=== PATIENT | female | born 1965 | race Caucasian/White ===

== ENCOUNTER → 2016-03-29 | Outpatient (CLI) | payer OTHER | END | disposition home or self-care (01) | LOC: LABWHC1 14:28 | PROVIDERS: ATTEND Psychiatry & Neurology Psychiatry | DX: F31.32 Bipolar disorder, current episode depressed, moderate (principal) | CPT/HCPCS: 36415; 80178 ==

== ENCOUNTER 2016-08-28 10:18 | Observation (INO) | payer OTHER ==
[2016-08-28] MEDS ORDERED: SODIUM CHLORIDE 0.9% 1,000 ML IV STA (10:25)
--- NOTE | 2016-08-28 10:29 | ED ---
General Adult HPI - General Stated complaint: Poss overdose Time Seen by Provider: 08/28/16 10:18 Source: RN notes reviewed - History of Present Illness Initial comments: This is an 50-year-old female who presents emergency Department after family found her with altered mental status. Family thinks she may have taken too many of her cervical. Patient denies this she is arousable with loud verbal or physical stimuli. Patient states she's been circled for quite a while she took her normal dose. Patient states she's also on pain medication. Patient states she did not take extra of her pain medication. Patient does not know why she is sleepy and tired. Patient states she did not take any [id number] medications such as Benadryl. Patient denies any recent drinking. Patient states she did not stay up late. Patient denies headache patient denies numbness weakness. Patient denies any lightheadedness dizziness or near syncopal episode. Patient denies palpitations. Patient denies abdominal pain patient denies nausea vomiting or diarrhea. Patient denies any recent fever chills. - Related Data Home Medications Medication Instructions Recorded Confirmed Butalb/APAP/Caff 50-325-40Mg 1 tab PO Q6H PRN 10/27/15 08/28/16 [Fioricet 50-325-40] [place] Carbonate 600 mg PO HS 10/27/15 08/28/16 Mirtazapine [Remeron] 15 mg PO HS 10/27/15 08/28/16 FLUoxetine HCL [PROzac] 40 mg PO HS 08/28/16 08/28/16 [place] Carbonate 300 mg PO QAM 08/28/16 08/28/16 [place] ER [Lithobid] 450 mg PO DAILY@1200 08/28/16 08/28/16 Mirtazapine [Remeron] 30 mg PO HS 08/28/16 08/28/16 Prazosin [Minipress] 1 mg PO HS 08/28/16 08/28/16 QUEtiapine FUMARATE [SEROquel] 600 mg PO HS 08/28/16 08/28/16 SUMAtriptan SUCCINATE [Imitrex] 50 mg PO ONCE PRN MDD 2 TABLETS 08/28/16 hydrOXYzine PAMOATE 50 mg PO TID PRN 08/28/16 08/28/16 oxyCODONE-APAP 10-325MG [Percocet 1 tab PO BID PRN 08/28/16 08/28/16 10-325 mg] Allergies Allergy/AdvReac Type Severity Reaction Status Date / Time morphine Allergy Unknown Verified 10/27/15 16:25 pregabalin [From Lyrica] AdvReac Severe Nausea & Verified 10/27/15 16:25 Vomiting Review of Systems ROS Statement: Those systems with pertinent positive or pertinent negative responses have been documented in the HPI. ROS Other: All systems not noted in ROS Statement are negative. Past Medical History Past Medical History: COPD, Hyperlipidemia Additional Past Medical History / Comment(s): back pain, traumatic brain injury History of Any Multi-Drug Resistant Organisms: None Reported Past Surgical History: Appendectomy, Breast Surgery, Section, Ear Surgery, Hysterectomy Additional Past Surgical History / Comment(s): polyps from colon/ exploratory, neck surgery Past Psychological History: Anxiety, Depression Smoking Status: Current every day smoker Past Alcohol Use History: None Reported Past Drug Use History: None Reported General Exam - General Exam Comments Initial Comments: GENERAL: Patient is well-developed and well-nourished. Patient is nontoxic and well- hydrated and is in no acute distress. Patient is very lethargic and falls asleep quickly while talking to him. ENT: Neck is soft and supple. No significant lymphadenopathy is noted. Oropharynx is clear. Moist mucous membranes. Neck has full range of motion without eliciting any pain. EYES: The sclera were anicteric and conjunctiva were pink and moist. Extraocular movements were intact and pupils were equal round and reactive to light. Eyelids were unremarkable. PULMONARY: Unlabored respirations. Good breath sounds bilaterally. No audible rales rhonchi or wheezing was noted. CARDIOVASCULAR: There is a regular rate and rhythm without any murmurs gallops or rubs. ABDOMEN: Soft and nontender with normal bowel sounds. No palpable organomegaly was noted. There is no palpable pulsatile mass. SKIN: Skin is clear with no lesions or rashes and otherwise unremarkable. NEUROLOGIC: Patient is alert and oriented 2. Cranial nerves II through XII are grossly intact. Motor and sensory are also intact. Normal speech, volume and content. Symmetrical smile. MUSCULOSKELETAL: Normal extremities with adequate strength and full range of motion. No lower extremity swelling or edema. No calf tenderness. LYMPHATICS: No significant lymphadenopathy is noted PSYCHIATRIC: Patient denies any suicidal homicidal ideations. Patient denies any intentional overdose. Patient denies having taken any extra medications. Course Vital Signs 08/28/16 08/28/16 08/28/16 10:24 11:12 12:00 Temperature 98.3 F Pulse Rate 110 H 101 H 89 Respiratory 18 14 18 Rate Blood Pressure 116/72 95/58 121/83 O2 Sat by Pulse 98 99 100 Oximetry Medical Decision Making - Medical Decision Making EKG shows normal sinus rhythm at 99 bpm OR interval is 196 QRS is 88 QT interval 370 QTC is 485 per patient's EKG shows no ST segment elevation or depression or T-wave abdomen is noted. Dr. Villagran came down and saw the patient wanted the patient admitted for polysubstance abuse. I wrote admitting orders. - Lab Data Result diagrams: 08/28/16 10:34 08/28/16 10:34 Lab Results 08/28/16 08/28/16 08/28/16 Range/Units 10:34 10:34 10:54 WBC 12.4 H (3.8-10.6) k/uL RBC 3.96 (3.80-5.40) m/uL Hgb 12.1 (11.4-16.0) gm/dL Hct 35.4 (34.0-46.0) % MCV 89.4 (80.0-100.0) fL MCH 30.5 (25.0-35.0) pg MCHC 34.1 (31.0-37.0) g/dL RDW 13.0 (11.5-15.5) % Plt Count 246 (150-450) k/uL Neutrophils % 77 % Lymphocytes % 13 % Monocytes % 8 % Eosinophils % 1 % Basophils % 0 % Neutrophils # 9.6 H (1.3-7.7) k/uL Lymphocytes # 1.6 (1.0-4.8) k/uL Monocytes # 0.9 (0-1.0) k/uL Eosinophils # 0.1 (0-0.7) k/uL Basophils # 0.0 (0-0.2) k/uL Sodium 142 (137-145) mmol/L Potassium 4.4 (3.5-5.1) mmol/L Chloride 111 H (98-107) mmol/L Carbon Dioxide 23 (22-30) mmol/L Anion Gap 8 mmol/L BUN 10 (7-17) mg/dL Creatinine 0.65 (0.52-1.04) mg/dL Est GFR (MDRD) Af Amer >60 (>60 ml/min/1.73 sqM) Est GFR (MDRD) Non-Af >60 (>60 ml/min/1.73 sqM) Glucose 102 H (74-99) mg/dL Calcium 9.1 (8.4-10.2) mg/dL Total Bilirubin 0.7 (0.2-1.3) mg/dL AST 26 (14-36) U/L ALT 20 (9-52) U/L Alkaline Phosphatase 94 (38-126) U/L Total Protein 6.8 (6.3-8.2) g/dL Albumin 4.0 (3.5-5.0) g/dL Urine HCG, Qual (Not Detectd) Salicylates <1.0 mg/dL Urine Opiates Screen Not Detected (NotDetected) Ur Oxycodone Screen Detected H (NotDetected) Urine Methadone Screen Not Detected (NotDetected) Ur Propoxyphene Screen Not Detected (NotDetected) Acetaminophen <10.0 ug/mL Ur Barbiturates Screen Not Detected (NotDetected) U Tricyclic Antidepress Detected H (NotDetected) Ur Phencyclidine Scrn Not Detected (NotDetected) Ur Amphetamines Screen Not Detected (NotDetected) U Methamphetamines Scrn Not Detected (NotDetected) U Benzodiazepines Scrn Not Detected (NotDetected) Urine Cocaine Screen Not Detected (NotDetected) U Marijuana (THC) Screen Detected H (NotDetected) Serum Alcohol <10 mg/dL 08/28/16 Range/Units 10:54 WBC (3.8-10.6) k/uL RBC (3.80-5.40) m/uL Hgb (11.4-16.0) gm/dL Hct (34.0-46.0) % MCV (80.0-100.0) fL MCH (25.0-35.0) pg MCHC (31.0-37.0) g/dL RDW (11.5-15.5) % Plt Count (150-450) k/uL Neutrophils % % Lymphocytes % % Monocytes % % Eosinophils % % Basophils % % Neutrophils # (1.3-7.7) k/uL Lymphocytes # (1.0-4.8) k/uL Monocytes # (0-1.0) k/uL Eosinophils # (0-0.7) k/uL Basophils # (0-0.2) k/uL Sodium (137-145) mmol/L Potassium (3.5-5.1) mmol/L Chloride (98-107) mmol/L Carbon Dioxide (22-30) mmol/L Anion Gap mmol/L BUN (7-17) mg/dL Creatinine (0.52-1.04) mg/dL Est GFR (MDRD) Af Amer (>60 ml/min/1.73 sqM) Est GFR (MDRD) Non-Af (>60 ml/min/1.73 sqM) Glucose (74-99) mg/dL Calcium (8.4-10.2) mg/dL Total Bilirubin (0.2-1.3) mg/dL AST (14-36) U/L ALT (9-52) U/L Alkaline Phosphatase (38-126) U/L Total Protein (6.3-8.2) g/dL Albumin (3.5-5.0) g/dL Urine HCG, Qual Not Detected (Not Detectd) Salicylates mg/dL Urine Opiates Screen (NotDetected) Ur Oxycodone Screen (NotDetected) Urine Methadone Screen (NotDetected) Ur Propoxyphene Screen (NotDetected) Acetaminophen ug/mL Ur Barbiturates Screen (NotDetected) U Tricyclic Antidepress (NotDetected) Ur Phencyclidine Scrn (NotDetected) Ur Amphetamines Screen (NotDetected) U Methamphetamines Scrn (NotDetected) U Benzodiazepines Scrn (NotDetected) Urine Cocaine Screen (NotDetected) U Marijuana (THC) Screen (NotDetected) Serum Alcohol mg/dL Disposition Clinical Impression: Polysubstance abuse, Accidental overdose Disposition: ADMITTED IP TO THIS [facility] Referrals: Nonstaff,Physician [REFERRING] - 1-2 days Time of Disposition: 12:37
[2016-08-28 10:44] LABS: Basophils % (A) 0 %; CH 29.8; CHCM 33.5; Eosinophils # (A) 0.1 k/uL (0-0.7); Eosinophils % (A) 1 %; HCT 35.4 % (34.0-46.0); HDW 2.74; HGB 12.1 gm/dL (11.4-16.0); Luc # (Auto) 0.13; Luc % (Auto) 1; Lymphocytes # (A) 1.6 k/uL (1.0-4.8); Lymphocytes % (A) 13 %; MCH 30.5 pg (25.0-35.0); MCHC 34.1 g/dL (31.0-37.0); MCV 89.4 fL (80.0-100.0); Monocytes # (A) 0.9 k/uL (0-1.0); Monocytes % (A) 8 %; Neutrophils # (A) 9.6 k/uL (1.3-7.7); Neutrophils % (A) 77 %; RBC 3.96 m/uL (3.80-5.40); WBC 12.4 k/uL (3.8-10.6); WBC (Perox) 12.57
[2016-08-28 10:55] LABS: Acetaminophen <10.0 ug/mL; Alcohol <10 mg/dL; Anion Gap 8 mmol/L; Calcium 9.1 mg/dL (8.4-10.2); Carbon Dioxide 23 mmol/L (22-30); Chloride 111 mmol/L (98-107); Glucose 102 mg/dL (74-99); Non-African American GFR(MDRD) >60 (>60 ml/min/1.73 sqM); Salicylate <1.0 mg/dL; Sodium 142 mmol/L (137-145); Total Bilirubin 0.7 mg/dL (0.2-1.3); Total Protein 6.8 g/dL (6.3-8.2)
[2016-08-28 10:58] LABS: ALT 20 U/L (9-52); AST 26 U/L (14-36); Alkaline Phosphatase 94 U/L (38-126); Blood Urea Nitrogen 10 mg/dL (7-17); Potassium 4.4 mmol/L (3.5-5.1)
--- NOTE | 2016-08-28 11:37 | CT ---
EXAMINATION TYPE: CT brain wo con DATE OF EXAM: 08/28/2016 COMPARISON: 10/27/2015 HISTORY: Possible overdose CT DLP: 1047.10 mGycm. Automated Exposure Control for Dose Reduction was Utilized. TECHNIQUE: CT scan of the head is performed without contrast. FINDINGS: Ventricles and sulci appear normal. There is no mass effect nor midline shift. There is no sign of intracranial hemorrhage. The calvarium is intact. There is mild mucosal thickening in the lef t maxillary sinus.. IMPRESSION: Negative CT scan of the brain. No change compared to old exam. Mild left maxillary sinusi tis.
[2016-08-28] MEDS ORDERED: SODIUM CHLORIDE 0.9% 1,000 ML IV ONE (12:49)
--- NOTE | 2016-08-28 13:31 | P.HPIM ---
History of Present Illness H&P Date: 08/28/16 Chief Complaint: Somnolence and poor responsiveness Patient is a 50-year-old white female well-known to my partner. She was seen in emergency room. Her daughter was at bedside. She receives Percocet 10/[address] Mena, and Lasix, lithium, mirtazapine, Seroquel, and Atarax from [facility]. He is followed by her daughter last night, sleepy, and difficult to arouse with all but loud stimulation. She will wake up and answer questions for me briefly. She quickly falls back asleep. Her daughter indicates the Seroquel is new. They do not believe she's taken the lithium, Remeron,or Minipress. She is unable to hold a conversation with me at this time. Review of Systems ROS unobtainable: due to mental status Past Medical History Past Medical History: COPD, Hyperlipidemia Additional Past Medical History / Comment(s): back pain, traumatic brain injury History of Any Multi-Drug Resistant Organisms: None Reported Past Surgical History: Appendectomy, Breast Surgery, Section, Ear Surgery, Hysterectomy Additional Past Surgical History / Comment(s): polyps from colon/ exploratory, neck surgery Past Psychological History: Anxiety, Depression Smoking Status: Current every day smoker Past Alcohol Use History: None Reported Past Drug Use History: None Reported Medications and Allergies Home Medications Medication Instructions Recorded Confirmed Type Butalb/APAP/Caff 50-325-40Mg 1 tab PO Q6H PRN 10/27/15 08/28/16 History [Fioricet 50-325-40] [place] Carbonate 600 mg PO HS 10/27/15 08/28/16 History Mirtazapine [Remeron] 15 mg PO HS 10/27/15 08/28/16 History FLUoxetine HCL [PROzac] 40 mg PO HS 08/28/16 08/28/16 History [place] Carbonate 300 mg PO QAM 08/28/16 08/28/16 History [place] Carbonate ER [Lithobid] 450 mg PO DAILY@1200 08/28/16 08/28/16 History Mirtazapine [Remeron] 30 mg PO HS 08/28/16 08/28/16 History Prazosin [Minipress] 1 mg PO HS 08/28/16 08/28/16 History QUEtiapine FUMARATE [SEROquel] 600 mg PO HS 08/28/16 08/28/16 History SUMAtriptan SUCCINATE [Imitrex] 50 mg PO ONCE PRN MDD 2 TABLETS 08/28/16 History hydrOXYzine PAMOATE 50 mg PO TID PRN 08/28/16 08/28/16 History oxyCODONE-APAP 10-325MG [Percocet 1 tab PO BID PRN 08/28/16 08/28/16 History 10-325 mg] Allergies Allergy/AdvReac Type Severity Reaction Status Date / Time morphine Allergy Unknown Verified 10/27/15 16:25 pregabalin [From Lyrica] AdvReac Severe Nausea & Verified 10/27/15 16:25 Vomiting Physical Exam Vitals: Vital Signs Temp Pulse Resp BP Pulse Ox 08/28/16 12:00 89 18 121/83 100 08/28/16 11:12 101 H 14 95/58 99 08/28/16 10:24 98.3 F 110 H 18 116/72 98 Intake and Output 08/27/16 08/28/16 08/28/16 22:59 06:59 14:59 Other: Weight 49.895 kg Patient Weight 08/29/16 06:59 Weight 49.895 kg GENERAL: Asleep, well-nourished HEAD: Atraumatic, normocephalic. EYES: Pupils equal round and reactive to light, extraocular movements intact, sclera anicteric, conjunctiva are normal. ENT:nares patent, oropharynx clear without exudates. Moist mucous membranes. NECK: Normal range of motion, supple without lymphadenopathy or JVD, no thyromegaly LUNGS: Breath sounds clear to auscultation bilaterally and equal. No wheezes rales or rhonchi. HEART: Regular rate and rhythm without murmurs, rubs or gallops.[id number] Normal ABDOMEN: Soft, normoactive bowel sounds. No guarding, no rebound. No masses appreciated. There is grimacing and pain complaints the bilateral lower quadrants. EXTREMITIES: Normal range of motion, no pitting or edema. No clubbing or cyanosis. NEUROLOGICAL: Somnolent, but awakens to speak. No focal deficits noticed. Cranial nerves II through XII are grossly intact on inspection. PSYCH: unTestable SKIN: Warm, Dry, normal turgor, no rashes or lesions noted. Results CBC & Chem 7: 08/28/16 10:34 08/28/16 10:34 Labs: Abnormal Lab Results - Last 24 Hours (Table) 08/28/16 08/28/16 08/28/16 Range/Units 10:34 10:34 10:54 WBC 12.4 H (3.8-10.6) k/uL Neutrophils # 9.6 H (1.3-7.7) k/uL Chloride 111 H (98-107) mmol/L Glucose 102 H (74-99) mg/dL Ur Oxycodone Screen Detected H (NotDetected) U Tricyclic Antidepress Detected H (NotDetected) U Marijuana (THC) Screen Detected H (NotDetected) CT Scan - head: report reviewed Thrombosis Risk Factor Assmnt - DVT/VTE Prophylaxis DVT/VTE Prophylaxis: Mechanical Prophylaxis ordered Assessment and Plan Plan: Suspected accidental polysubstance overdose: She'll be admitted and placed on telemetry, will consult Dr. Mena, I'll hold all sedating medications this time. Chronic low back pain: As above. hyperlipidemia: We'll monitor her Migraine: We'll hold her Fioricet, but she can have sumatriptan needed. Bipolar depression:check a lithium level, psych to see her. She'll be reevaluated next 24 hours. labs in a.m. customer support consultant recommendations pending. Neuro checks
[2016-08-28] MEDS ORDERED: SUMAtriptan SUCCINATE 50 MG TAB PO PRN (13:32)
[2016-08-28 15:01] VITALS: BMI 19.5
[2016-08-28] MEDS ORDERED: FLUoxetine HCL 20 MG CAP PO SCH (21:00)
[2016-08-28] MEDS ORDERED: PRAZOSIN 1 MG CAP PO SCH (21:00)
[2016-08-29 07:16] VITALS: BP 120/74; PULSE 69; RESP 18; TEMP 97.4
[2016-08-29 07:19] LABS: Basophils % (A) 0 %; CH 29.5; CHCM 32.6; Eosinophils # (A) 0.2 k/uL (0-0.7); Eosinophils % (A) 3 %; HCT 32.4 % (34.0-46.0); HDW 2.67; Luc # (Auto) 0.18; Luc % (Auto) 2; Lymphocytes # (A) 2.5 k/uL (1.0-4.8); Lymphocytes % (A) 27 %; MCH 30.9 pg (25.0-35.0); MCHC 33.9 g/dL (31.0-37.0); MCV 91.1 fL (80.0-100.0); Mean Platelet Volume 6.9; Monocytes # (A) 0.6 k/uL (0-1.0); Monocytes % (A) 7 %; Neutrophils # (A) 5.6 k/uL (1.3-7.7); Neutrophils % (A) 61 %; RBC 3.56 m/uL (3.80-5.40); RDW 13.1 % (11.5-15.5); WBC 9.1 k/uL (3.8-10.6); WBC (Perox) 9.83
[2016-08-29 07:23] LABS: Anion Gap 6 mmol/L; Blood Urea Nitrogen 7 mg/dL (7-17); Calcium 8.4 mg/dL (8.4-10.2); Carbon Dioxide 22 mmol/L (22-30); Chloride 115 mmol/L (98-107); Glucose 84 mg/dL (74-99); Non-African American GFR(MDRD) >60 (>60 ml/min/1.73 sqM); Potassium 3.9 mmol/L (3.5-5.1); Sodium 143 mmol/L (137-145)
--- NOTE | 2016-08-29 11:23 | P.DS ---
Providers Date of admission: 08/28/16 12:49 Expected date of discharge: 08/29/16 Attending physician: Rc Villagran Consults: 08/28/16 12:49 Consult Physician Urgent Consulting Provider: Kerry Mena Consult Reason/Comments: overdose Do you want consulting provider notified?: Yes Primary care physician: Rc Villagran - Discharge Diagnosis(es) (1) Accidental overdose [place] alert oriented x 3 Current Visit: Yes Status: Acute Patient Condition at Discharge: Stable Plan - Discharge Summary New Discharge Prescriptions: No Action Butalb/APAP/Caff 50-325-40Mg [Fioricet 50-325-40] 1 tab PO Q6H PRN PRN Reason: Headache [place] Carbonate 600 mg PO HS Mirtazapine [Remeron] 15 mg PO HS QUEtiapine FUMARATE [SEROquel] 600 mg PO HS SUMAtriptan SUCCINATE [Imitrex] 50 mg PO ONCE PRN MDD 2 TABLETS PRN Reason: Migraine Headache Prazosin [Minipress] 1 mg PO HS oxyCODONE-APAP 10-325MG [Percocet 10-325 mg] 1 tab PO BID PRN PRN Reason: Pain Mirtazapine [Remeron] [address] [place] Carbonate ER [Lithobid] 450 mg PO DAILY@1200 [place] Carbonate 300 mg PO QAM hydrOXYzine PAMOATE 50 mg PO TID PRN PRN Reason: Anxiety FLUoxetine HCL [PROzac] 40 mg PO HS Discharge Medication List Butalb/APAP/Caff 50-325-40Mg [Fioricet 50-325-40] 1 tab PO Q6H PRN 10/27/15 [ History] [place] Carbonate 600 mg PO HS 10/27/15 [History] Mirtazapine [Remeron] 15 mg PO HS 10/27/15 [History] FLUoxetine HCL [PROzac] 40 mg PO HS 08/28/16 [History] [place] Carbonate 300 mg PO QAM 08/28/16 [History] [place] Carbonate ER [Lithobid] 450 mg PO DAILY@1200 08/28/16 [History] Mirtazapine [Remeron] 30 mg PO HS 08/28/16 [History] Prazosin [Minipress] 1 mg PO HS 08/28/16 [History] QUEtiapine FUMARATE [SEROquel] 600 mg PO HS 08/28/16 [History] SUMAtriptan SUCCINATE [Imitrex] 50 mg PO ONCE PRN MDD 2 TABLETS 08/28/16 [ History] hydrOXYzine PAMOATE 50 mg PO TID PRN 08/28/16 [History] oxyCODONE-APAP 10-325MG [Percocet 10-325 mg] 1 tab PO BID PRN 08/28/16 [History] Follow up Appointment(s)/Referral(s): Nonstaff,Physician [REFERRING] - 1-2 days
== END 2016-08-29 12:07 | disposition home or self-care (01) ==
LOC: EC 10:18 → 4MS4W 12:49 → INTOOBSV 12:49
PROVIDERS: ADMIT Family Medicine; ATTEND Family Medicine
DX: T43.591A Poisoning by other antipsychotics and neuroleptics, accidental (unintentional), initial encounter (principal); R41.82 Altered mental status, unspecified; E78.5 Hyperlipidemia, unspecified; F41.9 Anxiety disorder, unspecified; F31.9 Bipolar disorder, unspecified; G89.29 Other chronic pain; M54.5 Low back pain; G43.909 Migraine, unspecified, not intractable, without status migrainosus; Z79.899 Other long term (current) drug therapy; Z88.5 Allergy status to narcotic agent; Z88.8 Allergy status to other drugs, medicaments and biological substances; F17.200 Nicotine dependence, unspecified, uncomplicated; Z87.820 Personal history of traumatic brain injury
CPT/HCPCS: 99285; 96360; 96361; 82075; 36415; 93005; 80053; 80048; 80178; 85025 ×2; 81025; 80306; 83520 ×2; 80320; 70450; G0378 ×2

== ENCOUNTER → 2016-09-27 | Outpatient (CLI) | payer OTHER ==
--- NOTE | 2016-09-27 08:08 | US ---
EXAMINATION TYPE: US gallbladder DATE OF EXAM: 09/27/2016 COMPARISON: US RUQ 2010 CLINICAL HISTORY: R10.11 Rt upper Quad Pain; nausea and vomiting. EXAM MEASUREMENTS: Liver Length: 12.3 cm Gallbladder Wall: 0.1 cm CBD: 0.6 cm Right Kidney: 9.3 x 5.3 x 3.9 cm Pancreas: Tail obscured by overlying bowel gas Liver: Homogeneous. Gallbladder: mobile, shadowing stone = 0.6 x 0.5 x 0.4cm noted in fundus in LLD position, then in ne ck in supine position Evidence for sonographic De Leon's sign: Yes CBD: wnl Right Kidney: wnl IMPRESSION: Cholelithiasis without sonographic evidence of cholecystitis. Note the multiple 6 mm gall stone does move dependently into the gallbladder neck at times.
== END | disposition home or self-care (01) ==
LOC: RADUSWWP 06:55
PROVIDERS: ATTEND Family Medicine
DX: K80.20 Calculus of gallbladder without cholecystitis without obstruction (principal); R11.10 Vomiting, unspecified
CPT/HCPCS: 76705

== ENCOUNTER 2016-10-10 18:37 | Emergency (ER) | payer OTHER ==
[2016-10-10 19:14] VITALS: RESP 18
[2016-10-10] MEDS ORDERED: HYDROmorphone 1 MG/ML 1 ML SYRINGE IVP STA (20:20)
[2016-10-10] MEDS ORDERED: ONDANSETRON 4 MG/2 ML VIAL IVP STA (20:20)
--- NOTE | 2016-10-10 20:37 | ED ---
Abdominal Pain HPI - General Chief Complaint: Abdominal Pain Stated Complaint: Gall bladder pain Time Seen by Provider: 10/10/16 20:14 Source: patient, RN notes reviewed Mode of arrival: ambulatory Limitations: no limitations - History of Present Illness Initial Comments: 51-year-old female presents emergency Department with chief complaint abdominal pain. Patient states she's been having abdominal pain last 2 months had an ultrasound 2 weeks ago which showed gallstones. Patient states she has been referred to a surgeon though she does not know with surgeon is. Patient states his appointment is in 2 weeks. She states that she's had increasing pain and cannot tolerate it. Patient states she took an oxycodone prior arrival with minimal relief of her symptoms. Patient denies any vomiting states she has nausea no diarrhea no constipation. Denies any known fever or chills. - Related Data Home Medications Medication Instructions Recorded Confirmed Mirtazapine [Remeron] 15 mg PO HS 10/27/15 10/10/16 FLUoxetine HCL [PROzac] 40 mg PO QAM 08/28/16 10/10/16 [place] Carbonate 900 mg PO HS 08/28/16 10/10/16 Prazosin [Minipress] 3 mg PO HS 08/28/16 10/10/16 QUEtiapine FUMARATE [SEROquel] 600 mg PO HS 08/28/16 10/10/16 SUMAtriptan SUCCINATE [Imitrex] 50 mg PO BID PRN MDD 2 TABLETS 08/28/16 10/10/16 hydrOXYzine PAMOATE 50 mg PO TID PRN 08/28/16 10/10/16 oxyCODONE-APAP 10-325MG [Percocet 1 tab PO BID PRN 08/28/16 10/10/16 10-325 mg] Allergies Allergy/AdvReac Type Severity Reaction Status Date / Time pregabalin [From Lyrica] Allergy Unknown Itching/Hola Verified 10/10/16 20:59 sea/Vomitin g/Headache morphine Allergy Itching/Hola Verified 10/10/16 20:59 sea/Vomitin g/Headache Review of Systems ROS Statement: Those systems with pertinent positive or pertinent negative responses have been documented in the HPI. ROS Other: All systems not noted in ROS Statement are negative. Past Medical History Past Medical History: COPD, Hyperlipidemia Additional Past Medical History / Comment(s): back pain, traumatic brain injury History of Any Multi-Drug Resistant Organisms: None Reported Past Surgical History: Appendectomy, Bladder Surgery, Breast Surgery, Section, Ear Surgery, Hysterectomy, Orthopedic Surgery Additional Past Surgical History / Comment(s): polyps from colon/ exploratory, neck surgery, right shoulder surgery. Past Anesthesia/Blood Transfusion Reactions: No Reported Reaction Past Psychological History: Anxiety, Bipolar, Depression Smoking Status: Current every day smoker Past Alcohol Use History: None Reported Past Drug Use History: Marijuana - Past Family History Mother Family Medical History: Diabetes Mellitus Father Family Medical History: COPD General Exam Limitations: no limitations General appearance: alert, in no apparent distress Respiratory exam: Present: normal lung sounds bilaterally. Absent: respiratory distress, wheezes, rales, rhonchi, stridor Cardiovascular Exam: Present: regular rate, normal rhythm, normal heart sounds. Absent: systolic murmur, diastolic murmur, rubs, gallop, clicks GI/Abdominal exam: Present: soft, tenderness (Moderate right upper quadrant), normal bowel sounds. Absent: distended, guarding, rebound, rigid Back exam: Absent: CVA tenderness (R), CVA tenderness (L) Skin exam: Present: warm, dry, intact, normal color. Absent: rash Course Vital Signs 10/10/16 10/10/16 19:11 20:42 Temperature 97.9 F Pulse Rate 82 74 Respiratory 18 18 Rate Blood Pressure 137/74 147/88 O2 Sat by Pulse 99 99 Oximetry Medical Decision Making - Medical Decision Making 51-year-old female presented emergency department for abdominal pain and biliary colic symptoms. Patient states she feels much improved at this time lab work does not reveal any acute liver enzyme changes or elevation bilirubin. Patient will be discharged at this time advised to follow-up with surgeon - Lab Data Result diagrams: 10/10/16 20:38 10/10/16 20:38 Lab Results 10/10/16 10/10/16 10/10/16 Range/Units 20:38 20:38 20:38 WBC 14.6 H (3.8-10.6) k/uL RBC 4.60 (3.80-5.40) m/uL Hgb 13.3 (11.4-16.0) gm/dL Hct 42.5 (34.0-46.0) % MCV 92.3 (80.0-100.0) fL MCH 28.9 (25.0-35.0) pg MCHC 31.3 (31.0-37.0) g/dL RDW 13.7 (11.5-15.5) % Plt Count 399 (150-450) k/uL Neutrophils % 49 % Lymphocytes % 39 % Monocytes % 7 % Eosinophils % 2 % Basophils % 1 % Neutrophils # 7.1 (1.3-7.7) k/uL Lymphocytes # 5.7 H (1.0-4.8) k/uL Monocytes # 1.0 (0-1.0) k/uL Eosinophils # 0.3 (0-0.7) k/uL Basophils # 0.1 (0-0.2) k/uL Sodium 139 (137-145) mmol/L Potassium 3.8 (3.5-5.1) mmol/L Chloride 106 (98-107) mmol/L Carbon Dioxide 21 L (22-30) mmol/L Anion Gap 12 mmol/L BUN 8 (7-17) mg/dL Creatinine 0.70 (0.52-1.04) mg/dL Est GFR (MDRD) Af Amer >60 (>60 ml/min/1.73 sqM) Est GFR (MDRD) Non-Af >60 (>60 ml/min/1.73 sqM) Glucose 84 (74-99) mg/dL Calcium 9.4 (8.4-10.2) mg/dL Total Bilirubin 0.4 (0.2-1.3) mg/dL AST 19 (14-36) U/L ALT 25 (9-52) U/L Alkaline Phosphatase 97 (38-126) U/L Total Protein 7.1 (6.3-8.2) g/dL Albumin 4.4 (3.5-5.0) g/dL Amylase 67 (30-110) U/L Lipase 84 (23-300) U/L Urine Color Yellow Urine Appearance Cloudy H (Clear) Urine pH 6.0 (5.0-8.0) Ur Specific [place] 1.009 (1.001-1.035) Urine Protein Negative (Negative) Urine Glucose (UA) Negative (Negative) Urine Ketones Negative (Negative) Urine Blood Small H (Negative) Urine Nitrite Negative (Negative) Urine Bilirubin Negative (Negative) Urine Urobilinogen <2.0 (<2.0) mg/dL Ur Leukocyte Esterase Small H (Negative) Urine RBC 3 (0-5) /hpf Urine WBC 10 H (0-5) /hpf Ur Squamous Epith Cells 8 H (0-4) /hpf Amorphous Sediment Rare H (None) /hpf Urine Mucus Rare H (None) /hpf Disposition Clinical Impression: Cholelithiasis Disposition: HOME SELF-CARE Condition: Stable Instructions: Gallstones (ED) Additional Instructions: Please return to the Emergency Department if symptoms worsen or any other concerns. Referrals: Chaz Brown Jr, DO [Primary Care Provider] - 1-2 days Time of Disposition: 21:41
[2016-10-10 20:51] LABS: Basophils # (A) 0.1 k/uL (0-0.2); Basophils % (A) 1 %; CH 29.6; CHCM 32.2; Eosinophils # (A) 0.3 k/uL (0-0.7); Eosinophils % (A) 2 %; HCT 42.5 % (34.0-46.0); HDW 2.53; HGB 13.3 gm/dL (11.4-16.0); Luc # (Auto) 0.39; Luc % (Auto) 3; Lymphocytes # (A) 5.7 k/uL (1.0-4.8); Lymphocytes % (A) 39 %; MCH 28.9 pg (25.0-35.0); MCHC 31.3 g/dL (31.0-37.0); MCV 92.3 fL (80.0-100.0); Mean Platelet Volume 7.4; Monocytes % (A) 7 %; Neutrophils # (A) 7.1 k/uL (1.3-7.7); Neutrophils % (A) 49 %; RDW 13.7 % (11.5-15.5); WBC 14.6 k/uL (3.8-10.6); WBC (Perox) 14.67
[2016-10-10 20:54] LABS: Amorphous Sediment,Urine Rare /hpf; Appearance,Urine Cloudy (Clear); Bilirubin,Urine Negative (Negative); Glucose,Urine (UA) Negative (Negative); Ketones,Urine Negative (Negative); Leukocyte Esterase,Urine Small (Negative); Mucus,Urine Rare /hpf; Nitrite,Urine Negative (Negative); Particle Count 2622; Protein,Urine Negative (Negative); RBC,Urine 3 /hpf (0-5); Specific Gravity,Urine 1.009 (1.001-1.035); Squamous Epithelial Cell,Urine 8 /hpf (0-4); UA Billing (MACRO vs. MICRO) MICRO; Urobilinogen,Urine <2.0 mg/dL (<2.0); WBC,Urine 10 /hpf (0-5)
[2016-10-10 21:02] LABS: ALT 25 U/L (9-52); AST 19 U/L (14-36); Alkaline Phosphatase 97 U/L (38-126); Amylase 67 U/L (30-110); Anion Gap 12 mmol/L; Blood Urea Nitrogen 8 mg/dL (7-17); Calcium 9.4 mg/dL (8.4-10.2); Carbon Dioxide 21 mmol/L (22-30); Chloride 106 mmol/L (98-107); Glucose 84 mg/dL (74-99); Non-African American GFR(MDRD) >60 (>60 ml/min/1.73 sqM); Potassium 3.8 mmol/L (3.5-5.1); Sodium 139 mmol/L (137-145); Total Bilirubin 0.4 mg/dL (0.2-1.3); Total Protein 7.1 g/dL (6.3-8.2)
[2016-10-10 21:57] VITALS: BP 142/91; PULSE 65; TEMP 97
== END 2016-10-10 21:55 | disposition home or self-care (01) ==
LOC: EC 18:37
DX: K80.20 Calculus of gallbladder without cholecystitis without obstruction (principal); F41.9 Anxiety disorder, unspecified; F31.9 Bipolar disorder, unspecified; F17.200 Nicotine dependence, unspecified, uncomplicated; Z90.710 Acquired absence of both cervix and uterus; Z90.49 Acquired absence of other specified parts of digestive tract; Z79.899 Other long term (current) drug therapy; Z88.5 Allergy status to narcotic agent; Z88.8 Allergy status to other drugs, medicaments and biological substances; Z98.890 Other specified postprocedural states
CPT/HCPCS: 96374 ×2; 96375 ×2; 99284 ×2; 36415; 80053; 82150; 83690; 85025; 81001; J2405; J1170

== ENCOUNTER 2016-11-01 08:42 | Day surgery (SDC) | payer OTHER ==
[2016-10-30 12:24] VITALS: BMI 23.0
[~2016-11-01 08:42] MED LIST: DEXAMETHASONE SOD PHOSPHATE 10 MG/ML 1 ML VIAL IV ONE; HEPARIN SODIUM,PORCINE 5,000 UNIT/ML 1 ML VIAL SQ ONE; LACTATED RINGERS 1,000 ML IV SCH; LIDOCAINE 1% 20 ML VIAL (10MG/ML) FOR IV START INTRADERMA PRN; MIDAZOLAM 2 MG/2 ML VIAL IV PRN; ONDANSETRON 4 MG/2 ML VIAL IVP ONE; SCOPOLAMINE 1.5MG/72HR PATCH TRANSDERM ONE; ceFAZolin 2 GM in SODIUM CHLORIDE 0.9% 100 ML IVPB ONE
--- NOTE | 2016-11-01 09:09 | P.GSHP ---
History of Present Illness H&P Date: 11/01/16 Chief Complaint: Right upper quadrant pain This is a 51-year-old female referred from [facility]. Patient's had complaints of right quadrant pain. Her symptoms was evidence of cholelithiasis. She presents today for laparoscopic cholecystectomy. Past Medical History Past Medical History: COPD, Hyperlipidemia Additional Past Medical History / Comment(s): back pain, traumatic brain injury History of Any Multi-Drug Resistant Organisms: None Reported Past Surgical History: Appendectomy, Bladder Surgery, Breast Surgery, Section, Ear Surgery, Hysterectomy, Orthopedic Surgery Additional Past Surgical History / Comment(s): polyps from colon/ exploratory, neck surgery, right shoulder surgery, 3 Breast BX Past Anesthesia/Blood Transfusion Reactions: No Reported Reaction Smoking Status: Current every day smoker - Past Family History Mother Family Medical History: Diabetes Mellitus Father Family Medical History: COPD Medications and Allergies Home Medications Medication Instructions Recorded Confirmed Type Mirtazapine [Remeron] 15 mg PO HS 10/27/15 11/01/16 History FLUoxetine HCL [PROzac] 40 mg PO QAM 08/28/16 11/01/16 History [place] Carbonate 900 mg PO HS 08/28/16 11/01/16 History Prazosin [Minipress] 3 mg PO HS 08/28/16 11/01/16 History QUEtiapine FUMARATE [SEROquel] 600 mg PO HS 08/28/16 11/01/16 History hydrOXYzine PAMOATE 50 mg PO TID PRN 08/28/16 11/01/16 History oxyCODONE-APAP 10-325MG [Percocet 1 tab PO BID PRN 08/28/16 11/01/16 History 10-325 mg] SUMAtriptan SUCCINATE [Imitrex] 50 mg PO ONCE PRN 10/30/16 11/01/16 History Allergies Allergy/AdvReac Type Severity Reaction Status Date / Time pregabalin [From Lyrica] Allergy Unknown Itching/Hola Verified 11/01/16 08:52 sea/Vomitin g/Headache morphine Allergy Itching/Hola Verified 11/01/16 08:52 sea/Vomitin g/Headache Surgical - Exam Vital Signs Temp Pulse Resp BP Pulse Ox 97.9 F 88 16 98/67 97 11/01/16 08:58 11/01/16 08:58 11/01/16 08:58 11/01/16 08:58 11/01/16 08:58 - General well developed, no distress - Eyes PERRL - ENT normal pinna - Neck no masses - Respiratory normal expansion - Cardiovascular Rhythm: regular - Abdomen Mild right upper quadrant tenderness Abdomen: soft Assessment and Plan Plan: Right upper quadrant pain Cholelithiasis We'll perform laparoscopic cholecystectomy.
[2016-11-01] MEDS ORDERED: NEOSTIGMINE 1 MG/ML 10 ML VIAL ONE (09:18)
[2016-11-01] MEDS ORDERED: SUCCINYLCHOLINE CHLORIDE 100 MG/5 ML SYR IV ONE (09:18)
[2016-11-01] MEDS ORDERED: KETOROLAC 30 MG/ML 1 ML VIAL ONE (09:18)
[2016-11-01] MEDS ORDERED: LIDOCAINE 1% INJ 10MG/ML (20 ML MDV) ONE (09:18)
[2016-11-01] MEDS ORDERED: MIDAZOLAM 2 MG/2 ML VIAL ONE (09:18)
[2016-11-01] MEDS ORDERED: fentaNYL (PF) 50 MCG/ML 2 ML AMP ONE (09:18)
[2016-11-01] MEDS ORDERED: ROCURONIUM BROMIDE 10 MG/ML 10 ML VIAL IV ONE (09:18)
[2016-11-01] MEDS ORDERED: GLYCOPYRROLATE 0.2 MG/ML 2 ML VIAL ONE (09:18)
[2016-11-01] MEDS ORDERED: PROPOFOL 10 MG/ML 20 ML VIAL IV ONE (09:18)
[2016-11-01] MEDS ORDERED: BUPIVACAINE-EPI 0.5%-1:200,000 10 ML VIAL SQ ONE (09:40)
[2016-11-01] MEDS ORDERED: BUPIVACAINE (PF) 0.5% 30 ML VIAL SQ ONE (09:40)
--- NOTE | 2016-11-01 10:03 | P.OP ---
Date of Procedure: 11/01/16 Preoperative Diagnosis: Cholelithiasis Cholecystitis Postoperative Diagnosis: Lithiasis Cholecystitis Procedure(s) Performed: Laparoscopic cholecystectomy Implants: Anesthesia: SHREYA Surgeon: Star Azul Estimated Blood Loss (ml): 5 Pathology: other (Gallbladder) Condition: stable Disposition: PACU Indications for Procedure: Operative Findings: Description of Procedure: The patient was placed on the operating table. The patient received a general endotracheal tube anesthesia. The patients abdomen was prepped and draped in the usual sterile fashion. Through an infraumbilical stab incision, the fascia of the anterior abdominal wall was grasped with a pair of Kochers and then the Veress needle was placed in the peritoneal cavity. Position of the Veress needle was confirmed with positive drop test. The abdomen was then insufflated. After adequate insufflation, the 10 mm trocar was placed in the peritoneal cavity. Following this the laparoscope was placed in the peritoneal cavity. The patient was placed in the head-up, right side up position and then a 5 mm trocar was placed in the right lateral and right subcostal position under direct visualization. A 8 mm trocar was placed in the epigastric position. The gallbladder was grasped in the fundus and infundibulum. Traction on the gallbladder was placed in the lateral and the cephalad positions. The triangle of [place] was visualized.. The cystic duct was bluntly dissected until the union of the cystic duct and common bile duct was seen. The cystic duct was then divided and sealed with the Harmonic scissors. A PDS Endoloop was then placed throughout the cystic duct stump. The cystic artery divided and sealed with the Harmonic scissors. The gallbladder was then removed from the liver bed using Harmonic scissors. The gallbladder was then extracted through the epigastric port site. Operative field was checked for any bleeding spots and Harmonic scissors was used to coagulate the liver bed. The abdomen was irrigated. The trocars were removed. The skin was closed using interrupted 3-0 Vicryl suture. Dermabond dressing were applied. The patient tolerated the procedure well.
[2016-11-01] MEDS: HYDROmorphone 1 MG/ML 1 ML SYRINGE IVP PRN ×4 (10:35→10:59)
[2016-11-01 10:51] VITALS: TEMP 98
[2016-11-01 11:01] VITALS: RESP 16
[2016-11-01] MEDS ORDERED: LACTATED RINGERS 1,000 ML IV ONE ×2 (11:04)
[2016-11-01] MEDS ORDERED: MEPERIDINE 50 MG/ML SYRINGE IVP ONE (11:15)
[2016-11-01] MEDS ORDERED: MIDAZOLAM 2 MG/2 ML VIAL IVP ONE (11:41)
[2016-11-01] MEDS ORDERED: HYDROcodone/APAP 7.5-325MG 1 EACH TAB PO ONE (12:30)
[2016-11-01 12:59] VITALS: BP 119/60; PULSE 88
== END 2016-11-01 13:04 | disposition home or self-care (01) ==
LOC: OR 08:42
PROVIDERS: ATTEND Surgery
DX: K80.10 Calculus of gallbladder with chronic cholecystitis without obstruction (principal); J44.9 Chronic obstructive pulmonary disease, unspecified; E78.5 Hyperlipidemia, unspecified; I10 Essential (primary) hypertension; F12.90 Cannabis use, unspecified, uncomplicated; J45.909 Unspecified asthma, uncomplicated; K21.9 Gastro-esophageal reflux disease without esophagitis; F17.200 Nicotine dependence, unspecified, uncomplicated; Z88.5 Allergy status to narcotic agent; Z88.8 Allergy status to other drugs, medicaments and biological substances; Z79.899 Other long term (current) drug therapy
CPT/HCPCS: 88304; 47562; J2250; J1644; J1100; J2710; J2175; J0690; J2405; J2001; J3010; J1885; J1170; J0330; J2704

== ENCOUNTER → 2016-11-12 | Outpatient (CLI) | payer OTHER ==
--- NOTE | 2016-11-12 20:10 | MR ---
EXAMINATION TYPE: MR cervical spine wo/w con DATE OF EXAM: 11/12/2016 COMPARISON: NONE HISTORY: 51-year-old female cervicalgia, neck pain. Technique: Multiplanar, multisequence images of the cervical spine were obtained before and after adm inistration of 6.5 mL IV Gadavist gadolinium contrast. FINDINGS: Postsurgical changes of C5-C6. No craniocervical junction abnormality, predental space widening, or prevertebral soft tissue swellin g. Normal alignment of the cervical spine. No suspicious bony interval placement. Vertebral mild intervertebral disc desiccation. Small posterior disc bulge below the fusion at C6/C7 with posterior annular fissure. Scattered facet degenerative changes present. C2-C3, mild facet degenerative change without canal or foraminal stenosis. At C3-C4, mild facet degenerative change without canal or foraminal stenosis. At C4-C5, mild facet degenerative change without canal or foraminal stenosis. At C5-C6, uncovertebral joint and facet degenerative change. This results in moderate bilateral neuro foraminal stenosis without significant spinal canal stenosis. Below the fusion at C6/C7, mild facet degenerative change and mild posterior disc bulge. No significa nt spinal canal or foraminal stenosis. At C7-T1, mild facet degenerative change without significant canal or foraminal stenosis. No abnormal enhancement within the spinal canal. Normal course, caliber, and signal intensity of the cervical cord. Some cystic change noted within the mildly hypertrophied adenoids. IMPRESSION: 1. Status post C5-C6 ACDF. There is moderate bony spondylotic neuroforaminal narrowing on both sides at this level. 2. Mild multilevel degenerative disc disease and scattered facet arthropathy. There is minimal packaging operator ior disc bulge below the fusion at C6/C7 with annular fissure. 3. No canal compromise.
== END | disposition home or self-care (01) ==
LOC: RADMRIMAIN 11:57
PROVIDERS: ATTEND Psychiatry & Neurology Pain Medicine
DX: M99.71 Connective tissue and disc stenosis of intervertebral foramina of cervical region (principal); M50.223 Other cervical disc displacement at C6-C7 level; M47.812 Spondylosis without myelopathy or radiculopathy, cervical region; M46.82 Other specified inflammatory spondylopathies, cervical region; Z98.1 Arthrodesis status
CPT/HCPCS: 72156; A9581

== ENCOUNTER 2017-01-24 17:44 | Emergency (ER) | payer MEDICARE, OTHER ==
[2017-01-24 17:55] VITALS: BP 115/60; PULSE 75; RESP 18; TEMP 98.5
--- NOTE | 2017-01-24 18:09 | ED ---
General Adult HPI - General Chief complaint: Extremity Injury, Upper Stated complaint: rt collar bone pain Time Seen by Provider: 01/24/17 17:56 Source: patient, RN notes reviewed Mode of arrival: ambulatory Limitations: no limitations - History of Present Illness Initial comments: This is a 51-year-old female who presents to emergency department with chief complaint of shoulder pain. Patient states that she has an appointment to see Dr. Chirinos, orthopedic surgeon on 02/04/2017. She states that she has been struggling with chronic pain since her previous right shoulder surgery. She had a brain injury and was hospitalized in February 2015. She reports that when she was a patient in the hospital she fell out of bed and hurt her right shoulder which she needed surgery on. She states that she feels that her collarbone is going underneath her scapula. She states the pain is increasingly worse and she is having difficulty sleeping. She [facility] today to see if she could get a sooner appointment and she is unable to. Patient presents today requesting prescription for pain medication until she is able to follow up with her orthopedic surgeon. Denies fever, chills, chest pain, shortness of breath, abdominal pain, nausea or vomiting, constipation or diarrhea, dysuria or hematuria, numbness or tingling, headache or vision changes. - Related Data Home Medications Medication Instructions Recorded Confirmed Mirtazapine [Remeron] 15 mg PO HS 10/27/15 01/24/17 FLUoxetine HCL [PROzac] 40 mg PO QAM 08/28/16 01/24/17 [place] Carbonate 900 mg PO HS 08/28/16 01/24/17 Prazosin [Minipress] 3 mg PO HS 08/28/16 01/24/17 QUEtiapine FUMARATE [SEROquel] 600 mg PO HS 08/28/16 01/24/17 hydrOXYzine PAMOATE 50 mg PO TID PRN 08/28/16 01/24/17 SUMAtriptan SUCCINATE [Imitrex] 50 mg PO ONCE PRN 10/30/16 01/24/17 Previous Rx's Medication Instructions Recorded Docusate [Colace] 100 mg PO BID #20 capsule 11/01/16 HYDROcodone/APAP 5-325MG [[place] 5] 1 each PO Q6HR PRN #12 tab 01/24/17 Allergies Allergy/AdvReac Type Severity Reaction Status Date / Time pregabalin [From Lyrica] Allergy Unknown Itching/Hola Verified 01/24/17 18:04 sea/Vomitin g/Headache morphine Allergy Itching/Hola Verified 01/24/17 18:04 sea/Vomitin g/Headache Review of Systems ROS Statement: Those systems with pertinent positive or pertinent negative responses have been documented in the HPI. ROS Other: All systems not noted in ROS Statement are negative. Past Medical History Past Medical History: COPD, Hyperlipidemia Additional Past Medical History / Comment(s): back pain, traumatic brain injury History of Any Multi-Drug Resistant Organisms: None Reported Past Surgical History: Appendectomy, Bladder Surgery, Breast Surgery, Section, Ear Surgery, Hysterectomy, Orthopedic Surgery Additional Past Surgical History / Comment(s): polyps from colon/ exploratory, neck surgery, right shoulder surgery. Past Anesthesia/Blood Transfusion Reactions: No Reported Reaction Past Psychological History: Anxiety, Bipolar, Depression Smoking Status: Current every day smoker Past Alcohol Use History: None Reported Past Drug Use History: None Reported - Past Family History Mother Family Medical History: Diabetes Mellitus Father Family Medical History: COPD General Exam - General Exam Comments Initial Comments: General: Awake and alert, well-developed; in no apparent distress. HEENT: Head atraumatic, normocephalic. Pupils are equal, round and reactive to light. Extraocular movements intact. Neck: Supple. Normal ROM. Cardiovascular: Regular rate and rhythm. No murmurs, rubs or gallops. Chest symmetrical. Respiratory: Lungs clear to auscultation bilaterally. No wheezes, rales or rhonchi. Normal respiratory effort with no use of accessory muscles. Musculoskeletal: Patient refuses to fully move right shoulder due to pain. Obvious bony prominence on superior right shoulder that is tender with palpation. Sensation is intact. Radial pulses are 2+ equal and palpable bilaterally. Skin: [place], warm and dry without rashes or lesions. Neurological: Alert and oriented x3. CN II-XII grossly intact. Speech is fluent and answers are appropriate. No focal neuro deficits. Psychiatric: Normal mood and affect. No overt signs of depression or anxiety noted. Limitations: no limitations Course Vital Signs 01/24/17 17:52 Temperature 98.5 F Pulse Rate 75 Respiratory 18 Rate Blood Pressure 115/60 O2 Sat by Pulse 98 Oximetry Medical Decision Making - Medical Decision Making This is a 51-year-old female who presents to the emergency department with request for pain medication. Patient states that she is scheduled to have an appointment with Dr. Merida, and orthopedic surgeon on February 04, 2017. She states she is to undergo right shoulder surgery. Patient is unable to get a sooner appointment with surgeon. She states that her pain has been progressively worsening and she is not on any pain medications. There is obvious deformity at superior right shoulder which is tender to palpation. Patient will be discharged home with a prescription for [place]. She is to follow -up with her surgeon. She is in agreement with an understanding. All questions were answered. Disposition Clinical Impression: Encounter for pain management, Chronic right shoulder pain Disposition: HOME SELF-CARE Condition: Good Instructions: Shoulder Pain (ED), Hydrocodone/Acetaminophen (By mouth) Additional Instructions: Please take medications as prescribed. Please follow up with primary care provider within 1-2 days. Return to emergency department if symptoms should worsen or any concerns arise. Prescriptions: HYDROcodone/APAP 5-325MG [[place] 5] 1 each PO Q6HR PRN #12 tab PRN Reason: Pain Referrals: Chaz Brown Jr, DO [Primary Care Provider] - 1-2 days Time of Disposition: 18:28
== END 2017-01-24 18:33 | disposition home or self-care (01) ==
LOC: EC 17:44
DX: G89.29 Other chronic pain (principal); M25.511 Pain in right shoulder; F31.9 Bipolar disorder, unspecified; F41.9 Anxiety disorder, unspecified; F17.200 Nicotine dependence, unspecified, uncomplicated; Z79.899 Other long term (current) drug therapy; Z88.5 Allergy status to narcotic agent; Z88.8 Allergy status to other drugs, medicaments and biological substances; Z98.890 Other specified postprocedural states
CPT/HCPCS: 99283

== ENCOUNTER 2017-02-13 22:16 | Emergency (ER) | payer OTHER ==
[2017-02-13 22:23] VITALS: RESP 18
[2017-02-13] MEDS ORDERED: NAPROXEN 250 MG TAB PO STA (22:51)
[2017-02-13] MEDS ORDERED: METHOCARBAMOL 750 MG TAB PO PRN (22:51)
--- NOTE | 2017-02-13 22:57 | ED ---
Back Pain HPI - General Chief Complaint: Back Pain/Injury Stated Complaint: Back Pain Time Seen by Provider: 02/13/17 22:29 Source: patient, family Limitations: no limitations - History of Present Illness Initial Comments: Patient presents with a chief complaint of left-sided lower back pain. The patient states that she has chronic issues. She used to be under the care of pain management however she did not like taking narcotic medications so she took herself off. The patient uses anti-inflammatories [id number]. She states that recently she was moving a lot of boxes at home and thinks that this is what exacerbated her pain. Aggravating factors include moving, bending, and twisting. There are no alleviating factors. The patient has tried warm compresses and hot baths. The patient states that she recently did get a new bed. She does not have any medical ALLERGIES. - Related Data Home Medications Medication Instructions Recorded Confirmed Mirtazapine [Remeron] 15 mg PO HS 10/27/15 02/13/17 FLUoxetine HCL [PROzac] 40 mg PO QAM 08/28/16 02/13/17 [place] Carbonate 900 mg PO HS 08/28/16 02/13/17 hydrOXYzine PAMOATE See Taper PO DIRECTED 08/28/16 02/13/17 Ipratropium/Albuterol Sulfate 1 puff INHALATION RT-QID PRN 02/13/17 02/13/17 [Combivent Respimat Inhaler] Multivitamins, Thera [Multivitamin 1 tab PO DAILY 02/13/17 02/13/17 (formulary)] Previous Rx's Medication Instructions Recorded Lidocaine 5% Patch [Lidoderm 5% 1 patch TOPICAL DAILY #30 patch 02/13/17 Patch] Methocarbamol [Robaxin-750] 750 mg PO TID #20 tablet 02/13/17 Naproxen [Naprosyn] 500 mg PO Q12HR #30 tab 02/13/17 Allergies Allergy/AdvReac Type Severity Reaction Status Date / Time pregabalin [From Lyrica] Allergy Unknown Itching/Hola Verified 02/13/17 22:33 sea/Vomitin g/Headache morphine Allergy Itching/Hola Verified 02/13/17 22:33 sea/Vomitin g/Headache Review of Systems ROS Statement: Those systems with pertinent positive or pertinent negative responses have been documented in the HPI. ROS Other: All systems not noted in ROS Statement are negative. Constitutional: Denies: fever Eyes: Denies: vision change Respiratory: Denies: cough Cardiovascular: Denies: chest pain Gastrointestinal: Denies: abdominal pain Genitourinary: Denies: dysuria Musculoskeletal: Reports: back pain Neurological: Denies: headache Past Medical History Past Medical History: COPD, Hyperlipidemia Additional Past Medical History / Comment(s): back pain, traumatic brain injury History of Any Multi-Drug Resistant Organisms: None Reported Past Surgical History: Appendectomy, Bladder Surgery, Breast Surgery, Section, Ear Surgery, Hysterectomy, Orthopedic Surgery Additional Past Surgical History / Comment(s): polyps from colon/ exploratory, neck surgery, right shoulder surgery. Past Anesthesia/Blood Transfusion Reactions: No Reported Reaction Past Psychological History: Anxiety, Bipolar, Depression Smoking Status: Current every day smoker Past Alcohol Use History: None Reported Past Drug Use History: None Reported - Past Family History Mother Family Medical History: Diabetes Mellitus Father Family Medical History: COPD General Exam Limitations: no limitations General appearance: alert, in no apparent distress Head exam: Present: atraumatic, normocephalic Respiratory exam: Present: normal lung sounds bilaterally Cardiovascular Exam: Present: regular rate, normal rhythm GI/Abdominal exam: Present: soft. Absent: distended, tenderness Back exam: Present: tenderness, muscle spasm, paraspinal tenderness Neurological exam: Present: alert, oriented X3 Psychiatric exam: Present: normal affect, normal mood Skin exam: Present: warm, dry, intact Course Vital Signs 02/13/17 22:20 Temperature 97.4 F L Pulse Rate 78 Respiratory 18 Rate Blood Pressure 114/73 O2 Sat by Pulse 100 Oximetry Medical Decision Making - Medical Decision Making Patient presents with a chief complaint of nontraumatic back pain. History and physical examination are consistent with acute on chronic low back pain. On examination, the patient has paraspinal tenderness and some bogginess of the muscles on the left side. I discussed treatment options with the patient, she is agreeable to muscle relaxers, naproxen, and lidocaine patches. Patient will be given her first dose here in the emergency department, I will write prescriptions for outpatient use. She is instructed to follow up with primary care and return to the emergency department if her symptoms worsen or change. She is given explicit signs and symptoms that should prompt immediate return visit to the emergency department. In the emergency department, the patient was observed to ambulate well without assistance. Disposition Clinical Impression: Mechanical back pain, Strain of lumbar region Disposition: HOME SELF-CARE Condition: Good Instructions: Chronic Back Pain (ED) Prescriptions: Lidocaine 5% Patch [Lidoderm 5% Patch] 1 patch TOPICAL DAILY #30 patch Methocarbamol [Robaxin-750] 750 mg PO TID #20 tablet Naproxen [Naprosyn] 500 mg PO Q12HR #30 tab Referrals: Chaz Brown Jr, DO [Primary Care Provider] - 1-2 days
[2017-02-13] MEDS ORDERED: LIDOCAINE 5% PATCH TOPICAL SCH (23:00)
[2017-02-13 23:23] VITALS: BP 115/57; PULSE 87; TEMP 98.2
== END 2017-02-13 23:23 | disposition home or self-care (01) ==
LOC: EC 22:16
DX: S39.012A Strain of muscle, fascia and tendon of lower back, initial encounter (principal); F31.9 Bipolar disorder, unspecified; F17.200 Nicotine dependence, unspecified, uncomplicated; Z88.5 Allergy status to narcotic agent; Z88.8 Allergy status to other drugs, medicaments and biological substances; Z79.899 Other long term (current) drug therapy; X50.0XXA Overexertion from strenuous movement or load, initial encounter; Y92.009 Unspecified place in unspecified non-institutional (private) residence as the place of occurrence of the external cause
CPT/HCPCS: 99283

== ENCOUNTER → 2017-04-16 | Outpatient (CLI) | payer OTHER ==
--- NOTE | 2017-04-16 08:58 | CT ---
EXAMINATION TYPE: CT abdomen pelvis wo con DATE OF EXAM: 04/16/2017 COMPARISON: NONE HISTORY: Epigastric pain CT DLP: 792 mGycm Automated exposure control for dose reduction was used. TECHNIQUE: Helical acquisition of images was performed from the lung bases through the pelvis utiliz ing oral contrast per protocol. Lack of intravenous contrast limits evaluation of the solid viscera. FINDINGS: LUNG BASES: Minimal bibasilar subsegmental dependent atelectasis is noted. LIVER/GB: Unenhanced gallbladder is unremarkable in morphology. A single surgical clip versus stone i s seen at the cystic duct remnant with surgical absence of the gallbladder. PANCREAS: No ductal dilatation SPLEEN: No splenomegaly. ADRENALS: No adrenal gland thickening or nodularity. KIDNEYS: Kidneys are symmetric in morphology without nephrolithiasis. FREE AIR: No free air is visualized ADENOPATHY: No greater than 1 cm short axis lymph nodes are seen within the abdomen or pelvis. REPRODUCTIVE ORGANS: Uterus appears surgically absent. URINARY BLADDER: No significant abnormality is seen. OSSEOUS STRUCTURES: Minimal multilevel degenerative changes are seen. BOWEL: No evidence of bowel dilation or focal bowel wall thickening. OTHER: Minimal calcific atheromatous changes are seen of the abdominal aorta and its branches. IMPRESSION: 1. AT THE CYSTIC DUCT THERE IS A LINEAR DENSITY THAT LIKELY REPRESENTS A SINGLE METALLIC SURGICAL CLI P, HOWEVER THIS DOES NOT MEASURE [place]FIELD UNITS OF METAL DENSITY AND LESS LIKELY COULD REPRESENT A CYSTIC DUCT STONE. CORRELATE WITH SERUM BILIRUBIN TO DETERMINE THE NEED FOR MRCP. 2. NO EVIDENCE OF FOCAL BOWEL WALL THICKENING OR BOWEL OBSTRUCTION.
== END | disposition home or self-care (01) ==
LOC: RADCTMAIN 07:17
PROVIDERS: ATTEND Family Medicine
DX: R10.13 Epigastric pain (principal); Z98.890 Other specified postprocedural states
CPT/HCPCS: 74176

== ENCOUNTER → 2017-04-22 | Outpatient (CLI) | payer OTHER ==
--- NOTE | 2017-04-22 12:21 | MR ---
EXAMINATION TYPE: MR MRCP DATE OF EXAM: 04/22/2017 COMPARISON: CT abdomen pelvis dated 04/16/2017. HISTORY: Epigastric pain Standard multiplanar, multisequence MRI departmental protocol Multiplanar MultiSpin echo imaging of the biliary tree was performed. 3-D [id number] images were also reviewed at the workstation. FINDINGS: Noted are changes of prior cholecystectomy. There is intra and extrahepatic biliary ductal dilatation which may be postsurgical in nature. No biliary filling defects identified. Common bile duct measure s 8 mm. No evidence of pancreatic ductal dilatation. The liver demonstrates changes of hepatic steato sis. No intrahepatic lesions are detected. No pancreatic masses are seen. Spleen and adrenal glands a nd kidneys are grossly unremarkable. Atheromatous and ectatic change of the abdominal aorta. IMPRESSION: 1. Mild intra and extrahepatic biliary ductal dilatation likely related to prior surgical interventio n. No evidence for filling defect to suggest stone or lesion at this time.
== END | disposition home or self-care (01) ==
LOC: RADMRIMAIN 08:34
PROVIDERS: ATTEND Family Medicine
DX: K83.8 Other specified diseases of biliary tract (principal)
CPT/HCPCS: 74181

== ENCOUNTER → 2017-09-05 | Outpatient (CLI) | payer OTHER ==
[2017-09-05 13:53] LABS: Lithium 0.7 mmol/L
[2017-09-05 14:09] LABS: T4, Free (Free Thyroxine) 0.93 ng/dL (0.78-2.19)
[2017-09-05 19:29] LABS: Hemoglobin A1C 5.4 % (4.0-6.0)
== END | disposition home or self-care (01) ==
LOC: LABWHC1 12:40
PROVIDERS: ATTEND Psychiatry & Neurology Psychiatry
DX: Z51.81 Encounter for therapeutic drug level monitoring (principal); Z79.899 Other long term (current) drug therapy
CPT/HCPCS: 36415; 80178; 82947; 83036; 84439; 84443

== ENCOUNTER 2017-10-09 17:20 | Emergency (ER) | payer MEDICARE, OTHER ==
[2017-10-09 18:23] VITALS: BP 115/75; PULSE 84; RESP 18; TEMP 98.4
[2017-10-09] MEDS ORDERED: IBUPROFEN 600 MG TAB PO STA (18:50)
[2017-10-09] MEDS ORDERED: CYCLOBENZAPRINE 5 MG TAB PO STA (18:50)
--- NOTE | 2017-10-09 19:20 | XR ---
EXAMINATION TYPE: XR shoulder complete RT DATE OF EXAM: 10/09/2017 COMPARISON: NONE HISTORY: Shoulder pain TECHNIQUE: 3 views FINDINGS: There is deformity of the lateral end of the clavicle related to old fracture with widening of the AC joint space. There is a screw in the greater tuberosity of the humerus. I see no acute fra cture nor dislocation. There is calcification in the coracoclavicular ligament. IMPRESSION: Old right clavicle fracture with deformity. Previous surgery. Fracture is new compared to old chest x-ray 05/02/2011.
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
== END 2017-10-09 19:58 | disposition home or self-care (01) ==
LOC: EC 17:20
DX: S39.012A Strain of muscle, fascia and tendon of lower back, initial encounter (principal); M25.511 Pain in right shoulder; G89.29 Other chronic pain; J44.9 Chronic obstructive pulmonary disease, unspecified; F31.9 Bipolar disorder, unspecified; F41.9 Anxiety disorder, unspecified; F42.9 Obsessive-compulsive disorder, unspecified; F17.200 Nicotine dependence, unspecified, uncomplicated; Z79.899 Other long term (current) drug therapy; Z88.5 Allergy status to narcotic agent; Z88.8 Allergy status to other drugs, medicaments and biological substances; Z98.890 Other specified postprocedural states; X50.9XXA Other and unspecified overexertion or strenuous movements or postures, initial encounter
CPT/HCPCS: 99283

== ENCOUNTER → 2018-03-18 | Outpatient (CLI) | payer MEDICARE, OTHER ==
--- NOTE | 2018-03-18 11:43 | FL ---
COMPARISON: NONE DATE OF EXAM: 03/18/2018 HISTORY: Dysphasia A number of thin and thick substances were ingested under the care of the department of speech pathol ogy. There is no evidence of aspiration. There is no evidence of obstruction. Penetration is seen with ingestion of thin barium. IMPRESSION: 1. Penetration with ingestion of thin barium.
== END | disposition home or self-care (01) ==
LOC: RADFLMAIN 10:58
PROVIDERS: ATTEND Otolaryngology
DX: R13.10 Dysphagia, unspecified (principal); R43.0 Anosmia
CPT/HCPCS: 74230

== ENCOUNTER → 2018-03-18 | Outpatient (CLI) | payer MEDICARE, OTHER ==
--- NOTE | 2018-03-18 08:58 | MR ---
PRE AND POSTCONTRAST ENHANCED MRI OF THE BRAIN: CLINICAL HISTORY: And nausea CONTRAST: 7.5 mL Gadavist Multiplanar and multispin-echo imaging of the brain was performed both before and after the administr ation of contrast. There are abnormal foci of increased signal on the T2 FLAIR inversion recovery data set within the blackburn bcortical/juxtacortical regions of the left frontal lobe and left temporal lobe. There is no evidence for acute edema on diffusion weighted imaging. There appears to be mild adjacent encephalomalacia. N o pathologic enhancement is identified. Remaining brain parenchyma is homogeneous without additional abnormal signal seen. The ventricles are midline and demonstrate mild prominence. There is no evidence for midline shift or mass effect. Acute intracranial hemorrhage or extra-axial collection is not evident. Following contrast administration, there is no evidence for pathologic enhancement or enhancing mass. The paranasal sinuses are well-aerated. Small amount of fluid within the right-sided mastoid air cell s may reflect chronic right-sided mastoiditis. IMPRESSION: 1. Abnormal subcortical/juxtacortical increased signal involving the left frontal lobe and left tempo ral lobe may reflect remote insult or sequela from prior infection. Other etiologies not excluded. Th ere is no evidence for pathologic enhancement or acute edema diffusion weighted imaging. 2. Mild chronic right-sided mastoiditis.
== END | disposition home or self-care (01) ==
LOC: RADMRIMAIN 07:39
PROVIDERS: ATTEND Otolaryngology
DX: H70.91 Unspecified mastoiditis, right ear (principal); R90.89 Other abnormal findings on diagnostic imaging of central nervous system; R43.0 Anosmia; R13.10 Dysphagia, unspecified
CPT/HCPCS: 70553; A9585

== ENCOUNTER → 2018-06-13 | Outpatient (CLI) | payer MEDICARE, OTHER ==
--- NOTE | 2018-06-13 12:24 | ECHOS ---
STRESS ECHOCARDIOGRAM DATE OF SERVICE: 06/13/2018 INDICATIONS: Chest pain. MEDICATIONS: BASELINE HEART RATE: 80 BASELINE BLOOD PRESSURE: 117/65 MAXIMUM HEART RATE: 127 MAXIMUM BLOOD PRESSURE: 168/72 85% MPHR: 144 100% MPHR: 169 METS: 7.1 MAXIMUM STAGE REACHED: II TOTAL EXERCISE TIME: 5-1/2 minutes. CLINICAL INFORMATION: Baseline EKG revealed a sinus mechanism with baseline artifact, precordial nonspecific T-wave flattening and inversion. The patient walked for 5-1/2 minutes achieved a maximal heart rate of 127 beats per minute which is well below 85% of her predicted maximal. There was a lot of artifact. However, there was also inferolateral ST- segment depression without subjective symptoms of angina. These EKG changes with slightly abnormal resting EKG make this an inconclusive stress test. The heart rate was also inadequate making this an additional inconclusive stress test. By EKG criteria, this is an inconclusive stress test without subjective symptoms of angina. There were resting EKG changes and there was inadequate chronotropic response. Baseline echo images revealed normal wall motion and wall thickening of all segments. At peak exercise and at a heart rate of only 127 beats per minute, there was no evidence of any ischemia. There was vigorous contractility of the left ventricle noted involving all segments. FINAL IMPRESSION: 1. Limited exercise capacity with inconclusive stress test because of minor resting EKG changes and inadequate chronotropic response. There were more prominent ST- segment changes, but technically this is an inconclusive stress test. 2. At the above-mentioned stress level, there is no evidence of ischemia. 3. If clinically myocardial ischemia is suspected, she will benefit from a coronary angiography or pharmacological stress testing. Results were discussed with Dr. Brown and I will be seeing the patient in the office shortly. MMODL / IJN: [id number] /
--- NOTE | 2018-06-17 14:26 | HM ---
HOLTER MONITOR REPORT The patient did not have any entries in the diary. There was no diary provided actually. Predominant rhythm appears to be sinus with a heart rate ranging of 48-120 beats per minute with average heart rate of 74 beats per minute. There was a lot of artifact noted. There were isolated PACs and PVCs noted. There was no evidence of any SVT, VT or bradyarrhythmia. IMPRESSION: This is an unremarkable 24 hour DCG recording with predominant sinus rhythm with average heart rate of 74 beats per minute. No entries were noted in the diary. There was no significant tachy or bradyarrhythmia. Rare isolated PACs and PVCs were noted. MMODL / IJN: [id number] /
== END | disposition home or self-care (01) ==
LOC: RADNMMAIN 09:10
PROVIDERS: ATTEND Family Medicine
DX: R07.1 Chest pain on breathing (principal); Z88.5 Allergy status to narcotic agent; Z88.8 Allergy status to other drugs, medicaments and biological substances
CPT/HCPCS: 93225; 93226; 93351

== ENCOUNTER 2018-07-24 08:12 | Emergency (ER) | payer MEDICARE, OTHER ==
[2018-07-24] MEDS ORDERED: ORPHENADRINE 30 MG/ML 2 ML VIAL IM STA (09:27)
[2018-07-24] MEDS ORDERED: HYDROcodone/APAP 10-325MG 1 EACH TAB PO ONE (09:27)
[2018-07-24] MEDS ORDERED: KETOROLAC 60 MG/2 ML VIAL IM STA (09:27)
--- NOTE | 2018-07-24 09:56 | XR ---
EXAMINATION TYPE: XR lumbar spine 2 or 3V DATE OF EXAM: 07/24/2018 CLINICAL HISTORY: History of fall with back pain radiating down the left lower extremity TECHNIQUE: Frontal and lateral images of the lumbar spine are obtained. COMPARISON: 08/22/2014 FINDINGS: There are 5 lumbar type vertebral bodies identified. However there is sacralization of the L5 vertebral body and hypoplastic 12th ribs. There is a mild dextroscoliosis of the lumbar spine. T he lumbar spine shows satisfactory alignment without evidence of acute fracture or dislocation. Verte bral body heights and disk space heights are within normal limits. Mild multilevel facet arthropathy is seen of the lower lumbar spine as well as very small anterior osteophytes. The overlying soft tiss ue appears unremarkable. IMPRESSION: No acute fracture or dislocation is seen in the lumbar spine. Mild dextroscoliosis and m ild multilevel degenerative changes of the spine.
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
[2018-07-24 10:28] VITALS: BP 120/81; PULSE 103; RESP 18; TEMP 98
== END 2018-07-24 10:51 | disposition home or self-care (01) ==
LOC: EC 08:12
DX: M54.5 Low back pain (principal); G89.29 Other chronic pain; M41.86 Other forms of scoliosis, lumbar region; M47.816 Spondylosis without myelopathy or radiculopathy, lumbar region; E78.5 Hyperlipidemia, unspecified; F31.9 Bipolar disorder, unspecified; F41.9 Anxiety disorder, unspecified; F17.200 Nicotine dependence, unspecified, uncomplicated; Z88.5 Allergy status to narcotic agent; Z88.8 Allergy status to other drugs, medicaments and biological substances; Z79.899 Other long term (current) drug therapy
CPT/HCPCS: 72100; 99284; 96372 ×2; J2360; J1885

== ENCOUNTER 2018-11-15 10:17 | Emergency (ER) | payer MEDICARE, OTHER ==
[2018-11-15 10:23] VITALS: TEMP 98.2
[2018-11-15] MEDS ORDERED: ORPHENADRINE 30 MG/ML 2 ML VIAL IM STA (11:15)
[2018-11-15] MEDS ORDERED: KETOROLAC 60 MG/2 ML VIAL IM STA (11:15)
--- NOTE | 2018-11-15 11:34 | ED ---
Extremity Problem HPI - General Chief complaint: Extremity Problem,Nontraumatic Stated complaint: Hip pain Time Seen by Provider: 11/15/18 10:59 Source: patient, RN notes reviewed, old records reviewed Mode of arrival: wheelchair Limitations: no limitations - History of Present Illness Initial comments: Patient is a 33-year-old female presents emergency department today when she went of right hip pain. She reports having this pain off and on for years. She was physical therapy last week and reports that he's been working her more hard with her physical therapy. Patient reports that she's been having history of falls due to a fall back in 2014 she fell on stairs. Patient reports she had brain damage and had his chronic back pain since that time. She has had no recent imaging on her hip or back. She denies any saddle anesthesias. She was taking Motrin for pain. - Related Data Home Medications Medication Instructions Recorded Confirmed [place] Carbonate 300 mg PO HS 08/28/16 11/15/18 Atorvastatin [Lipitor] 20 mg PO DAILY 07/24/18 11/15/18 Mirtazapine [Remeron] 30 mg PO HS 07/24/18 11/15/18 OLANZapine [ZyPREXA] 10 mg PO HS 07/24/18 11/15/18 Prazosin HCl 4 mg PO HS 07/24/18 11/15/18 Topiramate [Topamax] 100 mg PO HS 07/24/18 11/15/18 Cariprazine HCl [Vraylar] 6 mg PO DAILY 11/15/18 11/15/18 Multivitamins, Thera [Multivitamin 1 tab PO DAILY 11/15/18 11/15/18 (formulary)] clonazePAM [KlonoPIN] 1 mg PO HS 11/15/18 11/15/18 Previous Rx's Medication Instructions Recorded Ibuprofen 600 mg PO TID #20 tablet 07/24/18 Cyclobenzaprine [Flexeril] 10 mg PO TID #10 tab 11/15/18 Allergies Allergy/AdvReac Type Severity Reaction Status Date / Time pregabalin [From Lyrica] Allergy Unknown Itching/Hola Verified 11/15/18 11:21 sea/Vomitin g/Headache morphine Allergy Itching/Hola Verified 11/15/18 11:21 sea/Vomitin g/Headache Review of Systems ROS Statement: Those systems with pertinent positive or pertinent negative responses have been documented in the HPI. ROS Other: All systems not noted in ROS Statement are negative. Past Medical History Past Medical History: COPD, Hyperlipidemia Additional Past Medical History / Comment(s): back pain, traumatic brain injury, chronic hip pain History of Any Multi-Drug Resistant Organisms: None Reported Past Surgical History: Appendectomy, Bladder Surgery, Breast Surgery, Section, Ear Surgery, Hysterectomy, Orthopedic Surgery Additional Past Surgical History / Comment(s): polyps from colon/ exploratory, neck surgery, right shoulder surgery. Past Anesthesia/Blood Transfusion Reactions: No Reported Reaction Past Psychological History: Anxiety, Bipolar, Depression Smoking Status: Former smoker Past Alcohol Use History: None Reported Past Drug Use History: None Reported - Past Family History Mother Family Medical History: Diabetes Mellitus Father Family Medical History: COPD General Exam - General Exam Comments Initial Comments: 53-year-old female. Alert and oriented 3. Patient appears in no significant distress. Limitations: no limitations General appearance: alert, in no apparent distress Head exam: Present: atraumatic, normocephalic, normal inspection Eye exam: Present: normal appearance, PERRL, EOMI. Absent: scleral icterus, conjunctival injection, periorbital swelling ENT exam: Present: normal exam, mucous membranes moist Respiratory exam: Present: normal lung sounds bilaterally. Absent: respiratory distress, wheezes, rales, rhonchi, stridor Cardiovascular Exam: Present: regular rate GI/Abdominal exam: Present: soft, normal bowel sounds. Absent: distended, tenderness, guarding, rebound, rigid Extremities exam: Present: normal inspection, full ROM, normal capillary refill, other (Patient has tenderness over the hamstring. Normal pulse distally. Full range of motion of the knee and ankle joint. She does report some pain with external rotation of the right hip.). Absent: tenderness, pedal edema, joint swelling, calf tenderness Back exam: Present: normal inspection Neurological exam: Present: alert, oriented X3, CN II-XII intact Psychiatric exam: Present: normal affect, normal mood Skin exam: Present: warm Course Vital Signs 11/15/18 10:21 Temperature 98.2 F Pulse Rate 89 Respiratory 18 Rate Blood Pressure 117/67 O2 Sat by Pulse 99 Oximetry Medical Decision Making - Medical Decision Making This patient's a 53-year-old female, she presents emergency room today with chief complaint of right hip and lower back pain. Worse since her last physical therapy. She reports a history of frequent falls. She states that she has had a recent imaging. The same patient's hip x-ray shows evidence of some mild dementia and is concerned for femoral acetabular syndrome. Lumbar spine x-ray was reviewed and negative for minor degenerative disc changes. Patient was given IM Toradol and Norflex. On reevaluation she is improved. I discussed that we can decide 100 anti-inflammatory medication and she reports most lasted for patient's pain really. Discussion is follow-up with her primary care doctor and PTT. Discussed a scenario is sore. All questions were answered return parameters were discussed. - Radiology Data Radiology results: report reviewed No acute osseous lesions identified. Evidence of dextroscoliosis. Minimal degenerative changes noted. Hip x-ray shows no acute osseous lesion. Please correlate for femoral acetabular impingement syndrome. This is read by Dr. Cotto. Disposition Clinical Impression: Hip strain, DDD (degenerative disc disease), lumbar Disposition: HOME SELF-CARE Condition: Good Instructions (If sedation given, give patient instructions): Hip Sprain (ED), Low Back Strain (ED) Additional Instructions: Patient advised to continue taking anti-inflammatory medication. Patient can alternate heat and ice over the areas that are sore. Is a short course of muscle relaxers as well for pain relief and muscle spasm. Return to the em ergency department if any alarming signs or symptoms occur. Prescriptions: Cyclobenzaprine [Flexeril] 10 mg PO TID #10 tab Is patient prescribed a controlled substance at d/c from ED?: No Referrals: Chaz Brown Jr, DO [Primary Care Provider] - 1-2 days Time of Disposition: 12:03
--- NOTE | 2018-11-15 11:44 | XR ---
EXAMINATION TYPE: XR Hip RT and AP Pelvis , 3 VIEWS DATE OF EXAM ORDERED: 11/15/2018 HISTORY: PAIN, HX FALLS. COMPARISON: None. FINDINGS: Osseous structures about the pelvis are normal. No fracture or dislocation is seen. There are multiple phleboliths within the pelvis. Amorphous calcification overlying the sacrum on the right may represent fibroid change. The right hip joint is maintained. No fracture is seen. The right femo ral head is nonspherical. IMPRESSION: 1. NO ACUTE OSSEOUS LESION. 2. PLEASE CORRELATE FOR FEMOROACETABULAR IMPINGEMENT SYNDROME.
--- NOTE | 2018-11-15 11:46 | XR ---
EXAMINATION TYPE: XR lumbar spine 2 or 3V , 3 VIEWS DATE OF EXAM ORDERED: 11/15/2018 HISTORY: PAIN, HX FALLS. COMPARISON: None. FINDINGS: There is gentle dextroscoliosis. Vertebral body height and alignment are maintained. There is no spondylolysis or spondylolisthesis. T here is mild hypertrophic spondylosis at L3-4 and L4-5. No fractures are identified. The pedicles are intact. IMPRESSION: 1. NO ACUTE OSSEOUS LESION. 2. GENTLE DEXTROSCOLIOSIS. 3. MINIMAL DEGENERATIVE CHANGE.
[2018-11-15 12:37] VITALS: BP 128/70; PULSE 78; RESP 16
== END 2018-11-15 12:27 | disposition home or self-care (01) ==
LOC: EC 10:17
DX: S76.011A Strain of muscle, fascia and tendon of right hip, initial encounter (principal); M51.36 Other intervertebral disc degeneration, lumbar region; E78.5 Hyperlipidemia, unspecified; F31.9 Bipolar disorder, unspecified; F41.9 Anxiety disorder, unspecified; Z87.891 Personal history of nicotine dependence; Z88.5 Allergy status to narcotic agent; Z88.8 Allergy status to other drugs, medicaments and biological substances; Z79.899 Other long term (current) drug therapy; Z87.820 Personal history of traumatic brain injury; Z91.81 History of falling; X58.XXXA Exposure to other specified factors, initial encounter
CPT/HCPCS: 72100; 73502; 99284; 96372 ×2; J2360; J1885

== ENCOUNTER → 2018-12-04 | Outpatient (CLI) | payer MEDICARE, OTHER ==
[2018-12-04 11:54] LABS: Basophils # (A) 0.1 k/uL (0-0.2); Basophils % (A) 1 %; Eosinophils # (A) 0.3 k/uL (0-0.7); Eosinophils % (A) 3 %; HCT 43.4 % (34.0-46.0); HGB 13.8 gm/dL (11.4-16.0); Lymphocytes # (A) 3.7 k/uL (1.0-4.8); Lymphocytes % (A) 34 %; MCH 30.3 pg (25.0-35.0); MCHC 31.9 g/dL (31.0-37.0); MCV 95.2 fL (80.0-100.0); Mean Platelet Volume 6.3; Monocytes # (A) 0.5 k/uL (0-1.0); Monocytes % (A) 5 %; Neutrophils # (A) 6.2 k/uL (1.3-7.7); Neutrophils % (A) 57 %; Platelet Count 290 k/uL (150-450); RBC 4.56 m/uL (3.80-5.40); RDW 12.3 % (11.5-15.5); WBC 10.9 k/uL (3.8-10.6)
[2018-12-04 17:41] LABS: ALT 28 U/L (8-44); AST 21 U/L (13-35); African American GFR (CKD) 98.2 (60.0-200.0); Albumin/Globulin Ratio 2.47 (1.60-3.17); Alkaline Phosphatase 105 U/L (41-126); Bilirubin, Conjugated <0.20 mg/dL (0.20-0.40); Chol/HDL Ratio 3.44; Cholesterol 141 mg/dL (0-200); Globulin 1.9 g/dL (1.6-3.3); Glucose 101 mg/dL (70-110); LDL Cholesterol,Calculated 70.4 mg/dL (0.0-131.0); Total Bilirubin 0.2 mg/dL (0.2-1.2); Total Protein 6.6 g/dL (6.2-8.2)
[2018-12-04 20:45] LABS: Hemoglobin A1C 5.6 % (4.0-6.0)
== END | disposition home or self-care (01) ==
LOC: LABWHC1 11:01
PROVIDERS: ATTEND Nurse Practitioner Family
DX: Z51.81 Encounter for therapeutic drug level monitoring (principal); Z79.899 Other long term (current) drug therapy
CPT/HCPCS: 36415; 80061; 80076; 82565; 82947; 83036; 84439; 84443; 84520; 85025

== ENCOUNTER 2019-01-01 17:30 | Observation (INO) | payer MEDICARE, OTHER ==
[2019-01-01] MEDS ORDERED: SODIUM CHLORIDE 0.9% 500 ML 500 ML IV STA (18:15)
--- NOTE | 2019-01-01 18:22 | ED ---
General Adult HPI - General Chief complaint: Weakness Stated complaint: Weak, Near syncope Time Seen by Provider: 01/01/19 17:35 Source: patient, RN notes reviewed Mode of arrival: ambulatory Limitations: no limitations - History of Present Illness Initial comments: This is a 53-year-old female who presents emergency Department with a past medical history significant for closed head injury. Patient states she has passed out 5 or 6 times in the last 2 weeks. Patient states it occurred twice today. Patient states she stands up becomes very lightheaded and started to go black and she has to sit down and recover before she can get up again. Patient states when this occurs she has no chest pain no palpitations no difficulty breathing shortness of breath. Patient states she has been vomiting once a day for the last 2 months. Patient states she has not followed up with primary medical care doctor for this. Patient denies any abdominal pain patient denies any diarrhea. Patient denies any recent fever chills or cough. Patient states currently sitting in bed she has no symptoms other than feeling weak all over - Related Data Home Medications Medication Instructions Recorded Confirmed [place] Carbonate 300 mg PO HS 08/28/16 01/01/19 Atorvastatin [Lipitor] 20 mg PO DAILY 07/24/18 01/01/19 Prazosin HCl 4 mg PO HS 07/24/18 01/01/19 Topiramate [Topamax] 100 mg PO HS 07/24/18 01/01/19 Cariprazine HCl [Vraylar] 6 mg PO DAILY 11/15/18 01/01/19 Multivitamins, Thera [Multivitamin 1 tab PO DAILY 11/15/18 01/01/19 (formulary)] clonazePAM [KlonoPIN] 1 mg PO HS 11/15/18 01/01/19 [place] Carbonate 150 mg PO HS 01/01/19 01/01/19 Montelukast [Singulair] 10 mg PO HS 01/01/19 01/01/19 OLANZapine [ZyPREXA] 5 mg PO HS 01/01/19 01/01/19 tiZANidine HCL [Zanaflex] 4 mg PO TID 01/01/19 01/01/19 Previous Rx's Medication Instructions Recorded Ibuprofen 600 mg PO TID #20 tablet 07/24/18 Allergies Allergy/AdvReac Type Severity Reaction Status Date / Time pregabalin [From Lyrica] Allergy Unknown Itching/Hola Verified 01/01/19 18:54 sea/Vomitin g/Headache morphine Allergy Itching/Hola Verified 01/01/19 18:54 sea/Vomitin g/Headache Review of Systems ROS Statement: Those systems with pertinent positive or pertinent negative responses have been documented in the HPI. ROS Other: All systems not noted in ROS Statement are negative. Past Medical History Past Medical History: COPD, Hyperlipidemia Additional Past Medical History / Comment(s): back pain, traumatic brain injury, chronic hip pain History of Any Multi-Drug Resistant Organisms: None Reported Past Surgical History: Appendectomy, Bladder Surgery, Breast Surgery, Section, Ear Surgery, Hysterectomy, Orthopedic Surgery Additional Past Surgical History / Comment(s): polyps from colon/ exploratory, neck surgery, right shoulder surgery. Past Anesthesia/Blood Transfusion Reactions: No Reported Reaction Past Psychological History: Anxiety, Bipolar, Depression Smoking Status: Former smoker Past Alcohol Use History: None Reported Past Drug Use History: None Reported - Past Family History Mother Family Medical History: Diabetes Mellitus Father Family Medical History: COPD General Exam - General Exam Comments Initial Comments: GENERAL: Patient is well-developed and well-nourished. Patient is nontoxic and well- hydrated and is in no acute distress. ENT: Neck is soft and supple. No significant lymphadenopathy is noted. Oropharynx is clear. Moist mucous membranes. Neck has full range of motion without eliciting any pain. EYES: The sclera were anicteric and conjunctiva were pink and moist. Extraocular movements were intact and pupils were equal round and reactive to light. Eyelids were unremarkable. PULMONARY: Unlabored respirations. Good breath sounds bilaterally. No audible rales rhonchi or wheezing was noted. CARDIOVASCULAR: There is a regular rate and rhythm without any murmurs gallops or rubs. ABDOMEN: Soft and nontender with normal bowel sounds. No palpable organomegaly was noted. There is no palpable pulsatile mass. SKIN: Skin is clear with no lesions or rashes and otherwise unremarkable. NEUROLOGIC: Patient is alert and oriented x3. Cranial nerves II through XII are grossly intact. Motor and sensory are also intact. Normal speech, volume and content. Symmetrical smile. MUSCULOSKELETAL: Normal extremities with adequate strength and full range of motion. No lower extremity swelling or edema. No calf tenderness. LYMPHATICS: No significant lymphadenopathy is noted PSYCHIATRIC: Normal psychiatric evaluation. Limitations: no limitations Course Vital Signs 01/01/19 01/01/19 01/01/19 17:34 18:56 20:00 Temperature 97.5 F L 97.4 F L Pulse Rate 74 55 L Pulse Rate [ 62 Sitting] Pulse Rate [ 77 Standing] Pulse Rate [ 90 Supine] Respiratory 20 20 Rate Blood Pressure 83/55 89/69 Blood Pressure 101/57 [Sitting] Blood Pressure 95/74 [Standing] Blood Pressure 86/61 [Supine] O2 Sat by Pulse 99 97 Oximetry 01/01/19 20:41 Temperature Pulse Rate 57 L Pulse Rate [ Sitting] Pulse Rate [ Standing] Pulse Rate [ Supine] Respiratory 20 Rate Blood Pressure 108/65 Blood Pressure [Sitting] Blood Pressure [Standing] Blood Pressure [Supine] O2 Sat by Pulse 97 Oximetry Medical Decision Making - Medical Decision Making EKG shows sinus bradycardia at a rate of 57 bpm TX interval 220 QRS is 80 QT interval is 432 QTC is 420. Patient's EKG shows no ST segment elevation or depression patient has inverted T waves in V1 through V4. Chest x-ray shows no acute abnormality. CT of the head shows no acute abnormality. I gave the patient to a half liters of fluid has a blood pressure was in the high 80s and low 90s systolic. Spoke with Dr. Pope he agreed to admit the patient admitted the patient wrote admitting orders. Patient's white cells in the urine so I gave the patient Rocephin because I was concerned patient could have urinary tract infection. Cultures were done - Lab Data Result diagrams: 01/01/19 18:45 01/01/19 18:45 Lab Results 01/01/19 01/01/19 01/01/19 Range/Units 18:45 18:45 18:45 WBC 17.0 H (3.8-10.6) k/uL RBC 4.32 (3.80-5.40) m/uL Hgb 13.0 (11.4-16.0) gm/dL Hct 40.0 (34.0-46.0) % MCV 92.7 (80.0-100.0) fL MCH 30.1 (25.0-35.0) pg MCHC 32.5 (31.0-37.0) g/dL RDW 12.9 (11.5-15.5) % Plt Count 331 (150-450) k/uL Neutrophils % (Manual) 56 % Lymphocytes % (Manual) 40 % Monocytes % (Manual) 1 % Eosinophils % (Manual) 3 % Neutrophils # (Manual) 9.52 H (1.3-7.7) k/uL Lymphocytes # (Manual) 6.80 H (1.0-4.8) k/uL Monocytes # (Manual) 0.17 (0-1.0) k/uL Eosinophils # (Manual) 0.51 (0-0.7) k/uL Nucleated RBCs 0 (0-0) /100 WBC Manual Slide Review Performed PT (9.0-12.0) sec INR (<1.2) APTT (22.0-30.0) sec Sodium 143 (137-145) mmol/L Potassium 4.3 (3.5-5.1) mmol/L Chloride 112 H (98-107) mmol/L Carbon Dioxide 22 (22-30) mmol/L Anion Gap 9 mmol/L BUN 13 (7-17) mg/dL Creatinine 0.74 (0.52-1.04) mg/dL Est GFR (CKD-EPI)AfAm >90 (>60 ml/min/1.73 sqM) Est GFR (CKD-EPI)NonAf >90 (>60 ml/min/1.73 sqM) Glucose 92 (74-99) mg/dL Plasma Lactic Acid Jase 1.2 (0.7-2.0) mmol/L Calcium 9.5 (8.4-10.2) mg/dL Magnesium 2.2 (1.6-2.3) mg/dL Total Bilirubin 0.3 (0.2-1.3) mg/dL AST 29 (14-36) U/L ALT 38 (9-52) U/L Alkaline Phosphatase 100 (38-126) U/L Troponin I (0.000-0.034) ng/mL Total Protein 7.3 (6.3-8.2) g/dL Albumin 4.4 (3.5-5.0) g/dL Urine Color Urine Appearance (Clear) Urine pH (5.0-8.0) Ur Specific [place] (1.001-1.035) Urine Protein (Negative) Urine Glucose (UA) (Negative) Urine Ketones (Negative) Urine Blood (Negative) Urine Nitrite (Negative) Urine Bilirubin (Negative) Urine Urobilinogen (<2.0) mg/dL Ur Leukocyte Esterase (Negative) Urine RBC (0-5) /hpf Urine WBC (0-5) /hpf Ur Squamous Epith Cells (0-4) /hpf Amorphous Sediment (None) /hpf Urine Bacteria (None) /hpf Urine Mucus (None) /hpf [place] mmol/L 01/01/19 01/01/19 01/01/19 Range/Units 18:45 18:45 18:45 WBC (3.8-10.6) k/uL RBC (3.80-5.40) m/uL Hgb (11.4-16.0) gm/dL Hct (34.0-46.0) % MCV (80.0-100.0) fL MCH (25.0-35.0) pg MCHC (31.0-37.0) g/dL RDW (11.5-15.5) % Plt Count (150-450) k/uL Neutrophils % (Manual) % Lymphocytes % (Manual) % Monocytes % (Manual) % Eosinophils % (Manual) % Neutrophils # (Manual) (1.3-7.7) k/uL Lymphocytes # (Manual) (1.0-4.8) k/uL Monocytes # (Manual) (0-1.0) k/uL Eosinophils # (Manual) (0-0.7) k/uL Nucleated RBCs (0-0) /100 WBC Manual Slide Review PT 9.4 (9.0-12.0) sec INR 0.8 (<1.2) APTT 24.8 (22.0-30.0) sec Sodium (137-145) mmol/L Potassium (3.5-5.1) mmol/L Chloride (98-107) mmol/L Carbon Dioxide (22-30) mmol/L Anion Gap mmol/L BUN (7-17) mg/dL Creatinine (0.52-1.04) mg/dL Est GFR (CKD-EPI)AfAm (>60 ml/min/1.73 sqM) Est GFR (CKD-EPI)NonAf (>60 ml/min/1.73 sqM) Glucose (74-99) mg/dL Plasma Lactic Acid Jase (0.7-2.0) mmol/L Calcium (8.4-10.2) mg/dL Magnesium (1.6-2.3) mg/dL Total Bilirubin (0.2-1.3) mg/dL AST (14-36) U/L ALT (9-52) U/L Alkaline Phosphatase (38-126) U/L Troponin I <0.012 (0.000-0.034) ng/mL Total Protein (6.3-8.2) g/dL Albumin (3.5-5.0) g/dL Urine Color Urine Appearance (Clear) Urine pH (5.0-8.0) Ur Specific [place] (1.001-1.035) Urine Protein (Negative) Urine Glucose (UA) (Negative) Urine Ketones (Negative) Urine Blood (Negative) Urine Nitrite (Negative) Urine Bilirubin (Negative) Urine Urobilinogen (<2.0) mg/dL Ur Leukocyte Esterase (Negative) Urine RBC (0-5) /hpf Urine WBC (0-5) /hpf Ur Squamous Epith Cells (0-4) /hpf Amorphous Sediment (None) /hpf Urine Bacteria (None) /hpf Urine Mucus (None) /hpf [place] 0.5 mmol/L 01/01/19 Range/Units 19:15 WBC (3.8-10.6) k/uL RBC (3.80-5.40) m/uL Hgb (11.4-16.0) gm/dL Hct (34.0-46.0) % MCV (80.0-100.0) fL MCH (25.0-35.0) pg MCHC (31.0-37.0) g/dL RDW (11.5-15.5) % Plt Count (150-450) k/uL Neutrophils % (Manual) % Lymphocytes % (Manual) % Monocytes % (Manual) % Eosinophils % (Manual) % Neutrophils # (Manual) (1.3-7.7) k/uL Lymphocytes # (Manual) (1.0-4.8) k/uL Monocytes # (Manual) (0-1.0) k/uL Eosinophils # (Manual) (0-0.7) k/uL Nucleated RBCs (0-0) /100 WBC Manual Slide Review PT (9.0-12.0) sec INR (<1.2) APTT (22.0-30.0) sec Sodium (137-145) mmol/L Potassium (3.5-5.1) mmol/L Chloride (98-107) mmol/L Carbon Dioxide (22-30) mmol/L Anion Gap mmol/L BUN (7-17) mg/dL Creatinine (0.52-1.04) mg/dL Est GFR (CKD-EPI)AfAm (>60 ml/min/1.73 sqM) Est GFR (CKD-EPI)NonAf (>60 ml/min/1.73 sqM) Glucose (74-99) mg/dL Plasma Lactic Acid Jase (0.7-2.0) mmol/L Calcium (8.4-10.2) mg/dL Magnesium (1.6-2.3) mg/dL Total Bilirubin (0.2-1.3) mg/dL AST (14-36) U/L ALT (9-52) U/L Alkaline Phosphatase (38-126) U/L Troponin I (0.000-0.034) ng/mL Total Protein (6.3-8.2) g/dL Albumin (3.5-5.0) g/dL Urine Color Light Yellow Urine Appearance Cloudy H (Clear) Urine pH 6.0 (5.0-8.0) Ur Specific [place] 1.009 (1.001-1.035) Urine Protein Negative (Negative) Urine Glucose (UA) Negative (Negative) Urine Ketones Negative (Negative) Urine Blood Negative (Negative) Urine Nitrite Negative (Negative) Urine Bilirubin Negative (Negative) Urine Urobilinogen <2.0 (<2.0) mg/dL Ur Leukocyte Esterase Large H (Negative) Urine RBC 3 (0-5) /hpf Urine WBC 42 H (0-5) /hpf Ur Squamous Epith Cells 15 H (0-4) /hpf Amorphous Sediment Rare H (None) /hpf Urine Bacteria Occasional H (None) /hpf Urine Mucus Rare H (None) /hpf [place] mmol/L Disposition Clinical Impression: Near syncope, Urinary tract infection, Generalized weakness Disposition: ADMITTED IP TO THIS HOSP Referrals: Chaz Brown Jr, [Primary Care Provider] - 1-2 days Time of Disposition: 20:49
[2019-01-01] MEDS ORDERED: SODIUM CHLORIDE 0.9% 1,000 ML IV ONE ×2 (19:00→20:50)
[2019-01-01 19:05] LABS: ALT 38 U/L (9-52); AST 29 U/L (14-36); African American GFR (CKD) >90 (>60 ml/min/1.73 sqM); Albumin 4.4 g/dL (3.5-5.0); Alkaline Phosphatase 100 U/L (38-126); Anion Gap 9 mmol/L; Blood Urea Nitrogen 13 mg/dL (7-17); Calcium 9.5 mg/dL (8.4-10.2); Carbon Dioxide 22 mmol/L (22-30); Chloride 112 mmol/L (98-107); Glucose 92 mg/dL (74-99); Magnesium 2.2 mg/dL (1.6-2.3); Non-African American GFR(CKD) >90 (>60 ml/min/1.73 sqM); Potassium 4.3 mmol/L (3.5-5.1); Sodium 143 mmol/L (137-145); Total Bilirubin 0.3 mg/dL (0.2-1.3); Total Protein 7.3 g/dL (6.3-8.2)
[2019-01-01 19:10] LABS: MCH 30.1 pg (25.0-35.0); MCHC 32.5 g/dL (31.0-37.0); MCV 92.7 fL (80.0-100.0); Mean Platelet Volume 6.2; Platelet Count 331 k/uL (150-450); RBC 4.32 m/uL (3.80-5.40); RDW 12.9 % (11.5-15.5)
--- NOTE | 2019-01-01 19:26 | XR ---
EXAMINATION TYPE: XR chest 2V DATE OF EXAM: 01/01/2019 COMPARISON: 10/27/2015 HISTORY: Weakness TECHNIQUE: Frontal and lateral views of the chest are obtained. FINDINGS: Heart and mediastinum are normal. Lungs are clear. Diaphragm is normal. Bony thorax appear s normal. IMPRESSION: Normal chest. No change.
[2019-01-01 19:42] LABS: INR 0.8 (<1.2); Prothrombin Time 9.4 sec (9.0-12.0)
[2019-01-01 19:43] LABS: Partial Thromboplastin Time 24.8 sec (22.0-30.0)
[2019-01-01 19:52] LABS: Bacteria,Urine Occasional /hpf; RBC,Urine 3 /hpf (0-5); Squamous Epithelial Cell,Urine 15 /hpf (0-4); WBC,Urine 42 /hpf (0-5)
[2019-01-01] MEDS ORDERED: ACETAMINOPHEN TAB 500 MG TAB PO STA (20:07)
[2019-01-01 20:10] LABS: Eosinophils # (M) 0.51 k/uL (0-0.7); Monocytes # (M) 0.17 k/uL (0-1.0); Neutrophils # (M) 9.52 k/uL (1.3-7.7); Neutrophils % (M) 56 %; Nucleated Red Blood Cells 0 /100 WBC (0-0); Total Cells Counted 100
[2019-01-01 20:14] LABS: Amorphous Sediment,Urine Rare /hpf; Appearance,Urine Cloudy (Clear); Bilirubin,Urine Negative (Negative); Blood,Urine Negative (Negative); Color,Urine Light Yellow; Glucose,Urine (UA) Negative (Negative); Ketones,Urine Negative (Negative); Leukocyte Esterase,Urine Large (Negative); Mucus,Urine Rare /hpf; Nitrite,Urine Negative (Negative); Protein,Urine Negative (Negative); Specific Gravity,Urine 1.009 (1.001-1.035); Urobilinogen,Urine <2.0 mg/dL (<2.0)
[2019-01-01] MEDS ORDERED: cefTRIAXone IN SWFI 1,000 MG/10 ML SYRINGE IVP STA (20:33)
--- NOTE | 2019-01-01 20:34 | CT ---
EXAMINATION TYPE: CT brain wo con DATE OF EXAM: 01/01/2019 COMPARISON: 08/28/2016 HISTORY: Dizziness, headache. Pt has hx of closed head injury CT DLP: 1123.4 mGycm Automated exposure control for dose reduction was used. FINDINGS: Ventricles have normal size. There is no mass effect nor midline shift. There is no sign of intracran ial hemorrhage. There is no sign of cerebral edema. Calvarium is intact. Skull base appears intact. IMPRESSION: NEGATIVE CT SCAN OF THE BRAIN. NO CHANGE.
[2019-01-01 22:12] VITALS: BMI 28.3
[2019-01-01] MEDS ORDERED: LITHIUM CARBONATE 300 MG CAP PO SCH (22:30)
[2019-01-01] MEDS ORDERED: MIRTAZAPINE 15 MG TAB PO SCH (22:30)
[2019-01-01] MEDS ORDERED: MONTELUKAST 10 MG TAB PO SCH (22:30)
[2019-01-01] MEDS ORDERED: clonazePAM 1 MG TAB PO SCH (22:30)
[2019-01-01] MEDS ORDERED: LITHIUM CARBONATE 150 MG CAP PO SCH (22:30)
[2019-01-01] MEDS ORDERED: PRAZOSIN 1 MG CAP PO SCH (22:30)
[2019-01-01] MEDS ORDERED: TOPIRAMATE 100 MG TAB PO SCH (22:30)
[2019-01-01] MEDS ORDERED: OLANZapine 5 MG TAB PO SCH (22:30)
[2019-01-01] MEDS: IBUPROFEN 600 MG TAB PO SCH (22:43)
[2019-01-01] MEDS: tiZANidine 4 MG TAB PO SCH (22:43)
[2019-01-02] MEDS ORDERED: ACETAMINOPHEN TAB 325 MG TAB PO PRN (04:33)
[2019-01-02 04:46] VITALS: RESP 18
[2019-01-02 07:29] VITALS: BP 112/76; PULSE 76; TEMP 97.5
[2019-01-02] MEDS: IBUPROFEN 600 MG TAB PO SCH (08:16)
[2019-01-02] MEDS: tiZANidine 4 MG TAB PO SCH (08:17)
[2019-01-02] MEDS ORDERED: MULTIVITAMINS, THERA 1 EACH TAB PO SCH (09:00)
[2019-01-02] MEDS ORDERED: CARIPRAZINE HCL 6 MG PO SCH (09:00)
[2019-01-02] MEDS ORDERED: ATORVASTATIN 20 MG TAB PO SCH (09:00)
--- NOTE | 2019-01-18 11:37 | P.HPIM ---
History of Present Illness H&P Date: 01/18/19 Chief Complaint: Patient signed out AMA before being seen Past Medical History Past Medical History: COPD, Hyperlipidemia Additional Past Medical History / Comment(s): back pain, traumatic brain injury R/T a fall down a flight of stairs, chronic hip pain History of Any Multi-Drug Resistant Organisms: None Reported Past Surgical History: Appendectomy, Bladder Surgery, Breast Surgery, Section, Ear Surgery, Hysterectomy, Orthopedic Surgery Additional Past Surgical History / Comment(s): polyps from colon/ exploratory, neck surgery, right shoulder surgery. Past Anesthesia/Blood Transfusion Reactions: No Reported Reaction Smoking Status: Former smoker - Past Family History Mother Family Medical History: Diabetes Mellitus Father Family Medical History: COPD Medications and Allergies Home Medications Medication Instructions Recorded Confirmed Type [place] Carbonate 300 mg PO HS 08/28/16 01/01/19 History Atorvastatin [Lipitor] 20 mg PO DAILY 07/24/18 01/01/19 History Ibuprofen 600 mg PO TID #20 tablet 07/24/18 01/01/19 Rx Prazosin HCl 4 mg PO HS 07/24/18 01/01/19 History Topiramate [Topamax] 100 mg PO HS 07/24/18 01/01/19 History Cariprazine HCl [Vraylar] 6 mg PO DAILY 11/15/18 01/01/19 History Multivitamins, Thera [Multivitamin 1 tab PO DAILY 11/15/18 01/01/19 History (formulary)] clonazePAM [KlonoPIN] 1 mg PO HS 11/15/18 01/01/[address] [place] [address] Carbonate 150 mg PO HS 01/01/19 01/01/19 History Mirtazapine 30 mg PO HS 01/01/19 01/01/19 History Montelukast [Singulair] 10 mg PO HS 01/01/19 01/01/19 History OLANZapine [ZyPREXA] 5 mg PO HS 01/01/19 01/01/19 History tiZANidine HCL [Zanaflex] 4 mg PO TID 01/01/19 01/01/19 History Allergies Allergy/AdvReac Type Severity Reaction Status Date / Time pregabalin [From Lyrica] Allergy Unknown Itching/Hola Verified 01/01/19 21:55 sea/Vomitin g/Headache morphine Allergy Itching/Hola Verified 01/01/19 21:55 sea/Vomitin g/Headache Physical Exam Osteopathic Statement: *. No significant issues noted on an osteopathic structural exam other than those noted in the History and Physical/Consult. Results CBC & Chem 7: 01/01/19 18:45 01/01/19 18:45 Thrombosis Risk Factor Assmnt - Choose All That Apply Each Factor Represents 1 point: Age 41-60 years Thrombosis Risk Factor Assessment Total Risk Factor Score: 1 Thrombosis Risk Factor Assessment Level: Low Risk
== END 2019-01-02 11:30 | disposition left against medical advice (07) ==
LOC: EC 17:30 → 1SOBS 20:51
PROVIDERS: ADMIT Family Medicine; ATTEND Family Medicine
DX: R55 Syncope and collapse (principal); R53.1 Weakness; N39.0 Urinary tract infection, site not specified; J44.9 Chronic obstructive pulmonary disease, unspecified; E78.5 Hyperlipidemia, unspecified; G89.29 Other chronic pain; M25.559 Pain in unspecified hip; M54.9 Dorsalgia, unspecified; F41.9 Anxiety disorder, unspecified; F31.9 Bipolar disorder, unspecified; Z88.5 Allergy status to narcotic agent; Z88.8 Allergy status to other drugs, medicaments and biological substances; Z87.891 Personal history of nicotine dependence; Z87.828 Personal history of other (healed) physical injury and trauma; Z79.899 Other long term (current) drug therapy; Z86.010 Personal history of colon polyps; Z83.3 Family history of diabetes mellitus; Z82.5 Family history of asthma and other chronic lower respiratory diseases; Z53.29 Procedure and treatment not carried out because of patient's decision for other reasons
CPT/HCPCS: 96361; 96374; 99285; 36415; 93005; 80053; 83605; 80178; 83735; 84484; 85025; 85610; 85730; 81001; 87040; 71046; 70450; G0378 ×2; J0696

== ENCOUNTER → 2019-01-03 | Outpatient (CLI) | payer MEDICARE, OTHER ==
--- NOTE | 2019-01-03 10:15 | MR ---
EXAMINATION TYPE: MR lumbar spine wo con DATE OF EXAM: 01/03/2019 9:03 AM COMPARISON: NONE HISTORY: Low back pain Multiplanar, MultiSpin echo imaging of the lumbar spine was performed. There is a transitional lumbar vertebral segment with partial sacralization of L5 suspected. L1-L2: Normal disc appearance without desiccation. No herniation, protrusion or disc bulging. No ca nal stenosis is present. Foramina are patent bilaterally. L2-L3: There is evidence of disc desiccation. Mild posterior disc bulge. No herniation protrusion or central stenosis. No significant foraminal encroachment. L3-L4: There is evidence of disc desiccation. Mild posterior disc bulge. No herniation protrusion or central stenosis. No significant foraminal encroachment. L4-L5: There is evidence of disc desiccation. Mild posterior disc bulge. No herniation protrusion or central stenosis. No significant foraminal encroachment. L5-S1: There is evidence of disc desiccation. Mild posterior disc bulge. No herniation protrusion or central stenosis. No significant foraminal encroachment. Lumbar segments are intact. No paraspinal masses are identified. Conus medullaris has a normal appe arance. IMPRESSION: 1. Multilevel degenerative disc disease and disc bulging without herniation or central stenosis.
== END ==
LOC: RADMRIMAIN 08:33
PROVIDERS: ATTEND Family Medicine
DX: M51.26 Other intervertebral disc displacement, lumbar region (principal); M51.36 Other intervertebral disc degeneration, lumbar region
CPT/HCPCS: 72148

== ENCOUNTER → 2019-03-02 | Outpatient (CLI) | payer MEDICARE, OTHER ==
[2019-03-02 13:00] VITALS: PULSE 87; RESP 16
--- NOTE | 2019-03-03 14:39 | P.PAINCN ---
History of Present Illness - Reason for Consult Consult date: 03/02/19 - History of Present Illness This is a 53-year-old patient referred by Dr. Maria with a chief complaint of chronic pain in low back with radiation to right buttock, she also has a secondary pain in the right hip and right groin. This started in 2014, when she fell down a flight of stairs. She reports that she suffered injuries from this fall including shoulder fracture as well as brain damage. 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 Pain is rated as 5- 8/10, described as sharp, stabbing. She has been to physical therapy, last done a few months ago, with no benefit. Pain is worse with sitting, bending, housework and better with heat, medications. Patient has been taking medications from primary care physician including tizanidine and ibuprofen with some relief. Patient denies adverse drug effects from medications. Patient also denies new-onset weakness, bowel/bladder incontinence, or any other signs or symptoms of cauda equina syndrome. There are no signs of acute intoxication, and no indications of medication diversion or overuse. She denies incontinence, however since her fall, she has lost the urge to urinate. Patient has not had surgery. Patient has not had injections previously. Patient has had physical therapy recently, with no significant benefit. In addition to above, 13-point review of systems is also negative for chest pain, shortness of breath, changes in vision, changes in hearing, new onset weakness, abdominal pain, diarrhea, extreme fatigue, malaise, fever, skin changes, homicidal or suicidal ideation, or bowel or bladder incontinence. Physical exam: Vital Signs: Reviewed in EMR GENERAL: Well appearing, in no acute distress PSYCH: Mood and affect is appropriate. Awake, alert, and oriented SKIN: Skin color, texture, turgor normal, no rashes or lesions HEENT: Normocephalic, atraumatic. EOM intact CV: No pedal edema RESP: Respirations are unlabored, no audible wheezing GI: Abdomen non-distended MUSCULOSKELETAL: Bilateral lower extremity strength is normal and symmetric. No atrophy or tone abnormalities are noted. Lumbar spine: Straight leg raising in the sitting position is negative for radicular pain. Tenderness to palpation over the lumbar spine and paraspinous muscles, worse on the right. Positive for pain with facet loading and back extension/rotation. Buttocks: No pain to palpation over the PSIS, Sonia test is negative. Tenderness to palpation along the right greater trochanter bursa. FADIR test is positive on the right Extremities: Peripheral joint ROM is full and pain free without obvious instability or laxity in all four extremities. No edema or skin discolorations noted. Gait: Gait is normal NEUR: Bilateral upper and lower extremity coordination and muscle stretch reflexes are physiologic and symmetric. Negative clonus. No loss of sensation is noted. Cranial nerves are grossly intact. Imaging: MRI lumbar spine done at [facility] on 01/03/2019 shows multilevel degenerative disc disease with disc bulging without central stenosis. Assessment: 1. Degenerative disc disease lumbar area 2. Lumbar spondylosis 3. Possible right hip osteoarthritis Plan: 1. Explanation: Diagnoses, prognoses, and multiple treatment options including but not limited to physical therapy, interventional therapies, medication management were discussed with the patient and all questions were answered to the patient's satisfaction. 2. Investigations: MRI lumbar spine reviewed, in the future, if patient continues to complain of right hip pain, we will plan on obtaining hip x-rays 3. Counseling: The patient was counseled on the importance of continued EXERCISE. She was provided with an exercise handout for low back and core stretching and strengthening exercises 4. Procedures: We will schedule bilateral lumbar medial branch blocks at L3, L4, L5 2, if patient benefits from this, she will likely benefit from radiofrequency ablation 5. Consultations: None 6. Medications: No changes 7. Disposition: For above-mentioned procedure 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-headaches & some memory loss, chronic right hip pain History of Any Multi-Drug Resistant Organisms: None Reported Past Surgical History: Appendectomy, Bladder Surgery, Breast Surgery, Section, Ear Surgery, Hysterectomy, Orthopedic Surgery Additional Past Surgical History / Comment(s): colonoscopy, neck surgery, right shoulder surgery, breast biopsies x3 Past Anesthesia/Blood Transfusion Reactions: No Reported Reaction Smoking Status: Former smoker - Past Family History Mother Family Medical History: Diabetes Mellitus Father Family Medical History: COPD Medications and Allergies Home Medications Medication Instructions Recorded Confirmed Type [place] Carbonate 300 mg PO HS 08/28/16 03/02/19 History Atorvastatin [Lipitor] 20 mg PO DAILY 07/24/18 03/02/19 History Ibuprofen 600 mg PO TID #20 tablet 07/24/18 03/02/19 Rx Prazosin HCl 4 mg PO HS 07/24/18 03/02/19 History Topiramate [Topamax] 100 mg PO HS 07/24/18 03/02/19 History Cariprazine HCl [Vraylar] 6 mg PO DAILY 11/15/18 03/02/19 History Multivitamins, Thera [Multivitamin 1 tab PO DAILY 11/15/18 03/02/19 History (formulary)] clonazePAM [KlonoPIN] 1 mg PO HS 11/15/18 03/02/19 History [place] Carbonate 150 mg PO HS 01/01/19 03/02/19 History Mirtazapine 30 mg PO HS 01/01/19 03/02/19 History Montelukast [Singulair] 10 mg PO HS 01/01/19 03/02/19 History OLANZapine [ZyPREXA] 5 mg PO HS 01/01/19 03/02/19 History tiZANidine HCL [Zanaflex] 4 mg PO TID 01/01/19 03/02/19 History Allergies Allergy/AdvReac Type Severity Reaction Status Date / Time pregabalin [From Lyrica] Allergy Unknown Itching/Hola Verified 02/26/19 12:01 sea/Vomitin g/Headache morphine Allergy Itching/Hola Verified 02/26/19 12:01 sea/Vomitin g/Headache PQRS Measure Charge Sheet Measure #130: Documentation of Current Meds in Medical Chart: Patient's medications documented in chart Measure #226: Tobacco Use: Screen & Cessation Intervention: Pt not a tobacco user Measure #111: Pneumonia Vaccination: Pneumococcal vaccine NOT administered or previously given Measure #47: Advance Care Plan: Advance care planning discussed & documented, pt chose/unable to give Measure #412: Opioid Treatment Agreement: No documentation of signed opioid treatment agreement Measure #408: Opioid Therapy Follow-up Evaluation: Patient had NO f/u eval minimum every 3 months during opioid therapy Measure #317: Preventitive Care & Scrn High Bld Press & F/U: Normal blood pressure, f/u not required Measure #128: Body Mass Index (BMI) Screening & Follow-up: BMI documented ABOVE normal parameters - f/u documented Measure #131: Pain Assessment & Follow-up: Pain positive & plan documented, Follow-up scheduled Measure #431: Unhealthy Alcohol Use Preventative Care & Scrn: Patient not identified as an unhealthy alcohol user PQRS Narrative: Smoking Status Former smoker Pain Intensity [Lower Back] 8 Scale Used Numeric (1 - 10) Hx Alcohol Use (MH) No Home Medications: Ambulatory Orders [place] Carbonate 300 mg PO HS 08/28/16 Atorvastatin [Lipitor] 20 mg PO DAILY 07/24/18 Ibuprofen 600 mg PO TID #20 tablet 07/24/18 Prazosin HCl 4 mg PO HS 07/24/18 Topiramate [Topamax] 100 mg PO HS 07/24/18 Cariprazine HCl [Vraylar] 6 mg PO DAILY 11/15/18 Multivitamins, Thera [Multivitamin (formulary)] 1 tab PO DAILY 11/15/18 clonazePAM [KlonoPIN] 1 mg PO HS 11/15/18 [place] Carbonate 150 mg PO HS 01/01/19 Mirtazapine 30 mg PO HS 01/01/19 Montelukast [Singulair] 10 mg PO HS 01/01/19 OLANZapine [ZyPREXA] 5 mg PO HS 01/01/19 tiZANidine HCL [Zanaflex] 4 mg PO TID 01/01/19
== END | disposition home or self-care (01) ==
LOC: PNWHC3 12:11
PROVIDERS: ATTEND Anesthesiology
DX: G89.29 Other chronic pain (principal); M51.36 Other intervertebral disc degeneration, lumbar region; M47.816 Spondylosis without myelopathy or radiculopathy, lumbar region; M25.551 Pain in right hip; Z87.891 Personal history of nicotine dependence; Z79.1 Long term (current) use of non-steroidal anti-inflammatories (NSAID); Z79.899 Other long term (current) drug therapy; Z88.5 Allergy status to narcotic agent; Z88.8 Allergy status to other drugs, medicaments and biological substances
CPT/HCPCS: 99211

== ENCOUNTER → 2019-03-18 | Day surgery (SDC) | payer MEDICARE, OTHER ==
[2019-03-16 14:46] VITALS: BMI 29.2
[~2019-03-18] MED LIST changes: -DEXAMETHASONE SOD PHOSPHATE 10 MG/ML 1 ML VIAL IV ONE; -HEPARIN SODIUM,PORCINE 5,000 UNIT/ML 1 ML VIAL SQ ONE; +IV FLUID CONTINUATION 1,000 ML IV ONE; +LIDOCAINE 1% 20 ML VIAL (10MG/ML) FOR IV START INTRADERMA ONE; -LIDOCAINE 1% 20 ML VIAL (10MG/ML) FOR IV START INTRADERMA PRN; -MIDAZOLAM 2 MG/2 ML VIAL IV PRN; +MIDAZOLAM 2 MG/2 ML VIAL ONE; -ONDANSETRON 4 MG/2 ML VIAL IVP ONE; +ROPIVACAINE 5MG/ML 20ML VIAL ONE; -SCOPOLAMINE 1.5MG/72HR PATCH TRANSDERM ONE; -ceFAZolin 2 GM in SODIUM CHLORIDE 0.9% 100 ML IVPB ONE; +fentaNYL (PF) 50 MCG/ML 2 ML AMP ONE; +methylPREDNISolone ACETATE 40 MG/ML 1 ML VIAL ONE
[2019-03-18 09:34] VITALS: RESP 18; TEMP 98.5
--- NOTE | 2019-03-18 10:25 | P.PCN ---
Date of Procedure: 03/18/19 Procedure(s) Performed: PREOPERATIVE DIAGNOSIS : 1- Lumbar spondylosis with Facet Arthropathy without myelopathy . 2- Lumber degenerative disc disease POSTOPERATIVE DIAGNOSIS: 1- Lumbar spondylosis with Facet Arthropathy without myelopathy . 2- Lumber degenerative disc disease PROCEDURE: Diagnostic bilateral L3 , L4 , and L5 medial branch block under fluoroscopy guidance(fluoroscopy images available in the radiology Department ) ( To target the facet joint between L4-5 , and L5-S1 ) ANESTHESIA: moderate sedation with intravenous Versed 2 mg and Fentanyl 50 mcg. EBL: Minimal COMPLICATION: None. IV FLUIDS: 100 mL of normal saline. PROCEDURE INDICATION: Chronic low back pain secondary to Facet arthropathy unresponsive to conservative treatment. PROCEDURE DESCRIPTION: the patient was seen and identified in the preop holding area , risks and benefits and possible complications of the procedure and alternative were discussed with the patient, and the patient agreed to proceed with the procedure and signed the consent IV was started and vital signs monitored during the procedure and fluoroscopy was used to maximize the benefit and accuracy of the needle placement, and sedation was given to decrease patient anxiety, patient was taken to the procedure room and placed in prone position vital signs monitored in the back prepped with chlorhexidine X3 then under strict sterile technique using a right oblique fluoroscopy ,the junction of the transverse process and the superior articulating process of the right L3 , L4 , and L5 vertebra which corresponding to the fluoroscopy image of the eye of the Osmin dog on the block side for the medial branches and subsequently , after local infiltration of skin and subcu tissuies with Ropivacaine 0.5 % , one mL at each level ,then 22-gauge Quincke-type needles , 3 needle was used , each one of them placed at the junction of the base of the transverse process and the superior articular process at the appropriate level, and the needle was advanced until the periosteum contacted, needle placement confirmed with AP oblique and lateral view and after appropriate needle placement confirmed, and after negative aspiration for heme and CSF and there was no paresthesia 1-1/2 mL of Ropivacaine 0.5% mixed with 20 mg Depo-Medrol , then half mL injected at each level after negative aspiration the needle subsequently removed and the same procedure repeated for the left side at left side at L3 , L4 and L5 levels. At the end of the procedure and the needles removed and a bandage applied after the skin was cleaned the cleaning solution patient taken to recovery room in stable condition and monitors in the recovery room for 20-30 minutes and discharged home in stable condition after discharge criteria met and patient will follow up with the pain clinic in 2-4 weeks
[2019-03-18 10:51] VITALS: BP 122/67; PULSE 63
--- NOTE | 2019-03-18 12:00 | FL ---
EXAMINATION TYPE: FL guided pain mgmt statistic DATE OF EXAM: 03/18/2019 CLINICAL HISTORY: Low back pain. TECHNIQUE: Fluoroscopy. COMPARISON: None. FINDINGS: Fluoroscopic guidance was provided during pain relief procedure performed by Dr. Ojeda . A total of 12 seconds of fluoroscopic time was utilized during the procedure and for spot images a re acquired. Images acquired shows needle localization at multiple levels in the lumbar spine. IMPRESSION: As Above.
== END ==
LOC: ORPAIN 09:02
PROVIDERS: ATTEND Specialist
DX: G89.29 Other chronic pain (principal); M51.36 Other intervertebral disc degeneration, lumbar region; M47.816 Spondylosis without myelopathy or radiculopathy, lumbar region; Z88.5 Allergy status to narcotic agent; Z88.8 Allergy status to other drugs, medicaments and biological substances
CPT/HCPCS: 64493; 64494; J2250; J1030; J3010; J2795; 99152

== ENCOUNTER 2019-04-15 08:59 | Day surgery (SDC) | payer MEDICARE, OTHER ==
[2019-04-13 13:27] VITALS: BMI 29.2
[~2019-04-15 08:59] MED LIST changes: -IV FLUID CONTINUATION 1,000 ML IV ONE; -LACTATED RINGERS 1,000 ML IV SCH; -LIDOCAINE 1% 20 ML VIAL (10MG/ML) FOR IV START INTRADERMA ONE; -fentaNYL (PF) 50 MCG/ML 2 ML AMP ONE; -methylPREDNISolone ACETATE 40 MG/ML 1 ML VIAL ONE
[2019-04-15 09:51] VITALS: TEMP 98.4
[2019-04-15] MEDS ORDERED: LIDOCAINE 1% 20 ML VIAL (10MG/ML) FOR IV START INTRADERMA ONE (09:58)
[2019-04-15] MEDS ORDERED: LACTATED RINGERS 1,000 ML IV ONE (09:58)
--- NOTE | 2019-04-15 10:15 | P.PCN ---
Date of Procedure: 04/15/19 Description of Procedure: Procedure: BILATERAL L3-4, L4-5, L5-S1 Diagnosis: Lumbar spondylosis without myelopathy Anesthesia: Local and 2 mg of IV Versed Imaging: Fluoroscopy was used, images where saved to the medical record The patient was seen and examined in the [facility]. Procedure risks and benefits were fully reviewed with the patient. The patient understands this is a diagnostic if local only is used, as will be the case today. The goal of the procedure is to inject medication onto the medial branch or small nerves that innervate the facet joints. In this way, we can hopefully identify which of these joints, if any, may be contributing to their pain. Informed consent for procedure was obtained. The patient was taken into the office fluoroscopy procedure room and placed prone on the table. A pillow was placed under the abdomen to reduce lumbar lordosis. Vital signs were closely monitored during the procedure. The skin over the area was prepped with Betadine X 3 and draped in usual sterile manner. Sterile technique was observed throughout procedure. Under biplanar fluoroscopic guidance, the target injection area of the L4, L5, Sacral Ala were targeted. A 25 gauge 31/2 inch spinal needle was then placed at the most medial and superior aspect of the transverse process near the "eye of the Osmin dog". Aspiration for blood was negative. 1 cc of 0.5% Ropivacaine was injected into the targeted areas separately. [place] were withdrawn intact. No complications were noted during the procedure. The patient tolerated the procedure well. The patient was placed in supine position and transferred to the recovery area for observation and remained stable until discharged home. Home discharge instructions were given to the patient by the staff. The patient will schedule a follow up as directed.
[2019-04-15] MEDS ORDERED: IV FLUID CONTINUATION 1,000 ML IV ONE (10:40)
[2019-04-15 10:58] VITALS: BP 122/77; PULSE 70; RESP 18
--- NOTE | 2019-04-15 13:27 | FL ---
Fluoroscopy HISTORY: Pain 8 seconds fluoroscopy time supplied to the referring clinician. 5 intraoperative C-arm images docume nt the procedure. See dictated report from anesthesia.
== END 2019-04-15 11:05 | disposition home or self-care (01) ==
LOC: ORPAIN 08:59
PROVIDERS: ATTEND Hospitalist
DX: M47.816 Spondylosis without myelopathy or radiculopathy, lumbar region (principal); Z90.710 Acquired absence of both cervix and uterus; Z88.5 Allergy status to narcotic agent; Z88.8 Allergy status to other drugs, medicaments and biological substances
CPT/HCPCS: 64493; 64494; 64495; J2250; J2795

== ENCOUNTER → 2019-04-29 | Outpatient (CLI) | payer MEDICARE, OTHER ==
[2019-04-29 12:10] VITALS: BP 120/85; PULSE 95; RESP 20
--- NOTE | 2019-04-29 12:32 | P.PAINPG ---
Subjective Progress Note Date: 04/29/19 Amira is a 53-year-old female presenting today for follow-up after having bilateral medial branch blocks of the lumbar spine. She reports excellent relief for about 2 days. She reports in the first day she had absolutely 0 pain throughout the entire day. She felt that the injection helped significantly would like to move forward with radiofrequency ablation. At this point she feels her back pain is about the same as it normally has been in the past. There have been no changes to her exam or her review of systems. She denies any new bowel or bladder incontinence, lower extremity numbness tingling or weakness. Objective - Vital Signs Vital signs: Vital Signs Temp Pulse 95 04/29/19 12:06 Resp 20 04/29/19 12:06 BP 120/85 04/29/19 12:06 Pulse Ox 97 04/29/19 12:06 - Exam General: Awake and alert oriented 3 no distress Respiratory exam: No audible wheezing no accessory muscle usage Cardiovascular exam: regular rate, palpable bilateral pulses, no lower extremity edema Abdominal exam: No distention nontender to palpation Cervical spine: Normal alignment, Spurling's negative, facet loading negative, Wage Conciliator strength is 5/5, fonseca negative Lumbar spine: Loss of lumbar lordosis, normal alignment, tender to palpation over bilateral paraspinal muscles, facet loading is positive bilaterally. Straight leg raise is negative. Limited range of motion due to pain with flexion, extension and side bending. Sacroiliac joints: Nontender to palpation, MORALES is negative, [place] negative Neuro exam: Normal sensation in bilateral upper extremities, deep tendon reflexes are 2+ bilateral upper extremities. Normal sensation in bilateral lower extremities. Deep tendon reflexes are 2+ in lower extremities Psych exam: Cooperative, appropriate mood Assessment and Plan Assessment: #1 lumbar spondylosis without myelopathy #2 degenerative disc disease Plan: We discussed the risks benefits and alternatives to moving forward with radiofrequency ablation of the lumbar spine. She reports that she has done some research about the procedure and I have answered all questions she might have. We will schedule her for right-sided radio frequency ablation done under sedation. We'll move forward with the left side in 2 weeks after that Time with Patient: Less than 30 PQRS Measure Charge Sheet Measure #130: Documentation of Current Meds in Medical Chart: Patient's medications documented in chart Measure #226: Tobacco Use: Screen & Cessation Intervention: Pt screened for tobacco use AND intervention given Measure #111: Pneumonia Vaccination: Pneumococcal vaccine administered or previously received Measure #47: Advance Care Plan: Advance care planning discussed & documented, plan or surrogate given Measure #412: Opioid Treatment Agreement: Documented signed opioid trtmnt agreemnt min once during opioid trtmnt Measure #408: Opioid Therapy Follow-up Evaluation: Patient had f/u eval minimum every 3 months during opioid therapy Measure #317: Preventitive Care & Scrn High Bld Press & F/U: Normal blood pressure, f/u not required Measure #128: Body Mass Index (BMI) Screening & Follow-up: BMI documented within normal parameters Measure #131: Pain Assessment & Follow-up: Pain positive & plan documented Measure #431: Unhealthy Alcohol Use Preventative Care & Scrn: Patient not identified as an unhealthy alcohol user PQRS Narrative: Smoking Status Former smoker Blood Pressure 120/85 Pain Intensity [Back] 8 Scale Used Numeric (1 - 10) Hx Alcohol Use (MH) No Home Medications: Ambulatory Orders [place] Carbonate 300 mg PO HS 08/28/16 Atorvastatin [Lipitor] 20 mg PO DAILY 07/24/18 Ibuprofen 600 mg PO TID #20 tablet 07/24/18 Prazosin HCl 5 mg PO HS 07/24/18 Multivitamins, Thera [Multivitamin (formulary)] 1 tab PO DAILY 11/15/18 clonazePAM [KlonoPIN] 1 mg PO HS 11/15/18 Mirtazapine 30 mg PO HS 01/01/19 Montelukast [Singulair] 10 mg PO HS 01/01/19 OLANZapine [ZyPREXA] 5 mg PO HS 01/01/19 Cariprazine HCl [Vraylar] 4.5 mg PO DAILY 04/13/19 Nicotine 21Mg/24Hr Patch [Habitrol] 1 each TRANSDERM DAILY 04/13/19 Controlled Substance Measures - Controlled Substance Measures Is patient prescribed a controlled substance at discharge?: No
== END | disposition home or self-care (01) ==
LOC: PNWHC3 11:41
PROVIDERS: ATTEND Hospitalist
DX: M51.36 Other intervertebral disc degeneration, lumbar region (principal); M47.816 Spondylosis without myelopathy or radiculopathy, lumbar region; Z87.891 Personal history of nicotine dependence; Z79.1 Long term (current) use of non-steroidal anti-inflammatories (NSAID); Z79.899 Other long term (current) drug therapy
CPT/HCPCS: 99211

== ENCOUNTER → 2019-08-04 | Outpatient (CLI) | payer MEDICARE, OTHER | END | disposition home or self-care (01) | LOC: LABWHC1 14:09 | PROVIDERS: ATTEND Family Medicine | DX: Z11.59 Encounter for screening for other viral diseases (principal) ==

== ENCOUNTER → 2019-08-06 | Day surgery (SDC) | payer MEDICARE, OTHER ==
[2019-08-05 10:43] VITALS: BMI 29.2
[~2019-08-06] MED LIST changes: +IV FLUID CONTINUATION 450 ML IV ONE; +LACTATED RINGERS 1,000 ML IV ONE; +LACTATED RINGERS 1,000 ML IV SCH; +LIDOCAINE 1% (10MG/ML) FOR IV START INTRADERMA ONE; +LIDOCAINE 1% INJ 10MG/ML (20 ML MDV) ONE; +LIDOCAINE 4% (PF) 5 ML AMP ONE; +TRIAMCINOLONE ACETONIDE 40 MG/ML 1 ML VIAL ONE; +fentaNYL (PF) 50 MCG/ML 2 ML AMP ONE
[2019-08-06 10:06] VITALS: RESP 18; TEMP 97.8
[2019-08-06 11:42] VITALS: BP 107/71; PULSE 78
--- NOTE | 2019-08-06 11:44 | FL ---
EXAMINATION TYPE: FL guided pain mgmt statistic DATE OF EXAM: 08/06/2019 HISTORY: Fluoroscopy time 1 minute and 5 seconds of fluoroscopy provided. IMPRESSION: 1. Fluoroscopy time.
--- NOTE | 2019-08-06 12:26 | P.PCN ---
Date of Procedure: 08/06/19 Description of Procedure: Procedure(s) Performed: PREOPERATIVE DIAGNOSIS: 1. Lumbar Spondylosis with Facet Arthropathy without myelopathy. 2-. Lumber degenerative disc disease POSTOPERATIVE DIAGNOSIS: 1. Lumbar Spondylosis with Facet Arthropathy without myelopathy. 2-. Lumber degenerative disc disease PROCEDURES: Right Radiofrequency thermocoagulation, L4-L5, and L5-S1 (2 Facet Joints) with fluoroscopic guidance SURGEON: Dale Lioa M.D. ANESTHESIA: Moderate sedation with intravenous versed 2 mg and fentanyl 100 mcg and local infiltration with lidocaine 1% 4 ml EBL: Minimal PROCEDURE INDICATION: The patient with low back pain secondary to lumbar facet arthropathy who had more than 50% relief of her pain with previous diagnostic lumbar medial branch block with Ropivacaine. PROCEDURE DESCRIPTION / TECHNIQUE: The patient was seen and identified in the preoperative area. Risks, benefits, complications, including but not limited to risk of infection ,bleeding , allergic reactions to the medications and no complete pain releife , and alternatives were discussed with the patient, the patient agreed to proceed with the procedure and signed the consent. IV was started. Vital signs remained stable throughout the procedure. Patient was taken to the OR and time out was completed. The patient was placed in the prone position on the procedure table. The lumber area was prepped and draped in the usual sterile fashion. . Vital signs were closely monitored during the procedure .IV sedation was used during the procedure to decrease patients anxiety. Using AP and then oblique fluoroscopy 10-15 degrees to the RIGHT, the ``eye of the Osmin dog corresponding to the connection between the superior and transverse articular processes of RIGHT L4, L5, and Sacral Ala were identified, marked, and localized with 1% lidocaine. Subsequently, a 18 [id number] radiofrequency cannula with a 10-mm active tip was advanced guided by fluoroscopy to each of the ``eyes of the Osmin dog . C-arm was the obliqued 30 degrees and needles were advanced the anterior margin of the SAP, not crossing. A lateral image was then taken to confirm appropriate placement with no neuroforaminal needle placement. Each site then underwent sensory testing at 50 Hz and 0 to 1 volt and motor testing at 2.5 Hz and 0 to 3 volt with local stimulation, but no radicular symptoms down the legs. We proceeded with radiofrequency thermocoagulation at 80 degrees celsius for 90 seconds after injecting 1ml 4% Lidocaine with 5mg Kenalog at each site after negative aspirations for blood and CSF. needles were then withdrawn 1mm and rotated 90 degrees. A second burn was performed after imaging confirmed appropriate placement. At the end of the procedure, the skin was cleansed and bandages were applied. COMPLICATIONS: No acute complications. DISPOSITION / PLANS: The patient was placed in a supine position and transferred to the recovery area in a stable condition for observation and was discharged from the recovery room after meeting discharge criteria. Home discharge instructions given to the patient by the staff. The patient was reexamined prior to discharge. Schedule Left Lumbar RFA L4-5, L5-S1 Joints.
--- NOTE | 2019-08-18 08:28 | P.GSHP ---
History of Present Illness H&P Date: 08/06/19 Chief Complaint: Low back pain 53 yo female s/f Right RFA lumbar L4-5 and L5-S1. had excellent relief with LMBB. >80% No radicular s/s CVS: RRR Resp: Non labored, no wheeze 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-headaches & some memory loss, chronic right hip pain History of Any Multi-Drug Resistant Organisms: None Reported Past Surgical History: Appendectomy, Bladder Surgery, Breast Surgery, Section, Ear Surgery, Hysterectomy, Orthopedic Surgery Additional Past Surgical History / Comment(s): colonoscopy, neck surgery, right shoulder surgery, breast biopsies x3, PAIN CLINIC PROCEDURES Past Anesthesia/Blood Transfusion Reactions: No Reported Reaction Smoking Status: Former smoker - Past Family History Mother Family Medical History: Diabetes Mellitus Father Family Medical History: COPD Medications and Allergies Home Medications Medication Instructions Recorded Confirmed Type [place] Carbonate 300 mg PO HS 08/28/16 08/05/19 History Atorvastatin [Lipitor] 20 mg PO DAILY 07/24/18 08/05/19 History Prazosin HCl 5 mg PO HS 07/24/18 08/05/19 History Multivitamins, Thera [Multivitamin 1 tab PO DAILY 11/15/18 08/05/19 History (formulary)] clonazePAM [KlonoPIN] 1 mg PO HS 11/15/18 08/05/19 History Mirtazapine 30 mg PO HS 01/01/19 08/05/19 History Montelukast [Singulair] 10 mg PO HS 01/01/19 08/05/19 History OLANZapine [ZyPREXA] 5 mg PO HS 01/01/19 08/05/19 History Cariprazine HCl [Vraylar] 6 mg PO DAILY 04/13/19 08/05/19 History Allergies Allergy/AdvReac Type Severity Reaction Status Date / Time pregabalin [From Lyrica] Allergy Unknown Itching/Hola Verified 08/05/19 10:30 sea/Vomitin g/Headache morphine Allergy Itching/Hola Verified 08/05/19 10:30 sea/Vomitin g/Headache Surgical - Exam Vital Signs Temp Pulse Resp BP Pulse Ox 97.8 F 84 18 132/62 99 08/06/19 10:05 08/06/19 10:05 08/06/19 10:05 08/06/19 10:05 08/06/19 10:05
== END ==
LOC: ORPAIN 09:12
PROVIDERS: ATTEND Anesthesiology
DX: M47.816 Spondylosis without myelopathy or radiculopathy, lumbar region (principal); M51.36 Other intervertebral disc degeneration, lumbar region; Z88.5 Allergy status to narcotic agent; Z88.8 Allergy status to other drugs, medicaments and biological substances
CPT/HCPCS: 64635; 64636; J2001 ×2; J2250; J3301; J3010; J2795; 99152; 99153

== ENCOUNTER 2019-08-27 09:07 | Day surgery (SDC) | payer MEDICARE, OTHER ==
[2019-08-25 14:31] VITALS: BMI 29.2
[~2019-08-27 09:07] MED LIST changes: -IV FLUID CONTINUATION 450 ML IV ONE; -LACTATED RINGERS 1,000 ML IV ONE; -LIDOCAINE 1% (10MG/ML) FOR IV START INTRADERMA ONE; -LIDOCAINE 1% INJ 10MG/ML (20 ML MDV) ONE; -LIDOCAINE 4% (PF) 5 ML AMP ONE; -MIDAZOLAM 2 MG/2 ML VIAL ONE; -ROPIVACAINE 5MG/ML 20ML VIAL ONE; -TRIAMCINOLONE ACETONIDE 40 MG/ML 1 ML VIAL ONE; -fentaNYL (PF) 50 MCG/ML 2 ML AMP ONE
[2019-08-27 09:51] VITALS: RESP 16; TEMP 98.3
[2019-08-27] MEDS ORDERED: LIDOCAINE 1% (10MG/ML) FOR IV START SQ ONE (10:14)
[2019-08-27] MEDS ORDERED: MIDAZOLAM 2 MG/2 ML VIAL ONE (11:17)
[2019-08-27] MEDS ORDERED: LIDOCAINE 4% (PF) 5 ML AMP ONE (11:17)
[2019-08-27] MEDS ORDERED: fentaNYL (PF) 50 MCG/ML 2 ML AMP ONE (11:17)
--- NOTE | 2019-08-27 11:40 | P.PCN ---
Date of Procedure: 08/27/19 Procedure(s) Performed: PREOPERATIVE DIAGNOSIS: Lumbar Spondylosis POSTOPERATIVE DIAGNOSIS: Same PROCEDURES: Radiofrequency ablation of the L3, L4, L5 medial branches for facets L4-5 and L5-S1 with fluoroscopic guidance on the left side SURGEON: Lamar Anguiano MD. ANESTHESIA: Lidocaine 1% 5 mL, Moderate sedation with intravenous Versed and fentanyl, sedation time 15 minutes EBL: Minimal Fluoroscopy was used for the procedure and images were saved in the radiology portion of the chart. PROCEDURE INDICATION: The patient with low back pain secondary to lumbar facet arthropathy who had more than 50% relief of pain with previous diagnostic lumbar medial branch block X2. PROCEDURE DESCRIPTION / TECHNIQUE: The patient was seen and identified in the preoperative area. Risks, benefits, complications, including but not limited to risk of infection ,bleeding , allergic reactions to the medications and incomplete pain relief , and alternatives were discussed with the patient, the patient agreed to proceed with the procedure and signed the consent. IV was started. The operative site was marked. Patient was taken to the OR and time out was completed. The patient was placed in the prone position on the procedure table. The lumbar area was prepped and draped in the usual sterile fashion. . Vital signs were closely monitored during the procedure .IV sedation was used during the procedure to decrease patients anxiety. Using AP and then oblique fluoroscopy, the "eye of the Osmin dog" corresponding to the connection between the superior and transverse articular processes of the left L4 and L5 as well as the sacral ala were identified, marked, and localized with 1% lidocaine. Subsequently, an 18 guage 100 mm radiofrequency cannula with a 10-mm active tip was advanced guided by fluoroscopy to the identified target at each site. Needle positioning was confirmed on AP, oblique and lateral fluoroscopy. Motor testing at 2.5 Hz was done with paraspinal muscle stimulation only, and no radicular symptoms down the legs. Then 1 mL of 4% lidocaine was injected in each site. Radiofrequency thermocoagulation at 80 degrees celsius for 90 seconds was then performed. Wolbach were removed. Sterile dressings were applied. COMPLICATIONS: No acute complications. DISPOSITION / PLANS: The patient was placed in a supine position and transferred to the recovery area in a stable condition for observation and was discharged from the recovery room after meeting discharge criteria. Home discharge instructions given to the patient by the staff. The patient will follow up in clinic in 4 weeks.
[2019-08-27 12:01] VITALS: BP 114/76; PULSE 69
[2019-08-27] MEDS ORDERED: IV FLUID CONTINUATION 1,000 ML IV ONE (12:02)
--- NOTE | 2019-08-27 14:39 | FL ---
Fluoroscopy HISTORY: Pain 7 seconds fluoroscopy time supplied to the referring clinician. 6 intraoperative C-arm images docume nt the procedure. See dictated report from anesthesia.
== END 2019-08-27 12:07 | disposition home or self-care (01) ==
LOC: ORPAIN 09:07
PROVIDERS: ATTEND Anesthesiology
DX: M47.816 Spondylosis without myelopathy or radiculopathy, lumbar region (principal); Z88.5 Allergy status to narcotic agent; Z88.8 Allergy status to other drugs, medicaments and biological substances
CPT/HCPCS: 64635; 64636; J2001; J2250; J3010; 99152

== ENCOUNTER → 2019-10-22 | Outpatient (CLI) | payer MEDICARE, OTHER ==
--- NOTE | 2019-10-22 13:01 | US ---
EXAMINATION TYPE: US kidneys/renal and bladder DATE OF EXAM: 10/22/2019 COMPARISON: NONE CLINICAL HISTORY: 54-year-old female N39.0 UTI, M54.5 back pain. UTI, lumbar back pain TECHNIQUE: Multiple sonographic images of the kidneys and bladder are obtained. FINDINGS: EXAM MEASUREMENTS: Right Kidney: 9.8 x 4.1 x 4.2 cm Left Kidney: 10.4 x 5.1 x 4.8 cm Right Kidney: No hydronephrosis. Left Kidney: No hydronephrosis. There is an echogenic cortical lesion upper to mid pole, probable ang iomyolipoma = 0.9cm Bladder: Mild circumferential bladder wall thickening may relate to underdistention. Bilateral Jets seen: Yes Incidental echogenic liver. IMPRESSION: 1. No hydronephrosis. 2. A 9 mm echogenic cortical lesion within the left kidney, probable AML. As a minority of renal cell carcinoma can present as an echogenic lesion on ultrasound, 3-6 month follow-up ultrasound is recomm ended to reassess. 3. Mild circumferential bladder wall thickening may relate to underdistention. Correlate to exclude c ystitis. 4. Incidental hepatic steatosis.
== END | disposition home or self-care (01) ==
LOC: RADUSWWP 11:34
PROVIDERS: ATTEND Internal Medicine
DX: N28.89 Other specified disorders of kidney and ureter (principal); N32.89 Other specified disorders of bladder; K76.0 Fatty (change of) liver, not elsewhere classified
CPT/HCPCS: 76770

== ENCOUNTER → 2019-10-26 | Outpatient (CLI) | payer MEDICARE, OTHER ==
[2019-10-26 08:49] VITALS: BP 105/72; PULSE 87; RESP 16; TEMP 98.2
--- NOTE | 2019-10-26 09:11 | P.PAINPG ---
Subjective Progress Note Date: 10/26/19 This is a follow-up visit for this 54 years old female with a chronic history of severe low back pain, he is diagnosed with lumbar degenerative disc disease and lumbar spondylosis with lumbar facet arthropathy, status post RFA of the medial branch lumbar area currently she continued to have severe low back pain with radiation to the buttock bilaterally more prominent on the right side, she was able to ambulate on her own she has no fever or night sweats she denies any motor or sensory deficits, and there is no change in bowel movement or urination Objective - Vital Signs Vital signs: Vital Signs Temp 98.2 F 10/26/19 08:32 Pulse 87 10/26/19 08:32 Resp 16 10/26/19 08:32 BP 105/72 10/26/19 08:32 Pulse Ox 98 10/26/19 08:32 - Exam Physical Examinations : -Constitutiona : Cooperative , not in acute distress . -HEENT : nech : supple , no Lymphadenopathy , normal thyroid size . : eyes : no ptosis , no icterus, no photophobia . - neurologic : Cranial nerve II to XII intact , no focal neurological deffecit . -psychatric : alert , oriented X 3 , appropriate affect , intact judgment and insight . -Lymphatic : no Lymphadenopathy . - musculoskeltal : Lumber spine moter stegnth lower extremities ,thigh and legs 5/5 Right side , 5/5 Left side deep tendon reflexes : normal Knee Jerk , normal ankle Jerk lumber facet Loading Test = negative bilaterally Range of motion of the lumbar spine Flexion 60 degrees, extension 30 degrees strait leg raising test = positive at 60 degree Fabere test= positive Right , and positive LT . Sever tenderness over the Sacroiliac joint on the Right , and Left sides Gaenslen test= positive right ,and positive left . Seated flexion test= positive right ,and positive Left . Assessment and Plan Plan: Assessment and plan=1-lumbar spondylosis with lumbar facet arthropathy without myelopathy. Status post RFA medial branch 2-lumbar degenerative disc disease. 3-bilateral sacroiliitis. Patient could benefit from bilateral sacroiliac joint steroid injection under fluoroscopy guidance at the earliest convenient for the patient Patient could benefit from Motrin 600 mg every 8 hours when necessary Time with Patient: Less than 30 PQRS Measure Charge Sheet Measure #130: Documentation of Current Meds in Medical Chart: Patient's medications documented in chart Measure #226: Tobacco Use: Screen & Cessation Intervention: Pt screened for tobacco use AND intervention given Measure #111: Pneumonia Vaccination: Pneumococcal vaccine administered or previo usly received Measure #47: Advance Care Plan: Advance care planning discussed & documented, pt chose/unable to give Measure #412: Opioid Treatment Agreement: No documentation of signed opioid treatment agreement Measure #408: Opioid Therapy Follow-up Evaluation: Patient had NO f/u eval minimum every 3 months during opioid therapy Measure #317: Preventitive Care & Scrn High Bld Press & F/U: Normal blood pressure, f/u not required Measure #128: Body Mass Index (BMI) Screening & Follow-up: BMI documented ABOVE normal parameters - f/u documented Measure #131: Pain Assessment & Follow-up: Pain positive & plan documented, Follow-up scheduled Measure #431: Unhealthy Alcohol Use Preventative Care & Scrn: Patient not identified as an unhealthy alcohol user PQRS Narrative: Smoking Status Former smoker Blood Pressure 105/72 Pain Intensity [Bilateral 8 Lower Back] Pain Intensity [Neck] 6 Pain Intensity [Right Hip] 7 Scale Used Numeric (1 - 10) Hx Alcohol Use (MH) No Home Medications: Ambulatory Orders Lillie Carbonate 300 mg PO HS 08/28/16 Atorvastatin [Lipitor] 20 mg PO DAILY 07/24/18 Prazosin HCl 5 mg PO HS 07/24/18 Multivitamins, Thera [Multivitamin (formulary)] 1 tab PO DAILY 11/15/18 clonazePAM [KlonoPIN] 1 mg PO HS 11/15/18 Mirtazapine 45 mg PO HS 01/01/19 Montelukast [Singulair] 10 mg PO HS 01/01/19 OLANZapine [ZyPREXA] 5 mg PO HS 01/01/19 Cariprazine HCl [Vraylar] 6 mg PO DAILY 04/13/19 Benztropine Mesylate [Cogentin] 1.5 tab PO TID 09/29/19 Controlled Substance Measures - Controlled Substance Measures Is patient prescribed a controlled substance at discharge?: No
== END | disposition home or self-care (01) ==
LOC: PNWHC3 08:15
PROVIDERS: ATTEND Specialist
DX: M46.1 Sacroiliitis, not elsewhere classified (principal); M47.816 Spondylosis without myelopathy or radiculopathy, lumbar region; M46.96 Unspecified inflammatory spondylopathy, lumbar region; M51.36 Other intervertebral disc degeneration, lumbar region; Z98.890 Other specified postprocedural states; Z87.891 Personal history of nicotine dependence
CPT/HCPCS: 99211

== ENCOUNTER 2019-11-25 09:39 | Emergency (ER) | payer MEDICARE, OTHER ==
[2019-11-25] MEDS ORDERED: ORPHENADRINE 30 MG/ML 2 ML VIAL IM STA (10:21)
[2019-11-25] MEDS ORDERED: KETOROLAC 15 MG/ML 1 ML VIAL IM STA (10:21)
--- NOTE | 2019-11-25 10:24 | ED ---
General Adult HPI - General Chief complaint: Extremity Problem,Nontraumatic Stated complaint: HIP PAIN Time Seen by Provider: 11/25/19 10:02 Source: patient, RN notes reviewed, old records reviewed Mode of arrival: wheelchair Limitations: no limitations - History of Present Illness Initial comments: Patient is a 54-year-old female presents emergency department today with complaints of right hip pain. She's had symptoms worsening this morning after doing a lot of mopping at work yesterday. Patient states that she fell 5 years ago on that hip is had some intermittent chronic pain since that time. She's never had imaging or x-rays to see this hip. She does go to pain management for chronic back pain. She denies abdominal pain dysuria or hematuria. She denies specific flank pain, saddle anesthesias, nausea or vomiting. She reports the pain radiates from the hip towards the posterior knee. She states that she has no calf or foot pain or peripheral paresthesias. - Related Data Home Medications Medication Instructions Recorded Confirmed Ruffin Carbonate 300 mg PO HS 08/28/16 10/26/19 Atorvastatin [Lipitor] 20 mg PO DAILY 07/24/18 10/26/19 Prazosin HCl 5 mg PO HS 07/24/18 10/26/19 Multivitamins, Thera [Multivitamin 1 tab PO DAILY 11/15/18 10/26/19 (formulary)] clonazePAM [KlonoPIN] 1 mg PO HS 11/15/18 10/26/19 Mirtazapine 45 mg PO HS 01/01/19 10/26/19 Montelukast [Singulair] 10 mg PO HS 01/01/19 10/26/19 OLANZapine [ZyPREXA] 5 mg PO HS 01/01/19 10/26/19 Cariprazine HCl [Vraylar] 6 mg PO DAILY 04/13/19 10/26/19 Benztropine Mesylate [Cogentin] 1.5 tab PO TID 09/29/19 10/26/19 Ibuprofen [Motrin] 600 mg PO Q8HR PRN 10/26/19 10/26/19 Previous Rx's Medication Instructions Recorded Cyclobenzaprine [Flexeril] 10 mg PO TID #10 tab 11/25/19 Allergies Allergy/AdvReac Type Severity Reaction Status Date / Time pregabalin [From Lyrica] Allergy Unknown Itching/Hola Verified 11/25/19 09:47 sea/Vomitin g/Headache morphine Allergy Itching/Hola Verified 11/25/19 09:47 sea/Vomitin g/Headache Review of Systems ROS Statement: Those systems with pertinent positive or pertinent negative responses have been documented in the HPI. ROS Other: All systems not noted in ROS Statement are negative. 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-headaches & some memory loss, chronic right hip pain, tremors History of Any Multi-Drug Resistant Organisms: None Reported Past Surgical History: Appendectomy, Bladder Surgery, Breast Surgery, Section, Ear Surgery, Hysterectomy, Orthopedic Surgery Additional Past Surgical History / Comment(s): colonoscopy, neck surgery, right shoulder surgery, breast biopsies x3, PAIN CLINIC PROCEDURES Past Anesthesia/Blood Transfusion Reactions: No Reported Reaction Past Psychological History: Anxiety, Bipolar, Depression Smoking Status: Current every day smoker Past Alcohol Use History: None Reported Past Drug Use History: None Reported - Past Family History Mother Family Medical History: Diabetes Mellitus Father Family Medical History: COPD General Exam - General Exam Comments Initial Comments: Alert and oriented 54-year-old female. No significant distress. Limitations: no limitations General appearance: alert, in no apparent distress Head exam: Present: atraumatic, normocephalic, normal inspection Eye exam: Present: normal appearance, PERRL, EOMI. Absent: scleral icterus, conjunctival injection, periorbital swelling ENT exam: Present: normal exam, mucous membranes moist Neck exam: Present: normal inspection. Absent: tenderness, meningismus, lymphadenopathy Respiratory exam: Present: normal lung sounds bilaterally. Absent: respiratory distress, wheezes, rales, rhonchi, stridor Cardiovascular Exam: Present: regular rate, normal rhythm, normal heart sounds. Absent: systolic murmur, diastolic murmur, rubs, gallop, clicks GI/Abdominal exam: Present: soft, normal bowel sounds. Absent: distended, tenderness, guarding, rebound, rigid Extremities exam: Present: normal inspection, full ROM, normal capillary refill. Absent: tenderness, pedal edema, joint swelling, calf tenderness Back exam: Present: normal inspection Neurological exam: Present: alert, oriented X3, CN II-XII intact Psychiatric exam: Present: normal affect, normal mood Course Vital Signs 11/25/19 09:47 Temperature 98.0 F Pulse Rate 85 Respiratory 16 Rate Blood Pressure 126/82 O2 Sat by Pulse 98 Oximetry Medical Decision Making - Medical Decision Making 54-year-old female presents right hip strain pain after doing housework yesterday. She reports a fall many years ago. Patient has full range of motion of the hip. No signs of trauma. Neurovascularly intact. Patient feels better after IM Toradol and Norflex. 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 - Radiology Data Radiology results: report reviewed No change in x-rays on right hip and pelvis. No fracture dislocation. Disposition Clinical Impression: Strain of right hip Disposition: HOME SELF-CARE Condition: Good Instructions (If sedation given, give patient instructions): Hip Sprain (ED) Additional Instructions: Please use medication as discussed. Please follow up with family doctor if symptoms have not improved over the next two days. Please return to the emergency room if your symptoms increase or worsen or for any other concerns. Prescriptions: Cyclobenzaprine [Flexeril] 10 mg PO TID #10 tab Is patient prescribed a controlled substance at d/c from ED?: No Referrals: Michelle Oliveros MD [Primary Care Provider] - 1-2 days Time of Disposition: 11:15
--- NOTE | 2019-11-25 10:43 | XR ---
EXAMINATION TYPE: XR Hip RT and AP Pelvis DATE OF EXAM: 11/25/2019 COMPARISON: Pelvic and right hip x-ray November 15, 2018 HISTORY: Pelvic and right hip pain after fall injury. TECHNIQUE: A single AP view of the pelvis is obtained. Two views of the right hip are obtained. FINDINGS: There is no acute fracture/dislocation evident in the pelvis. The sacroiliac joints appea r symmetric and within normal limits. Scattered bilateral pelvic phleboliths redemonstrated. Pubic sy mphysis remains intact. Mild right greater than left axial joint space loss of both hips redemonstrat ed Two views of right hip show no acute fracture or dislocation. No focal lytic or sclerotic lesion see n in the proximal right femur. The overlying soft tissue is unremarkable. IMPRESSION: There is no acute fracture or dislocation in the pelvis or right hip. No significant change from prior.
[2019-11-25 11:30] VITALS: BP 124/74; PULSE 78; RESP 18; TEMP 98.2
== END 2019-11-25 11:30 | disposition home or self-care (01) ==
LOC: EC 09:39
DX: S76.011A Strain of muscle, fascia and tendon of right hip, initial encounter (principal); E78.5 Hyperlipidemia, unspecified; F41.9 Anxiety disorder, unspecified; F31.9 Bipolar disorder, unspecified; F17.200 Nicotine dependence, unspecified, uncomplicated; Z79.899 Other long term (current) drug therapy; Z79.51 Long term (current) use of inhaled steroids; Z88.5 Allergy status to narcotic agent; Z88.8 Allergy status to other drugs, medicaments and biological substances; W19.XXXA Unspecified fall, initial encounter
CPT/HCPCS: 73502; 99284; 96372 ×2; J2360; J1885

== ENCOUNTER 2019-12-03 08:24 | Day surgery (SDC) | payer MEDICARE, OTHER ==
[2019-12-02 08:55] VITALS: BMI 29.2
[2019-12-03 09:19] VITALS: RESP 16; TEMP 98.1
[2019-12-03] MEDS ORDERED: LIDOCAINE 1% (10MG/ML) FOR IV START INTRADERMA ONE (09:32)
[2019-12-03] MEDS ORDERED: fentaNYL (PF) 50 MCG/ML 2 ML AMP ONE (09:43)
[2019-12-03] MEDS ORDERED: MIDAZOLAM 2 MG/2 ML VIAL ONE (09:43)
[2019-12-03] MEDS ORDERED: ROPIVACAINE 5MG/ML 20ML VIAL ONE (09:43)
[2019-12-03] MEDS ORDERED: methylPREDNISolone ACETATE 40 MG/ML 1 ML VIAL ONE (09:43)
--- NOTE | 2019-12-03 09:59 | P.PCN ---
Date of Procedure: 12/03/19 Procedure(s) Performed: Procedure= bilateral sacroiliac joints steroid injection under fluoroscopy guidance (fluoroscopy image stored on file in the radiology Department ) Preoperative diagnosis= 1-sacroiliitis 2-lumbar spondylosis with facet arthropathy Postoperative diagnosis=Same as preop Diagnosis . Complication = none Condition= stable Anesthesia= moderate sedation with intravenous Versed 1 mg , and fentanyl 100 micrograms . Indication for the procedure= patient complaining of low back pain , examination was positive for severe tenderness over the sacroiliac joints bilaterally and patient diagnosed with sacroiliitis, for this reason , she was good candidate for sacroiliac joint steroid injection. Description of the procedure= procedure risk and benefits discussed with the patient, including but not limited, risk of infection and bleeding, and ALLERGIC reaction to the medication and not complete pain relief and patient agreed with the preceding patient taken to the operating room, placed in prone position or standard monitors applied to the patient then after induction of anesthesia back prepped with chlorhexidine 3 times , Then under strict sterile technique, first I did the right sacroiliac joint the which was identified under fluoroscopy guidance been local infiltration of the skin and subcu interstitial with lidocaine 1% then 22-gauge Quincke Needle advanced slowly under fluoroscopy and placed in the right sacroiliac joint needle placement confirmed with AP and oblique and lateral view and after appropriate needle placement confirmed and after negative aspiration, or heme , then Ropivacaine 0.5% 3 mL, and 20 mg of Depo-Medrol mixed together and injected in the right sacroiliac joint after negative aspiration patient tolerated the procedure well without any complication. Then the left sacroiliac joint steroid injection done under strict sterile technique local infiltration of the skin and subcu interstitial at the location of the left sacroiliac joint then a 22-gauge Quincke Needle advanced slowly under fluoroscopy time placed in the left sacroiliac joint, needle placement confirmed with AP and oblique and lateral view then after appropriate needle placement confirmed and after negative aspiration 0.5% Marcaine 3 mL and 20 mg of Depo-Medrol injected in the left sacroiliac joint after negative aspiration patient tolerated the procedure well that any complications and she will follow up in clinic 3 weeks
[2019-12-03] MEDS ORDERED: IV FLUID CONTINUATION 1,000 ML IV ONE (10:04)
[2019-12-03 10:14] VITALS: BP 117/74; PULSE 78
--- NOTE | 2019-12-03 10:43 | FL ---
EXAMINATION TYPE: FL guided pain mgmt statistic DATE OF EXAM: 12/03/2019 CLINICAL HISTORY: Bilateral sacroiliac joint injections TECHNIQUE: Fluoroscopy. COMPARISON: None. FINDINGS: Fluoroscopic guidance was provided during procedure for performing physician. A total of 18 seconds of fluoroscopic time was utilized during the procedure and 2 spot images was acquired. Ple ase see operative report for additional details. IMPRESSION: As Above.
== END 2019-12-03 10:26 | disposition home or self-care (01) ==
LOC: ORPAIN 08:24
PROVIDERS: ATTEND Specialist
DX: M46.1 Sacroiliitis, not elsewhere classified (principal); M47.816 Spondylosis without myelopathy or radiculopathy, lumbar region; Z88.5 Allergy status to narcotic agent
CPT/HCPCS: J2250; J1030; J3010; J2795; G0260

== ENCOUNTER → 2019-12-31 | Outpatient (CLI) | payer MEDICARE, OTHER ==
--- NOTE | 2020-01-04 10:07 | MM ---
Reason for exam: screening (asymptomatic). Last mammogram was performed 9 years and 6 months ago. History: Patient is postmenopausal. Benign ultrasound-guided core biopsy of the left breast. 2 benign excisional biopsies of the left breast. Physical Findings: A clinical breast exam by your physician is recommended on an annual basis and results should be correlated with mammographic findings. MG 3D Screening Mammo W/Cad Bilateral CC and MLO view(s) were taken. Prior study comparison: June 26, 2010, CAD bilateral diagnostic mammogram. May 06, 2009, bilateral diagnostic digital mammog. The breast tissue is heterogeneously dense. This may lower the sensitivity of mammography. Finding: There are indeterminate calcifications in the lower inner quadrant, middle position of the left breast 4.2cm from the nipple. New finding since June 26, 2010 and May 06, 2009. ASSESSMENT: Incomplete: need additional imaging evaluation, BI-RAD 0 RECOMMENDATION: Special view mammogram of the left breast. [facility] will attempt to contact patient to return for supplemental views.
== END | disposition home or self-care (01) ==
LOC: RADMAMWWP 15:59
PROVIDERS: ATTEND Internal Medicine
DX: Z12.31 Encounter for screening mammogram for malignant neoplasm of breast (principal)
CPT/HCPCS: 77063; 77067

== ENCOUNTER → 2020-01-07 | Outpatient (CLI) | payer MEDICARE, OTHER ==
--- NOTE | 2020-01-07 10:12 | MM ---
Reason for exam: additional evaluation requested from abnormal screening. Last mammogram was performed less than 1 month ago. History: Patient is postmenopausal. Benign ultrasound-guided core biopsy of the left breast. 2 benign excisional biopsies of the left breast. Physical Findings: Nurse did not find any significant physical abnormalities on exam. MG Work Up Mamm w CAD LT CC with magnification, LM with magnification, and LM view(s) were taken of the left breast. Prior study comparison: December 31, 2019, bilateral MG 3d screening mammo w/cad. June 26, 2010, CAD bilateral diagnostic mammogram. Finding: There are intermediate concern, suspicious calcifications in the lower outer quadrant of the left breast 4cm from the nipple. New finding since December 31, 2019 and June 26, 2010. These results were verbally communicated with the patient and result sheet given to the patient on 01/07/20. ASSESSMENT: Suspicious, BI-RAD 4 RECOMMENDATION: Stereotactic core biopsy of the left breast. Called Dr. Oliveros's office with mammographic findings and has scheduled an appointment for the patient for 02/05/20 at 1:[address] Brady. Biopsy scheduled for 02/11/20 at 8:00. PRELIMINARY REPORT CALLED AND FAXED TO DR. BRADY ON 01/07/20.
== END | disposition home or self-care (01) ==
LOC: RADMAMWWP 08:02
PROVIDERS: ATTEND Internal Medicine
DX: R92.8 Other abnormal and inconclusive findings on diagnostic imaging of breast (principal)
CPT/HCPCS: 77065

== ENCOUNTER 2020-01-28 08:22 | Day surgery (SDC) | payer MEDICARE, OTHER ==
[2020-01-26 15:44] VITALS: BMI 28.3
[2020-01-28] MEDS ORDERED: LIDOCAINE 1% (10MG/ML) FOR IV START INTRADERMA ONE (09:27)
[2020-01-28] MEDS ORDERED: LACTATED RINGERS 1,000 ML IV ONE (09:28)
[2020-01-28] MEDS ORDERED: fentaNYL (PF) 50 MCG/ML 2 ML AMP ONE (09:38)
[2020-01-28] MEDS ORDERED: ROPIVACAINE 5MG/ML 20ML VIAL ONE (09:38)
[2020-01-28] MEDS ORDERED: IOPAMIDOL M200 10 ML VIAL ONE (09:38)
[2020-01-28] MEDS ORDERED: TRIAMCINOLONE ACETONIDE 40 MG/ML 1 ML VIAL ONE (09:38)
[2020-01-28] MEDS ORDERED: MIDAZOLAM 2 MG/2 ML VIAL ONE (09:38)
[2020-01-28 09:39] VITALS: TEMP 98.6
[2020-01-28] MEDS ORDERED: IV FLUID CONTINUATION 1,000 ML IV ONE ×2 (09:58)
[2020-01-28 10:02] VITALS: RESP 18
[2020-01-28 10:15] VITALS: BP 97/54; PULSE 78
--- NOTE | 2020-01-28 12:23 | FL ---
Fluoroscopy HISTORY: Pain 4 seconds fluoroscopy time supplied to the referring clinician. 2 intraoperative C-arm images docume nt the procedure. See dictated report from anesthesia.
== END 2020-01-28 10:28 | disposition home or self-care (01) ==
LOC: ORPAIN 08:22
PROVIDERS: ATTEND Anesthesiology
DX: M46.1 Sacroiliitis, not elsewhere classified (principal); M47.816 Spondylosis without myelopathy or radiculopathy, lumbar region; Z90.710 Acquired absence of both cervix and uterus; Z88.5 Allergy status to narcotic agent; Z88.8 Allergy status to other drugs, medicaments and biological substances
CPT/HCPCS: J2250; J3301; J3010; Q9966; J2795; G0260; 99152

== ENCOUNTER → 2020-02-05 | Outpatient (CLI) | payer MEDICARE, OTHER ==
[2020-02-05 13:19] VITALS: BP 108/74; PULSE 74; RESP 18; TEMP 97.9
--- NOTE | 2020-02-05 13:46 | P.GSHP ---
History of Present Illness H&P Date: 02/05/20 Chief Complaint: abnormal left breast mammogram Amira is a 54 year old white female seen in consultation for Dr. Oliveros with a complaint of an abnormal left breast mammogram. She states that she does feel some nodularity in the left lateral breast which has been present for several months. Additionally she has had some discomfort at this site. The pain is described as shooting in nature and occurs several times per week. It lasts for only several seconds. This spreads to under her arm. She down stairs several years ago and hit her head multiple times resulting in permanent brain damage. She was in the long-term for 7 months after the fall. She lives independently at this time. She complains of left breast nipple discharge which is creamy in color. She sees this in her bras and has also been ongoing for months. She has had left breast biopsy in the past which was benign. Caffeine: One cup of coffee per day Nicotine: 1 Pack of cigarettes for 3 days/ for 40 years, used to smoke 1 1/2 PPD Theophylline: Negative Family history: none Hormonal History: menarche: 15 , breast fed: no, age at first : 22 menopause: hysterectomy at 30, no cancer, left ovaries BCP: none Surgical history: Hysterectomy 2 Appendectomy Tubes in ears Medical History: closed head injury difficulty wiith ambulation after trauma COPD dizzyness arthritis Social History: nicotine: 1 pack/3 days alcohol: stopped drinking 11 years ago drugs: Marijuana occasional - Constitutional Constitutional: Reports sweats - EENT Eyes: denies blurred vision, denies pain Ears: bilateral: decreased hearing Ears, nose, mouth and throat: Reports headache - Breasts Breasts: bilateral: as per HPI - Cardiovascular Cardiovascular: Denies chest pain, Denies shortness of breath - Respiratory Comment: smoker Respiratory: Denies cough, Denies 7 - Gastrointestinal Gastrointestinal: Denies abdominal pain, Denies diarrhea, Denies nausea, Denies vomiting - Genitourinary (Female) Genitourinary: Denies dysuria, Denies hematuria - Menstruation Menstruation: Reports post hysterectomy - Musculoskeletal Comment: arthritis Musculoskeletal: Reports as per HPI - Integumentary Integumentary: Denies pruritus, Denies rash - Neurological Neurological: Reports head injury, Reports weakness, Denies numbness - Psychiatric Psychiatric: Reports anxiety, Reports depression - Endocrine Endocrine: Reports weight change, Denies fatigue - Hematologic/Lymphatic Comment: none - Allergic/Immunologic Allergic/Immunologic: Reports seasonal allergies 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-headaches & some memory loss, chronic right hip pain, tremors History of Any Multi-Drug Resistant Organisms: None Reported Past Surgical History: Appendectomy, Bladder Surgery, Breast Surgery, Section, Ear Surgery, Hysterectomy, Orthopedic Surgery Additional Past Surgical History / Comment(s): colonoscopy, neck surgery, right shoulder surgery, left breast biopsies x3, PAIN CLINIC PROCEDURES Past Anesthesia/Blood Transfusion Reactions: No Reported Reaction Past Psychological History: Anxiety, Bipolar, Depression Smoking Status: Current every day smoker Past Alcohol Use History: None Reported Additional Past Alcohol Use History / Comment(s): Past ETOH abuse Past Drug Use History: None Reported Additional Drug Use History / Comment(s): prescribed percocet. - Past Family History Mother Family Medical History: Diabetes Mellitus Father Family Medical History: COPD Medications and Allergies Home Medications Medication Instructions Recorded Confirmed Type [facility] Carbonate 300 mg PO HS 08/28/16 02/05/20 History Atorvastatin [Lipitor] 20 mg PO HS 07/24/18 02/05/20 History Prazosin HCl 5 mg PO HS 07/24/18 02/05/20 History Multivitamins, Thera [Multivitamin 1 tab PO DAILY 11/15/18 02/05/20 History (formulary)] clonazePAM [KlonoPIN] 1 mg PO HS 11/15/18 02/05/20 History Mirtazapine 45 mg PO HS 01/01/19 02/05/20 History Montelukast [Singulair] 10 mg PO HS 01/01/19 02/05/20 History OLANZapine [ZyPREXA] 5 mg PO HS 01/01/19 02/05/20 History Cariprazine HCl [Vraylar] 6 mg PO DAILY 04/13/19 02/05/20 History Benztropine Mesylate [Cogentin] 1.5 tab PO TID 09/29/19 02/05/20 History Ibuprofen [Motrin] 600 mg PO Q8HR PRN 10/26/19 02/05/20 History Divalproex Sodium 250 mg PO BID 01/26/20 02/05/20 History Topiramate [Topamax] 25 mg PO DAILY 01/26/20 02/05/20 History clonazePAM [KlonoPIN] 0.5 mg PO DAILY 01/26/20 02/05/20 History Allergies Allergy/AdvReac Type Severity Reaction Status Date / Time pregabalin [From Lyrica] Allergy Unknown Itching/Hola Verified 02/05/20 13:14 sea/Vomitin g/Headache morphine Allergy Itching/Hola Verified 02/05/20 13:14 sea/Vomitin g/Headache Surgical - Exam Vital Signs Temp Pulse Resp BP Pulse Ox 97.9 F 74 18 108/74 97 02/05/20 13:16 02/05/20 13:16 02/05/20 13:16 02/05/20 13:16 02/05/20 13:16 BMI 28.5 - General no distress - Eyes normal ocular movement - ENT normal nares - Neck no masses, trachea midline - Respiratory normal respiratory effort, clear to auscultation - Cardiovascular Rhythm: regular Heart Sounds: normal: S1, S2 - Abdomen Abdomen: soft - Integumentary nomal turgor - Neurologic no disoriented, no combative - Musculoskeletal normal gait - Psychiatric oriented to time, oriented to person, oriented to place, speech is normal, memory intact breast exam: BRA 38C inspection: Bilateral grade 2 ptosis Palpation: Right breast: Multi-positional exam fibrocystic changes, no dominant masses or nodules of concern Right axilla: No adenopathy of concern Left breast: 2 scars from prior biopsy in the lateral aspect of the breast, multiple positional exam fibrocystic changes some slight changes near the scar is felt to be scar tissue tender to palpation Left axilla: No adenopathy of concern Results Mammogram results reviewed Assessment and Plan Assessment: Impression: closed head injury difficulty wiith ambulation after trauma COPD dizzyness arthritis Fibrocystic breast changes Probable scar tissue lateral aspect of left breast which is tender to palpation Abnormal left breast mammogram Plan: 1. Medical management of medical conditions 2. Have discussed causes of fibrocystic breast discomfort i.e. nicotine and caffeine 3. Stereotactic core biopsy left breast Risk and benefits of procedure discussed with the patient, risks include but are not limited to bleeding, infection, reaction to the anesthetic. She understands and wishes to proceed. Alternatives such as watchful waiting resection in the operating room discussed but not recommended. Cc: Dr. Oliveros encounter 35 minutes, > 50% of time spent in planning and counselling
== END | disposition home or self-care (01) ==
LOC: WWCWWP 12:23
PROVIDERS: ATTEND Surgery
DX: Z53.9 Procedure and treatment not carried out, unspecified reason (principal)

== ENCOUNTER → 2020-02-08 | Outpatient (CLI) | payer MEDICARE, OTHER ==
--- NOTE | 2020-02-08 10:04 | BD ---
EXAMINATION TYPE: Axial Bone Density DATE OF EXAM: 02/08/2020 COMPARISON: NONE CLINICAL HISTORY: 54 YR OLD FEMALE.....ICD-10 CODE: Z78.0 POST MENOPAUSAL Height: 63 Weight: 158 FRAX RISK QUESTIONS: History of Fracture in Adulthood: YES Current Tobacco Use: YES RISK FACTORS HISTORY OF: HX OF RT SHOULDER FX 5 YRS AGO Postmenopausal woman: PARTIAL HYST AT AGE 30, POSSIBLE KAREN AT 53 Hyperparathyroidism: NO Adrenal Insufficiency: NO MEDICATIONS: Additional Medications: UNSURE OF NAME OF HER ANTIDEPRESSANTS, AND ANTI- ANXIETY, STATIN FOR CHOLESTE ROL, REFLUX MEDS, Additional History: HX OF BRAIN DMG, HEAD INJURY, REFULX AND CHOLESTEROL, OSTEOARTHRITIS, EXAM MEASUREMENTS: Bone mineral densitometry was performed using the [employer] System. Bone mineral density as measured about the Lumbar spine is: ----- L1-L4(G/cm2): 1.340 T Score Values are as follows: ----- L1: 0.5 ----- L2: -0.2 ----- L3: 3.0 ----- L4: 1.7 ----- L1-L4: 1.3 Bone mineral density FIRST BONE DENSITY......BASELINE STUDY Bone mineral density about the R hip (g/cm2): 1.099 Bone mineral density about the L hip (g/cm2): 1.100 T Score values are as follows: -----R Neck: -0.3 -----L Neck: -0.5 -----R Total: 0.7 -----L Total: 0.7 Bone mineral density BASELINE STUDY FRAX%s: THERE IS A 8.3% CHANCE FOR A MAJOR OSTEOPOROTIC FX AND A 0.4% FOR HIP....PROBABILITY FOR FX IN 10 YRS TIME IMPRESSION: No evidence for osteoporosis or osteopenia NOTE: T-SCORE=SD OF THE YOUNG ADULT MEAN.
== END | disposition home or self-care (01) ==
LOC: RADBDWWP 07:36
PROVIDERS: ATTEND Internal Medicine
DX: Z78.0 Asymptomatic menopausal state (principal)
CPT/HCPCS: 77080

== ENCOUNTER → 2020-02-11 | Day surgery (SDC) | payer MEDICARE, OTHER ==
--- NOTE | 2020-01-28 09:59 | P.PCN ---
Date of Procedure: 01/28/20 Description of Procedure: Procedure= bilateral sacroiliac joints steroid injection under fluoroscopy guidance (fluoroscopy image stored on file in the radiology Department ) Preoperative diagnosis= 1-sacroiliitis 2-lumbar spondylosis with facet arthropathy Postoperative diagnosis=Same as preop Diagnosis . Complication = none Condition= stable Anesthesia= moderate sedation with intravenous sedation, sedation time 10 min Indication for the procedure= patient complaining of low back pain , examination was positive for severe tenderness over the sacroiliac joints bilaterally and patient diagnosed with sacroiliitis, for this reason , she was good candidate for sacroiliac joint steroid injection. Description of the procedure= procedure risk and benefits discussed with the patient, including but not limited, risk of infection and bleeding, and ALLERGIC reaction to the medication and not complete pain relief and patient agreed with the preceding patient taken to the operating room, placed in prone position or standard monitors applied to the patient then after induction of anesthesia back prepped with chlorhexidine 3 times , Then under strict sterile technique, first I did the right sacroiliac joint the which was identified under fluoroscopy guidance been local infiltration of the skin and subcu interstitial with lidocaine 1% then 22-gauge Quincke Needle advanced slowly under fluoroscopy and placed in the right sacroiliac joint needle placement confirmed with AP and oblique and lateral view and after appropriate needle placement confirmed and after negative aspiration, or heme , then 0.5% Marcaine 1.5 mL and 20 mg of Depo-Medrol mixed together and injected in the right sacroiliac joint after negative aspiration patient tolerated the procedure well without any complication. Then the left sacroiliac joint steroid injection done under strict sterile technique local infiltration of the skin and subcu interstitial at the location of the left sacroiliac joint then a 22-gauge Quincke Needle advanced slowly under fluoroscopy time placed in the left sacroiliac joint, needle placement confirmed with AP and oblique and lateral view then after appropriate needle placement confirmed and after negative aspiration 0.5% Marcaine 1.5 mL and 20 mg of Depo-Medrol injected in the left sacroiliac joint after negative aspiration patient tolerated the procedure well that any complications and she will follow up in clinic 3 weeks
[2020-02-11 07:21] VITALS: RESP 16; TEMP 98.4
--- NOTE | 2020-02-11 08:25 | P.PCN ---
Date of Procedure: 02/11/20 Preoperative Diagnosis: Mammographic abnormality microcalcifications left breast lower outer quadrant Postoperative Diagnosis: Same Procedure(s) Performed: Stereotactic core biopsy left breast Anesthesia: local Surgeon: Lynsey Brady Pathology: other (Breast tissue) Condition: stable Disposition: same day Indications for Procedure: Microcalcifications of concern left breast lower outer quadrant Operative Findings: Radiographic of specimen reveals microcalcifications Description of Procedure: Patient is a 54-year-old white female who on a mammogram was noted to have microcalcifications of concern in her left breast in the lower outer quadrant. She was recommended to undergo stereotactic core biopsy. Alternatives such as watchful waiting appropriate suction and the operating room were discussed but not recommended. The patient agreed to the procedure. The patient was brought to stereotactic core biopsy room. A instrument repairer film was obtained. The lesion of concern was identified. Stereo pair was obtained. The breast was prepped using Betadine. 20 mL of 1% lidocaine were used to anesthetize the area of concern. A 9-gauge vacuum-assisted core rotating biopsy needle was driven to the correct coordinates and fired. Post-fire film revealed the needle to be in the correct location. A core specimens were obtained. Radiograph of the specimen revealed the calcifications of concern in the specimen. A suture marked At marker was placed. The patient tolerated procedure in stable condition. Specimen sent to pathology. The patient will follow with Dr. Alvarado next week.
--- NOTE | 2020-02-11 08:52 | MM ---
EXAMINATION TYPE: MG stereo VAD BX LT DATE OF EXAM: 02/11/2020 COMPARISON: Prior mammogram January 07, 2020 and older mammograms. CLINICAL HISTORY: New suspicious grouped calcification left breast. TECHNIQUE: Stereotactic guided core biopsy of left breast. FINDINGS: The procedure of stereotactic guided core biopsy was explained to the patient. Benefits, alternatives, and risks were discussed. An informed consent was then obtained. The shortness pathway for biopsy was chosen. Shortness pathway was inferior approach. I performed the localization, then surgeon, Dr. Christiano Conte performed the remainder of the procedure. A vacuum assisted biopsy gun was used to obtain multiple core samples. The patient tolerated the procedure well without any immediate complication. The patient was kept in the radiology department for short stay after the procedure and then discharged home in stable condition. Targeted calcifications are identified in specimen mammogram. Post biopsy mammogram shows the clip to appear in satisfactory position relative to the targeted area of concern on the preprocedure images. Few more scattered surrounding punctate calcifications are identified. Clip is perhaps few millimeters cranial to the majority of calcifications on lateral view IMPRESSION: SUCCESSFUL, UNCOMPLICATED STEREOTACTIC GUIDED CORE BIOPSY OF AREA OF CONCERN IN THE LEFT BREAST, FULL PATHOLOGY RESULTS TO FOLLOW. Low to intermediate index of suspicion noted at time of procedure. Pathology Results: Benign LEFT BREAST, STEREOTACTIC CORE BIOPSY: Fibrocystic changes including cysts, apocrine metaplasia, mild usual type ductal hyperplasia, columnar cell change and calcifications. Recommendation Follow up mammogram of the left breast in 6 months. MTDD
[2020-02-11 09:11] VITALS: BP 110/70; PULSE 82
== END ==
LOC: RADMAMWWP 07:04
PROVIDERS: ATTEND Surgery
DX: N60.12 Diffuse cystic mastopathy of left breast (principal); N60.82 Other benign mammary dysplasias of left breast
CPT/HCPCS: 88305; 19081; A4648; J2001

== ENCOUNTER → 2020-02-15 | Outpatient (CLI) | payer MEDICARE, OTHER ==
[2020-02-15 09:15] VITALS: BP 117/81; PULSE 80; RESP 16; TEMP 98.2
--- NOTE | 2020-02-15 09:51 | P.PN ---
Subjective Progress Note Date: 02/15/20 This is a follow-up visit for this 54 years old female with a chronic history of severe low back pain, he is diagnosed with lumbar degenerative disc disease, and lumbar spondylosis with lumbar facet arthropathy, and bilateral sacroiliitis, status post RFA of the medial branch lumbar area currently , and bilateral sacroiliac joint steroid injection , she continued to have severe low back pain with radiation to the buttock bilaterally more prominent on the right side, she was able to ambulate on her own she has no fever or night sweats she denies any motor or sensory deficits, and there is no change in bowel movement or urination Objective - Vital Signs Vital signs: Vital Signs Temp 98.2 F 02/15/20 09:05 Pulse 80 02/15/20 09:05 Resp 16 02/15/20 09:05 BP 117/81 02/15/20 09:05 Pulse Ox 95 02/15/20 09:05 - Exam -Constitutiona : Cooperative , not in acute distress . -HEENT : nech : supple , no Lymphadenopathy , normal thyroid size . : eyes : no ptosis , no icterus, no photophobia . - neurologic : Cranial nerve II to XII intact , no focal neurological deffecit . -psychatric : alert , oriented X 3 , appropriate affect , intact judgment and insight . -Lymphatic : no Lymphadenopathy . - musculoskeltal : Lumber spine moter stegnth lower extremities ,thigh and legs 5/5 Right side , 5/5 Left side deep tendon reflexes : normal Knee Jerk , normal ankle Jerk lumber facet Loading Test = negative bilaterally Range of motion of the lumbar spine Flexion 60 degrees, extension 30 degrees strait leg raising test = positive at 60 degree Fabere test= positive Right , and positive LT . Sever tenderness over the Sacroiliac joint on the Right , and Left sides Gaenslen test= positive right ,and positive left . Seated flexion test= positive right ,and positive Left . Assessment and Plan Plan: Assessment and plan=1-lumbar spondylosis with lumbar facet arthropathy without myelopathy. 2-lumbar degenerative disc disease. 3-bilateral sacroiliitis. Patient continued to have severe low back pain after RFA of the medial branch lumbar area, and after bilateral sacroiliac joint steroid injection Patient could benefit from Motrin 600 mg every 8 hours when necessary. Patient will be referred to a spine surgeon for evaluation for possible surgical intervention Time with Patient: Less than 30 PQRS Measure Charge Sheet Measure #130: Documentation of Current Meds in Medical Chart: Patient's medications documented in chart Measure #226: Tobacco Use: Screen & Cessation Intervention: Pt screened for tobacco use AND intervention given Measure #111: Pneumonia Vaccination: Pneumococcal vaccine administered or previously received Measure #47: Advance Care Plan: Advance care planning discussed & documented, pt chose/unable to give Measure #412: Opioid Treatment Agreement: No documentation of signed opioid treatment agreement Measure #408: Opioid Therapy Follow-up Evaluation: Patient had NO f/u eval minimum every 3 months during opioid therapy Measure #317: Preventitive Care & Scrn High Bld Press & F/U: Normal blood pressure, f/u not required Measure #128: Body Mass Index (BMI) Screening & Follow-up: BMI documented ABOVE normal parameters - f/u documented Measure #131: Pain Assessment & Follow-up: Pain positive & plan documented, Follow-up scheduled Measure #431: Unhealthy Alcohol Use Preventative Care & Scrn: Patient not identified as an unhealthy alcohol user Time with Patient: Less than 30
== END | disposition home or self-care (01) ==
LOC: PNWHC3 08:32
PROVIDERS: ATTEND Specialist
DX: M46.1 Sacroiliitis, not elsewhere classified (principal); M47.816 Spondylosis without myelopathy or radiculopathy, lumbar region; M51.36 Other intervertebral disc degeneration, lumbar region
CPT/HCPCS: 99211

== ENCOUNTER → 2020-03-03 | Outpatient (CLI) | payer MEDICARE, OTHER ==
[2020-03-03 10:26] VITALS: BP 120/87; PULSE 81; RESP 18; TEMP 98.1
--- NOTE | 2020-03-03 10:35 | P.PN ---
Subjective Progress Note Date: 03/03/20 Principal diagnosis: Stereotactic core biopsy results Amira is a 54-year-old white female status post left breast stereotactic core biopsy in [id number]. She tolerated the procedure with no complications. Pathology revealed fibrocystic changes with calcifications in the specimen. This is felt to be concordant. She was seen in consultation for Dr. Oliveros on 02-05-20 with a complaint of an abnormal left breast mammogram. She does have some left breast nipple discharge this is non-bloody in nature and appears to be fibrocystic. This occurs intermittently. She has had some persistent left lateral breast discomfort but there are no lumps masses or nodules to account for this, radiographic finding in the left breast was sampled as stated above. Family history: Negative Surgical history: Hysterectomy 2 Appendectomy Tubes in ears Stereo biopsy left breast Medical history: Closed head injury Difficulty with ambulation after trauma COPD Dizziness Arthritis Social history: Nicotine: One pack every 3 days Alcohol: Stopped drinking 11 years ago Drugs: Marijuana occasional Objective - Vital Signs Vital signs: Vital Signs Temp 98.1 F 03/03/20 10:24 Pulse 81 03/03/20 10:24 Resp 18 03/03/20 10:24 BP 120/87 03/03/20 10:24 Pulse Ox 96 03/03/20 10:24 Intake & Output 03/02/20 03/03/20 03/03/20 18:59 06:59 18:59 Weight 72.575 kg - Exam BMI 28.3 - Constitutional General appearance: Present: obese - EENT Eyes: Present: EOMI ENT: Present: hearing grossly normal - Neck Neck: Present: normal ROM - Respiratory Respiratory: bilateral: CTA - Cardiovascular Rhythm: regular Heart sounds: normal: S1, S2 - Gastrointestinal General gastrointestinal: Present: soft - Integumentary Integumentary: Present: normal turgor - Psychiatric Psychiatric: Present: A&O x's 3, appropriate affect, intact judgment & insight - Additional findings Additional findings: Left breast core biopsy site clean and dry No evidence of hematoma or infection Assessment and Plan Assessment: impression: Closed head injury Difficulty with ambulation after trauma COPD Dizziness Arthritis fibrocystic breast changes Plan: 1. left breast mammogram in 6 months with appointment at that time CC: Dr. Oliveros encounter 15 intues, > 50% of time in planning and counselling
== END | disposition home or self-care (01) ==
LOC: WWCWWP 09:38
PROVIDERS: ATTEND Surgery
DX: Z53.9 Procedure and treatment not carried out, unspecified reason (principal)

== ENCOUNTER → 2020-08-15 | Outpatient (CLI) | payer MEDICARE, OTHER ==
--- NOTE | 2020-08-15 13:52 | USB ---
EXAMINATION TYPE: US breast limited LT DATE OF EXAM: 08/15/2020 COMPARISON: Mammogram same date CLINICAL HISTORY: N63. PALP/AREA OF CONCERN. Findings: The left breast was scanned in the region of patient's pain from 1:00 through 2:00 and in the left ax illary tail. An incidental cyst measuring up to 0.5 cm is noted. No definite sonographic correlate fo r the left breast pain. IMPRESSION: No sonographic correlate for patient's left breast pain. Clinical follow-up is recommended for patien ts left chest pain radiating to the left chest shoulder which is particularly concerning for possible cardiac etiology. BI-RADS 2, benign. Recommendation: Patient is due for her bilateral mammogram in December 2020.
--- NOTE | 2020-08-15 14:36 | MM ---
Reason for exam: follow-up at short interval from prior study. Last mammogram was performed 7 months ago. History: Patient is postmenopausal. Benign MG stereo VAD BX LT of the left breast, February 11, 2020. Benign ultrasound-guided core biopsy of the left breast. 2 benign excisional biopsies of the left breast. Physical Findings: Nurse did not find any significant physical abnormalities on exam. MG 3D Diag Mammo W/Cad LT CC, MLO, and XCCL view(s) were taken of the left breast. Prior study comparison: January 07, 2020, left breast MG work up mamm w CAD LT. December 31, 2019, bilateral MG 3d screening mammo w/cad. The breast tissue is heterogeneously dense. This may lower the sensitivity of mammography. Left biopsy clip. Left chest pain upper outer quadrant. No mammogram correlate. Recommend left ultrasound. These results were verbally communicated with the patient and result sheet given to the patient on 08/15/20. ASSESSMENT: Incomplete: need additional imaging evaluation, BI-RAD 0 RECOMMENDATION: Ultrasound of the left breast.
== END | disposition home or self-care (01) ==
LOC: RADMAMWWP 12:48
PROVIDERS: ATTEND Surgery
DX: R92.2 Inconclusive mammogram (principal); Z78.0 Asymptomatic menopausal state
CPT/HCPCS: 77065; 76642; G0279; 77061

== ENCOUNTER → 2020-08-25 | Outpatient (CLI) | payer MEDICARE, OTHER ==
[2020-08-25 13:41] VITALS: BP 119/86; PULSE 77; RESP 18; TEMP 98.5
--- NOTE | 2020-08-25 13:52 | P.PN ---
Subjective Progress Note Date: 08/25/20 Principal diagnosis: Status post stereo biopsy left breast/benign Stereotactic core biopsy results Amira is a 54-year-old white female status post left breast stereotactic core biopsy on . She tolerated the procedure with no complications. Pathology revealed fibrocystic changes with calcifications in the specimen. This is felt to be concordant. She was seen in consultation for Dr. Oliveros on 02-05-20 with a complaint of an abnormal left breast mammogram. She does have some left breast nipple discharge this is non-bloody in nature and appears to be fibrocystic. This occurs intermittently. She has had some persistent left lateral breast discomfort several times per week but there are no lumps masses or nodules to account for this, radiographic finding in the left breast was sampled as stated above. She had a left breast mammogram and 2120 this was felt to be incomplete and an ultrasound was recommended and ultrasound was performed on the same date and no specific lesions of concern were identified the recommendation as per radiology was for a bilateral mammogram in December 2020. Family history: Negative Surgical history: Hysterectomy 2 Appendectomy Tubes in ears Stereo biopsy left breast Medical history: Closed head injury Difficulty with ambulation after trauma COPD Dizziness Arthritis Social history: Nicotine: One pack every 3 days Alcohol: Stopped drinking 11 years ago Drugs: Marijuana occasional ROS: HEENT: normal/ closed head injury, decreased memory Lungs: none heart: none GI: none : none; small kidney stones noted on ultrasound Musculoskeletal: back pain neurologic: Closed head injury Hematologic: none Psychiatric: Anxiety/depression ALLERGIES: pregabalin, morphine Objective - Vital Signs Vital signs: Vital Signs Temp 98.5 F 08/25/20 13:39 Pulse 77 08/25/20 13:39 Resp 18 08/25/20 13:39 BP 119/86 08/25/20 13:39 Pulse Ox 96 08/25/20 13:39 Intake & Output 08/24/20 08/25/20 08/25/20 18:59 06:59 18:59 Weight 72.575 kg - Exam BMI 28.3 - Constitutional General appearance: Present: average body habitus - EENT Eyes: Present: EOMI ENT: Present: hearing grossly normal - Neck Neck: Present: normal ROM - Respiratory Respiratory: bilateral: CTA - Cardiovascular Rhythm: regular Heart sounds: normal: S1, S2 - Gastrointestinal General gastrointestinal: Present: soft - Integumentary Integumentary: Present: normal turgor - Musculoskeletal Musculoskeletal Comment(s): prior fracture right clavicle with skeletal deformity Musculoskeletal: Present: gait normal - Psychiatric Psychiatric: Present: A&O x's 3, appropriate affect, intact judgment & insight - Additional findings Additional findings: Breast exam: BRA: 38B/C inspection: Bilateral grade 2 ptosis Palpation: Right breast: Multi-positional exam fibrocystic changes, no dominant masses or nodules of concern Right axilla: No adenopathy of concern Left breast: Multiple positional exam fibrocystic changes, no dominant masses or nodules of concern Left axilla: No adenopathy of concern Assessment and Plan Assessment: Impression: Closed head injury Difficulty with ambulation after trauma COPD Dizziness Arthritis Patient for bilateral mammogram in December Fibrocystic breast changes Plan: 1. Bilateral mammogram in December with physician exam at that time CC: Dr. Oliveros
== END ==
LOC: WWCWWP 13:24
PROVIDERS: ATTEND Surgery
DX: N60.12 Diffuse cystic mastopathy of left breast (principal); S09.90XA Unspecified injury of head, initial encounter; F17.210 Nicotine dependence, cigarettes, uncomplicated; J44.9 Chronic obstructive pulmonary disease, unspecified; R42 Dizziness and giddiness; M19.90 Unspecified osteoarthritis, unspecified site; Z88.5 Allergy status to narcotic agent; Z88.6 Allergy status to analgesic agent

== ENCOUNTER → 2020-10-12 | Outpatient (CLI) | payer MEDICARE, OTHER ==
--- NOTE | 2020-10-12 11:50 | P.STRESS ---
- Stress Test Note Stress Test Results/Findings: Exam Performed: NM stress lexiscan cardiolite Exam Date: 10/12/20 Reason for Exam: Abnormal EKG Height: 5 ft 3 in Weight: 72.575 kg Protocol: Lexiscan Stage: na Duration of Exercise: na Resting Heart Rate: 56 Resting Blood Pressure: 84/52 Maximum Achieved Heart Rate: 84 Maximum Achieved Blood Pressure: 108/61 85% PMHR: 141 100% PMHR: 166 METS: na Technologist Comment: Stress Test Results/Findings: This is a 55-year-old female with history of of smoking, family history of ischemic heart disease and hypercholesterolemia being evaluated for symptoms of chest pain and shortness of breath. Stress data: Baseline EKG showed sinus rhythm with normal NM interval and QRS duration. Blood pressure at rest is 84/52 with pulse rate of 56. History and was of Lexiscan was infused. EKGs taken during or after infusion did not reveal significant change from the baseline. Final impression: #1. Negative Lexiscan stress test #2. Report on the nuclear images to be given by the radiologist.
--- NOTE | 2020-10-12 12:37 | NM ---
EXAMINATION TYPE: NM stress lexiscan cardiolite DATE OF EXAM: 10/12/2020 COMPARISON: NONE HISTORY: Chest pain TECHNIQUE: After the intravenous administration of 9 mCi Tc 99m Sestamibi - Cardiolite resting SPECT images acquired 45 minutes post injection. The patient received 0.4mg Lexiscan, 24.6 mCi Tc 99m Sestamibi - Stress images obtained [address] injection FINDINGS: Review of stress and rest SPECT images demonstrates no distinct perfusion abnormality. Gated analysi s shows normal wall motion with an estimated left ventricular ejection fraction of 73 %. IMPRESSION: No scintigraphic evidence for reversible ischemia.
--- NOTE | 2020-10-13 09:21 | EST ---
Stress Test Results/Findings: Exam Performed: NM stress lexiscan cardiolite Exam Date: 10/12/20 Reason for Exam: Abnormal EKG Height: 5 ft 3 in Weight: 72.575 kg Protocol: Lexiscan Stage: na Duration of Exercise: na Resting Heart Rate: 56 Resting Blood Pressure: 84/52 Maximum Achieved Heart Rate: 84 Maximum Achieved Blood Pressure: 108/61 85% PMHR: 141 100% PMHR: 166 METS: na Technologist Comment: Stress Test Results/Findings: This is a 55-year-old female with history of of smoking, family history of ischemic heart disease and hypercholesterolemia being evaluated for symptoms of chest pain and shortness of breath. Stress data: Baseline EKG showed sinus rhythm with normal IN interval and QRS duration. Blood pressure at rest is 84/52 with pulse rate of 56. History and was of Lexiscan was infused. EKGs taken during or after infusion did not reveal significant change from the baseline. Final impression: #1. Negative Lexiscan stress test #2. Report on the nuclear images to be given by the radiologist. YESSY
== END | disposition home or self-care (01) ==
LOC: RADNMMAIN 07:48
PROVIDERS: ATTEND Internal Medicine
DX: R94.31 Abnormal electrocardiogram [ECG] [EKG] (principal); R07.9 Chest pain, unspecified
CPT/HCPCS: 93017; 78452; A9500

== ENCOUNTER → 2020-12-14 | Outpatient (CLI) | payer MEDICARE, OTHER ==
--- NOTE | 2020-12-15 08:21 | CT ---
EXAMINATION TYPE: CT chest abdomen w con DATE OF EXAM: 12/14/2020 COMPARISON: 04/16/2017 HISTORY: Dysphagia, can't tolerate food/liquids, caught in throat, vomits up, abdomen pain CT DLP: 1010.3 mGycm CONTRAST: CT scan of the chest, abdomen is performed without Oral Contrast and with IV Contrast, patient inject ed with 100 mL of Isovue 300. CT Chest: LUNGS: The lungs are clear and free of infiltrate or atelectasis. No pulmonary nodule or mass is det ected. No pleural effusion or CT evidence of interstitial lung disease. MEDIASTINUM: Thoracic aorta is of normal caliber. The heart is not enlarged. No evidence for media stinal mass or adenopathy. HILAR STRUCTURES: No evidence for mass. No hilar adenopathy is appreciated. OTHER: No significant abnormality. CONTRAST CT ABDOMEN FINDINGS: LIVER/GB: Hepatic steatosis noted. Cholecystectomy clips are in place. No space occupying hepatic les ion. Biliary tree is of normal caliber. PANCREAS: No inflammation. No distinct mass. SPLEEN: No splenic enlargement. No lesion seen. ADRENALS: No nodule. No thickening. KIDNEYS/BLADDER: No hydronephrosis. No nephrolithiasis. Subcentimeter renal cortical stone the left . BOWEL: Normal appendix. Normal bowel caliber. No inflammation. LYMPH NODES: No greater than 1cm abdominal or pelvic lymph nodes are appreciated. AORTA: No significant abnormality. OSSEOUS STRUCTURES: No significant abnormality is seen. OTHER: No significant additional abnormality is seen. IMPRESSION: 1. Mild hepatomegaly with underlying fatty hepatic infiltration and cholecystectomy change. 2. Small left renal cortical cyst.
--- NOTE | 2020-12-15 08:29 | CT ---
EXAMINATION TYPE: CT soft tissue neck w con DATE OF EXAM: 12/14/2020 COMPARISON: 12/14/2020 HISTORY: Dysphagia, can't tolerate food/liquids, caught in throat. CT DLP: 490.20 mGycm CONTRAST: CT scan of the neck is performed with IV Contrast, patient injected with 100 mL of Isovue 300. Contrast enhanced CT of the neck was performed from the skull base through the lung apices. AIRWAY: There is prominence of the bilateral tonsillar pillars. There is no evidence for airway obstr uction. No abscess seen. The remainder of the airway is unremarkable and patent. No evidence for mass at the base of the tongue. Joint false vocal cords appear symmetric. No mass seen. SALIVARY GLANDS: The submandibular and parotid glands are free of mass or inflammatory process. THYROID GLAND: No nodules or masses seen. LYMPH NODES: No adenopathy seen greater than 1cm. LUNG APICES: No nodule or mass is seen. OTHER: Vascular structures are patent. Postoperative changes cervical spine. Large ventral bony spur at C4-5. No abscess seen. IMPRESSION: Nonspecific prominence of the bilateral tonsillar pillars. Examination is otherwise unremarkable.
== END | disposition home or self-care (01) ==
LOC: RADCTMAIN 17:16
PROVIDERS: ATTEND Internal Medicine
DX: K76.89 Other specified diseases of liver (principal); R16.0 Hepatomegaly, not elsewhere classified; N28.1 Cyst of kidney, acquired; Z90.49 Acquired absence of other specified parts of digestive tract
CPT/HCPCS: 70491; 71260; 74160; Q9967

== ENCOUNTER → 2021-01-26 | Outpatient (CLI) | payer MEDICARE, OTHER ==
--- NOTE | 2021-01-27 09:18 | MM ---
Reason for exam: additional evaluation requested from prior study. Last mammogram was performed 5 months ago. History: Patient is postmenopausal. Benign MG stereo VAD BX LT of the left breast, February 11, 2020. Benign ultrasound-guided core biopsy of the left breast. 2 benign excisional biopsies of the left breast. Physical Findings: Nurse did not find any significant physical abnormalities on exam. MG 3D Diag Mammo W/Cad MICHAEL Bilateral CC and MLO view(s) were taken. Prior study comparison: August 15, 2020, left breast MG 3d diag mammo w/cad LT. January 07, 2020, left breast MG work up mamm w CAD LT. The breast tissue is heterogeneously dense. This may lower the sensitivity of mammography. There is chronic nodularity bilaterally. There is no discrete abnormality. No significant new findings when compared with previous films. These results were verbally communicated with the patient and result sheet given to the patient on 01/26/21. ASSESSMENT: Benign, BI-RAD 2 RECOMMENDATION: Routine screening mammogram of both breasts in 1 year.
== END | disposition home or self-care (01) ==
LOC: RADMAMWWP 12:56
PROVIDERS: ATTEND Surgery
DX: R92.8 Other abnormal and inconclusive findings on diagnostic imaging of breast (principal); Z78.0 Asymptomatic menopausal state
CPT/HCPCS: 77066; G0279; 77062

== ENCOUNTER → 2021-06-07 | Outpatient (CLI) | payer MEDICARE, OTHER ==
--- NOTE | 2021-06-07 17:21 | US ---
EXAMINATION TYPE: US abdomen complete DATE OF EXAM: 06/07/2021 COMPARISON: CT chest abdomen 12/14/2020 CLINICAL HISTORY: R10.84 GENERALIZED ABDOMINAL PAIN. Abdomen pain and N/V x 1 year, history of cholec ystectomy EXAM MEASUREMENTS: Liver Length: 18.4 cm CBD: 0.7 cm Spleen: 10.5 cm Right Kidney: 10.2 x 4.4 x 5.0 cm Left Kidney: 10.4 x 4.9 x 4.6 cm Pancreas: visualized portions wnl, limited by overlying midline bowel gas Liver: enlarged, attenuating, heterogeneous, increased echogenicity Gallbladder: surgically absent Evidence for sonographic De Leon's sign: no CBD: visualized portions wnl, limited by overlying bowel gas Spleen: visualized portions wnl, limited by overlying bowel gas Right Kidney: wnl Left Kidney: 1.3cm hyperechoic area superior pole Upper IVC: wnl Abd Aorta: wnl IMPRESSION: 1. Hyperechoic lesion within the superior left kidney cortex. Finding is nonspecific. Additional work up with pre and postcontrast CT through the kidneys is recommended. 2. Hepatomegaly
== END | disposition home or self-care (01) ==
LOC: RADUSWWP 08:01
PROVIDERS: ATTEND Internal Medicine
DX: N28.89 Other specified disorders of kidney and ureter (principal); R16.0 Hepatomegaly, not elsewhere classified
CPT/HCPCS: 76700

== ENCOUNTER → 2021-08-03 | Outpatient (CLI) | payer MEDICARE, OTHER ==
--- NOTE | 2021-08-03 09:10 | XR ---
EXAMINATION TYPE: XR cervical spine comp DATE OF EXAM: 08/03/2021 COMPARISON: NONE HISTORY: Pain TECHNIQUE: Four views are submitted. FINDINGS: The odontoid is intact. There are no compression deformities. The prevertebral soft tissue structur es are within normal limits. Postsurgical changes are seen. Degenerative disc disease at level C3-C7 with hypertrophic spurring particularly noted at C4-C5. Multilevel mild facet arthropathy. Suspect m ultilevel mild foraminal encroachment with severe encroachment C5-C6 bilaterally. IMPRESSION: 1. Postoperative change with additional multilevel degenerative and hypertrophic changes. 2. Severe bilateral foraminal encroachment C5-C6..
--- NOTE | 2021-08-03 09:12 | XR ---
EXAMINATION TYPE: XR shoulder complete RT DATE OF EXAM: 08/03/2021 COMPARISON: NONE HISTORY: Pain TECHNIQUE: Three views are submitted. FINDINGS: Widening of the AC joint with resorption of the distal clavicle and a large area of deformity noted w hich likely is related the patient's history of previous trauma. Alternatively could be congenital. P ost rotator cuff surgery noted. Findings are similar to a prior chest x-ray of 01/01/2019. IMPRESSION: 1. Marked deformity of the distal clavicle with widening of the AC joint appears stable and chronic c orrelate for previous surgery, trauma and AC joint separation or injury. 2. post rotator cuff surgery.
--- NOTE | 2021-08-03 09:14 | XR ---
EXAM TYPE: LUMBAR SPINE X RAY SERIES COMPARISON: 11/15/2018 HISTORY: Pain TECHNIQUE: 4 views are submitted. FINDINGS: Alignment is anatomic. The pedicles are intact. The transverse processes are intact. There is no s pondylolisthesis. Question surgical clips gallbladder fossa. Hypertrophic spurring at virtually all levels anteriorly with facet arthropathy at levels L3-S1. Degenerative disc disease L5-S1. IMPRESSION: 1. Multilevel lower lumbar spine facet arthropathy suggesting foraminal protrusion similar to prior e xam. 2. Hypertrophic spurring at multiple levels with degenerative disc disease L5-S1.
--- NOTE | 2021-08-03 09:36 | CT ---
EXAMINATION TYPE: CT sinus wo con DATE OF EXAM: 08/03/2021 COMPARISON: 2015 CT scan HISTORY: Recurrent sinusitis CT DLP: 630 mGycm. Automated Exposure Control for Dose Reduction was Utilized. TECHNIQUE: CT scan of the sinuses is performed without contrast, axial images are obtained, coronal r eformatted images are also reviewed. FINDINGS: Deviated bony nasal septum convex to the right side. Paradoxical middle turbinates. Minimal mucosal t hickening of the right nasal fossa. Patent infundibulum and left ostiomeatal complex. Slightly oblite rated right ostiomeatal complex by the deviated bony nasal septum. Mucosal thickening of the left maxillary sinus. Minimal mucosal thickening of the left sphenoid sinus compartment. Unremarkable right maxillary sinus, right sphenoid sinus compartment, ethmoid air cells and frontal sinus. Patent sphenoethmoidal recesses. Hypopneumatized visualized mastoid air cells. Unremarkable TMJs. Enlarged nasopharyngeal soft tissue, please correlate clinically as underlying lesion cannot be excluded. Unremarkable orbits. IMPRESSION: Mucosal thickening of the left maxillary sinus and left sphenoid sinus compartment as described above . Enlarged nasopharyngeal soft tissue, please correlate clinically as underlying lesion cannot be exclu ded. Other findings as described above.
== END | disposition home or self-care (01) ==
LOC: RADCTMAIN 08:08
PROVIDERS: ATTEND Internal Medicine
DX: M47.812 Spondylosis without myelopathy or radiculopathy, cervical region (principal); M99.71 Connective tissue and disc stenosis of intervertebral foramina of cervical region; M19.011 Primary osteoarthritis, right shoulder; M47.816 Spondylosis without myelopathy or radiculopathy, lumbar region; M51.26 Other intervertebral disc displacement, lumbar region; J34.89 Other specified disorders of nose and nasal sinuses
CPT/HCPCS: 70486; 72050; 72100

== ENCOUNTER 2021-09-26 10:20 | Emergency (ER) | payer MEDICARE, OTHER ==
[2021-09-26 10:44] VITALS: BP 129/90; PULSE 90; RESP 18; TEMP 98.4
[2021-09-26] MEDS ORDERED: LIDOCAINE 5% PATCH TOPICAL STA (10:46)
[2021-09-26] MEDS ORDERED: methylPREDNISolone SOD SUCCI 125 MG/2 ML VIAL IM ONE (10:46)
[2021-09-26] MEDS ORDERED: HYDROmorphone 0.5 MG/0.5 ML SYRINGE IM STA (10:48)
[2021-09-26] MEDS ORDERED: ONDANSETRON ODT 4 MG TAB PO STA (10:50)
--- NOTE | 2021-09-26 11:43 | XR ---
Lumbosacral spine HISTORY: Trauma 2 days prior and pain 5 views of the lumbosacral spine correlated the lumbar spine 08/03/2021 Surgical clip again noted in the right upper quadrant. Lumbar vertebral bodies show stable height, alignment, and bone mineralization. There is partial sacr alization of L5. Multilevel spondylosis is present. No evident spondylolysis or spondylolisthesis. Lo ss of disc height at L4-5 and possibly L3-4, sclerosis in the posterior elements are noted. Atheroscl erotic vascular calcifications present in the aorta distribution. IMPRESSION: Degenerative disc disease and facet arthropathy. No acute fracture or subluxation is evid ent. Lumbar MRI may be of benefit.
--- NOTE | 2021-09-26 11:49 | ED ---
Back Pain HPI - General Chief Complaint: Back Pain/Injury Stated Complaint: Broken tailbone Time Seen by Provider: 09/26/21 10:33 Source: patient, family Limitations: no limitations - History of Present Illness Initial Comments: Patient is a 56-year-old female who presents to the emergency department with a chief complaint of lower back pain. Patient states she was standing on a ladder approximately 2 feet tall on Saturday when the ladder collapsed and caused her to fall onto her lower back. Patient endorses severe pain in the tailbone region with numbness and tingling down her left leg all the way to her toes. Pain is worsened with twisting of the back. She denies leg weakness. Denies numbness and tingling in the groin and buttock region. Denies loss of bowel and bladder control. - Related Data Home Medications Medication Instructions Recorded Confirmed [place] Carbonate 300 mg PO HS 08/28/16 01/03/21 Atorvastatin [Lipitor] 20 mg PO HS 07/24/18 01/03/21 Prazosin HCl 5 mg PO HS 07/24/18 01/03/21 Multivitamins, Thera [Multivitamin 1 tab PO DAILY 11/15/18 01/03/21 (formulary)] clonazePAM [KlonoPIN] 1 mg PO HS 11/15/18 01/03/21 Mirtazapine 45 mg PO HS 01/01/19 01/03/21 Montelukast [Singulair] 10 mg PO HS 01/01/19 01/03/21 OLANZapine [ZyPREXA] 5 mg PO HS 01/01/19 01/03/21 Benztropine Mesylate [Cogentin] 1.5 mg PO TID 09/29/19 01/03/21 Ibuprofen [Motrin] 600 mg PO Q8HR PRN 10/26/19 01/03/21 Divalproex Sodium 250 mg PO BID 01/26/20 01/03/21 clonazePAM [KlonoPIN] 0.5 mg PO DAILY 01/26/20 01/03/21 Previous Rx's Medication Instructions Recorded HYDROcodone/APAP 10-325MG [[place] 1 tab PO Q4HR PRN 3 Days #18 tab 09/26/21 10-325] Lidocaine 5% Patch [Lidoderm 5% 1 patch TOPICAL DAILY 7 Days #7 09/26/21 Patch] patch predniSONE 50 mg PO DAILY #5 tab 09/26/21 Allergies Allergy/AdvReac Type Severity Reaction Status Date / Time pregabalin [From Lyrica] Allergy Unknown Itching/Hola Verified 09/26/21 10:30 sea/Vomitin g/Headache morphine Allergy Itching/Hola Verified 09/26/21 10:30 sea/Vomitin g/Headache Review of Systems ROS Statement: Those systems with pertinent positive or pertinent negative responses have been documented in the HPI. ROS Other: All systems not noted in ROS Statement are negative. 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-headaches & some memory loss, chronic right hip pain, tremors History of Any Multi-Drug Resistant Organisms: None Reported Past Surgical History: Appendectomy, Bladder Surgery, Breast Surgery, Section, Ear Surgery, Hysterectomy, Orthopedic Surgery Additional Past Surgical History / Comment(s): colonoscopy, neck surgery, right shoulder surgery, breast biopsies x3, PAIN CLINIC PROCEDURES, LEFT BREAST BIOPSY Past Anesthesia/Blood Transfusion Reactions: No Reported Reaction Past Psychological History: Anxiety, Bipolar, Depression Smoking Status: Former smoker - Past Family History Mother Family Medical History: Diabetes Mellitus Father Family Medical History: COPD General Exam Limitations: no limitations General appearance: alert, in no apparent distress Head exam: Present: atraumatic, normocephalic, normal inspection Eye exam: Present: normal appearance, PERRL, EOMI. Absent: scleral icterus, conjunctival injection, periorbital swelling Respiratory exam: Present: normal lung sounds bilaterally. Absent: respiratory distress, wheezes, rales, rhonchi, stridor Cardiovascular Exam: Present: regular rate, normal rhythm, normal heart sounds. Absent: systolic murmur, diastolic murmur, rubs, gallop, clicks Back exam: Present: normal inspection, full ROM, paraspinal tenderness (left lumbar), vertebral tenderness (lumbosacral spine) Neurological exam: Present: alert, oriented X3, CN II-XII intact Expanded Motor strength exam: RLE: 5, LLE: 5 Psychiatric exam: Present: normal affect, normal mood Skin exam: Present: warm, dry, intact, normal color. Absent: rash Course Vital Signs 09/26/21 10:25 Temperature 98.4 F Pulse Rate 90 Respiratory 18 Rate Blood Pressure 129/90 O2 Sat by Pulse 98 Oximetry Medical Decision Making - Medical Decision Making This is a 56-year-old female who presents with lower back pain with radicular left lower extremity symptoms. Thorough history and examination were performed. Patient appears to be in pain. No saddle anesthesia or loss of bowel/bladder dysfunction. There is tenderness with palpation of the lumbosacral spine as well as the left lumbar paravertebral muscles. Full range of motion of the spine however bilateral rotation elicits significant pain. Full range of motion and 5/5 strength of the lower extremities. Lumbar sacral x-ray shows degenerative disc disease and facet arthropathy with no acute fracture or subluxation. Patient controlled with Dilaudid, lidocaine patch, and Solu-Medrol. Results discussed with patient. Patient will be discharged with prednisone and lidocaine patches. I'll also send her home with short course of [place] for severe pain. She will be referred to park interpretive specialist whom she will report to if symptoms do not improve in 1-2 weeks. Return parameters discussed. Patient verbalizes understanding and is agreeable to this plan. Dr. Snell is my attending. Disposition Clinical Impression: Mechanical back pain Disposition: HOME SELF-CARE Condition: Good Instructions (If sedation given, give patient instructions): Acute Low Back Pain (ED) Additional Instructions: Take medication as directed. Apply lidocaine patches to most painful region of the spine. Use a warm compress will help symptoms as well. Please schedule an appointment with park interpretive specialist in 1-2 weeks if symptoms do not improve. Return to the emergency department if you experience new, concerning, or worsening symptoms. Prescriptions: Lidocaine 5% Patch [Lidoderm 5% Patch] 1 patch TOPICAL DAILY 7 Days #7 patch HYDROcodone/APAP 10-325MG [[place] 10-325] 1 tab PO Q4HR PRN 3 Days #18 tab PRN Reason: Pain predniSONE 50 mg PO DAILY #5 tab Is patient prescribed a controlled substance at d/c from ED?: Yes If prescribed controlled substance>3 days was MAPS reviewed?: Yes Referrals: Michelle Oliveros MD [Primary Care Provider] - 1-2 days Robert Jurado DO [Doctor of Osteopathic Medicine] - 1-2 days Time of Disposition: 11:58
== END 2021-09-26 12:08 | disposition home or self-care (01) ==
LOC: EC 10:20
DX: M54.59 Other low back pain (principal); J44.9 Chronic obstructive pulmonary disease, unspecified; E78.5 Hyperlipidemia, unspecified; F41.9 Anxiety disorder, unspecified; F31.9 Bipolar disorder, unspecified; Z87.891 Personal history of nicotine dependence; Z88.8 Allergy status to other drugs, medicaments and biological substances; Z88.6 Allergy status to analgesic agent; Z79.899 Other long term (current) drug therapy; W11.XXXA Fall on and from ladder, initial encounter
CPT/HCPCS: 72110; 99284; 96372 ×2; J2930; J1170

== ENCOUNTER 2022-07-17 09:04 | Inpatient (IN) | payer MEDICARE, MEDICAID ==
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
[2022-07-17 13:14] LABS: Appearance,Urine Cloudy (Clear); Bacteria,Urine Occasional /hpf; Bilirubin,Urine Negative (Negative); Blood,Urine Moderate (Negative); Color,Urine Light Yellow; Glucose,Urine (UA) Negative (Negative); Ketones,Urine Negative (Negative); Leukocyte Esterase,Urine Small (Negative); Mucus,Urine Rare /hpf; Nitrite,Urine Positive (Negative); PH, Urine 6.5 (5.0-8.0); Protein,Urine Negative (Negative); RBC,Urine 1 /hpf (0-5); Specific Gravity,Urine 1.009 (1.001-1.035); Squamous Epithelial Cell,Urine 4 /hpf (0-4); Urobilinogen,Urine <2.0 mg/dL (<2.0); WBC,Urine 8 /hpf (0-5)
[2022-07-17 13:24] LABS: Amphetamine Screen,Urine Not Detected (NotDetected); Barbiturate Screen,Urine Not Detected (NotDetected); Benzodiazepines Screen,Urine Not Detected (NotDetected); Cocaine Screen,Urine Not Detected (NotDetected); Methadone Screen, Urine Not Detected (NotDetected); Opiate Screen,Urine Not Detected (NotDetected); Oxycodone Screen, Urine Not Detected (NotDetected); Phencyclidine Screen,Urine Not Detected (NotDetected); Tricyclic Antidepressant,Urine Detected (NotDetected); Urn Cannabinoid Scrn Detected (NotDetected)
[2022-07-17] MEDS ORDERED: LIDOCAINE 5% PATCH TOPICAL ONE (14:11)
[2022-07-17] MEDS ORDERED: NICOTINE 14MG/24HR PATCH TRANSDERM STA (15:24)
[2022-07-17 16:10] LABS: HCT 43.6 % (34.0-46.0); HGB 14.4 gm/dL (11.4-16.0); MCH 30.5 pg (25.0-35.0); MCV 92.3 fL (80.0-100.0); Platelet Count 249 k/uL (150-450); RBC 4.72 m/uL (3.80-5.40); RDW 12.5 % (11.5-15.5); WBC 16.9 k/uL (3.8-10.6)
[2022-07-17 16:22] LABS: ALT 21 U/L (4-34); AST 25 U/L (14-36); African American GFR (CKD) >90 (>60 ml/min/1.73 sqM); Albumin 4.7 g/dL (3.5-5.0); Alkaline Phosphatase 78 U/L (38-126); Anion Gap 9 mmol/L; Blood Urea Nitrogen 13 mg/dL (7-17); Calcium 9.7 mg/dL (8.4-10.2); Carbon Dioxide 22 mmol/L (22-30); Chloride 108 mmol/L (98-107); Glucose 102 mg/dL (74-99); Non-African American GFR(CKD) >90 (>60 ml/min/1.73 sqM); Potassium 3.9 mmol/L (3.5-5.1); Sodium 139 mmol/L (137-145); Total Bilirubin 0.6 mg/dL (0.2-1.3); Total Protein 7.5 g/dL (6.3-8.2)
[2022-07-17] MEDS ORDERED: FLUTICASONE 50MCG/SPRAY NASAL 16GM EA NOSTRIL PRN (17:51)
[2022-07-17] MEDS ORDERED: MAGNESIUM HYDROXIDE 2,400 MG/10 ML CUP PO PRN (17:52)
[2022-07-17] MEDS ORDERED: haloperidoL 5 MG TAB PO PRN (17:52)
[2022-07-17] MEDS ORDERED: IBUPROFEN 600 MG TAB PO PRN (17:52)
[2022-07-17] MEDS ORDERED: HALOPERIDOL LACTATE 5 MG/ML 1 ML VIAL IM PRN (17:52)
[2022-07-17] MEDS ORDERED: MAG HYDROX/AL HYDROX/SIMETH 30 ML CUP PO PRN (17:52)
[2022-07-17] MEDS ORDERED: LORazepam 2 MG/ML INJ IM PRN (17:52)
[2022-07-17] MEDS: LITHIUM CARBONATE 300 MG CAP PO SCH (21:11)
[2022-07-17] MEDS: LORazepam 1 MG TAB PO PRN (21:11)
[2022-07-17] MEDS: ATORVASTATIN 20 MG TAB PO SCH (21:12)
[2022-07-17] MEDS: ACETAMINOPHEN TAB 325 MG TAB PO PRN (21:36)
[2022-07-18] MEDS: LORazepam 1 MG TAB PO PRN ×2 (04:43→22:55)
[2022-07-18] MEDS: NICOTINE 14MG/24HR PATCH TRANSDERM SCH (08:28)
[2022-07-18] MEDS: PANTOPRAZOLE 40 MG TABLET PO SCH (08:28)
[2022-07-18] MEDS: LITHIUM CARBONATE 300 MG CAP PO SCH (08:28)
[2022-07-18] MEDS: LORATADINE 10 MG TAB PO SCH (08:28)
[2022-07-18] MEDS ORDERED: FLUoxetine HCL 20 MG CAP PO SCH (09:00)
[2022-07-18] MEDS ORDERED: cloNIDine HCL 0.1 MG TAB PO STA (10:35)
[2022-07-18] MEDS: ACETAMINOPHEN TAB 325 MG TAB PO PRN (11:38)
[2022-07-18 11:45] LABS: Lithium 0.5 mmol/L
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
[2022-07-18] MEDS: cloNIDine HCL 0.1 MG TAB PO SCH (20:41)
[2022-07-18] MEDS: LITHIUM CARBONATE 150 MG CAP PO SCH (20:42)
[2022-07-18] MEDS: ATORVASTATIN 20 MG TAB PO SCH (20:42)
[2022-07-18] MEDS ORDERED: MIRTAZAPINE 15 MG TAB PO SCH (21:00)
--- NOTE | 2022-07-19 00:28 | P.CONS ---
History of Present Illness - Reason for Consult Consult date: 07/18/22 - History of Present Illness The patient is a 56-year-old female with a PMH of bipolar disorder who had presented to the emergency room with complaints of depression and auditory hallucinations. The patient was admitted to the mental health unit where she was seen and evaluated. The patient reports that she has been feeling depressed and "out of control". She attributes it to recently having lost her physician due to an insurance change. She reports smoking 1-1/2 pack of cigarettes daily with recreational marijuana use. She also states that she has been sober from alcohol for the past 14 years. She denied any physical complaints at the time of interview. Denied experiencing chest discomfort, shortness of breath, fever, chills, cough, nausea, vomiting, abdominal pain, diarrhea. Review of systems: Pertinent positives and negatives as discussed in HPI, a complete review of systems was performed and all other systems are negative. Physical examination: General: non toxic, no distress, appears at stated age, overweight Derm: no unusual rashes/lesions, no unusual ecchymoses, warm, dry Head: atraumatic, normocephalic, symmetric Eyes: EOMI, no lid lag, anicteric sclera ENT: Nose and ears atraumatic, no thrush, no pharyngeal erythema Neck: trachea midline, supple Mouth: no lip lesion, mucus membranes moist Cardiovascular: S1S2 reg, no murmur, no edema Lungs: CTA bilateral, no rhonchi, no rales , no accessory muscle use Abdominal: soft, nontender to palpation, no guarding Ext: no gross muscle atrophy, no contractures, Neuro: No gross focal neuro deficits noted Psych: Alert, oriented, appropriate affect Assessment: Leukocytosis Low TSH Marijuana abuse Depression and suicidal ideation Imaging: None performed Data Review: Laboratory evaluation reviewed with WBC count 16.9, TSH 0.236, UA unremarkable, and urine toxicology positive for marijuana. Plan: Leukocytosis likely due to acute stressor. No signs of active infection at this time Check T4 and T3 levels Advised on importance of cessation for marijuana use Defer management of depression and suicidal ideation to the primary psychiatry service Thank you for allowing us to participate in the care of this patient. We will follow peripherally. Do not hesitate to contact us with questions. Someone can be reached from the [facility] hospitalist group at all hours of the day at [phone]. 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-headaches & some memory loss, chronic right hip pain, tremors History of Any Multi-Drug Resistant Organisms: None Reported Past Surgical History: Appendectomy, Bladder Surgery, Breast Surgery, Section, Ear Surgery, Hysterectomy, Orthopedic Surgery Additional Past Surgical History / Comment(s): colonoscopy, neck surgery, right shoulder surgery, breast biopsies x3, PAIN CLINIC PROCEDURES, LEFT BREAST BIOPSY Past Anesthesia/Blood Transfusion Reactions: No Reported Reaction Past Psychological History: Anxiety, Bipolar, Depression Smoking Status: Former smoker Past Alcohol Use History: None Reported Past Drug Use History: Marijuana - Past Family History Mother Family Medical History: Diabetes Mellitus Father Family Medical History: COPD Medications and Allergies Home Medications Medication Instructions Recorded Confirmed Type RX: [place] Carbonate 300 mg PO BID 08/28/16 07/17/22 History Atorvastatin [Lipitor] 20 mg PO HS 07/24/18 07/17/22 History Cetirizine HCl [Zyrtec] 10 mg PO DAILY 07/17/22 07/17/22 History Esomeprazole Magnesium [NexIUM] 20 mg PO DAILY 07/17/22 07/17/22 History Fluticasone Nasal [place] [Flonase 1 spray EA NOSTRIL DAILY PRN 07/17/22 07/17/22 History Nasal [place]] RX: FLUoxetine HCL [PROzac] 10 mg PO DAILY 07/17/22 07/17/22 History estradioL [Estrace] 0.5 mg PO HS 07/17/22 07/17/22 History Allergies Allergy/AdvReac Type Severity Reaction Status Date / Time pregabalin [From Lyrica] Allergy Unknown Itching/Hola Verified 07/17/22 10:19 sea/Vomitin g/Headache morphine Allergy Itching/Hola Verified 07/17/22 10:19 sea/Vomitin g/Headache Physical Exam Vitals: Vital Signs Temp Pulse Resp BP 07/18/22 05:34 97.3 F L 99 18 131/80 Results CBC & Chem 7: 07/17/22 15:56 07/17/22 15:56 Labs: Abnormal Lab Results - Last 24 Hours (Table) 07/18/22 Range/Units 06:51 TSH 0.236 L (0.465-4.680) mIU/L
[2022-07-19 01:31] VITALS: RESP 15; TEMP 98.6
[2022-07-19 02:51] LABS: Chol/HDL Ratio 2.75 Ratio; LDL Cholesterol,Calculated 51.9 mg/dL (0.0-131.0)
[2022-07-19] MEDS: LORazepam 1 MG TAB PO PRN (05:13)
[2022-07-19] MEDS: PANTOPRAZOLE 40 MG TABLET PO SCH (08:28)
[2022-07-19] MEDS: LITHIUM CARBONATE 150 MG CAP PO SCH (08:28)
[2022-07-19] MEDS: LORATADINE 10 MG TAB PO SCH (08:28)
[2022-07-19] MEDS: cloNIDine HCL 0.1 MG TAB PO SCH (08:29)
[2022-07-19] MEDS: NICOTINE 14MG/24HR PATCH TRANSDERM SCH (08:31)
[2022-07-19 08:34] VITALS: BP 149/81; PULSE 94
[2022-07-19] MEDS ORDERED: FLUoxetine HCL 10 MG CAP PO SCH (09:00)
[2022-07-19] MEDS ORDERED: LOPERAMIDE 2 MG CAP PO STA (09:57)
[2022-07-19] MEDS ORDERED: LIDOCAINE 5% PATCH TOPICAL SCH (11:00)
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
== END 2022-07-19 15:21 | disposition home or self-care (01) | DRG 885 ==
LOC: EC 09:04 → 3MHU 17:42
PROVIDERS: ADMIT Psychiatry & Neurology Psychiatry; ATTEND Psychiatry & Neurology Psychiatry
DX: F31.81 Bipolar II disorder (principal); R45.851 Suicidal ideations; F10.21 Alcohol dependence, in remission; J44.9 Chronic obstructive pulmonary disease, unspecified; F12.10 Cannabis abuse, uncomplicated; Z20.822 Contact with and (suspected) exposure to COVID-19; F43.10 Post-traumatic stress disorder, unspecified; D72.829 Elevated white blood cell count, unspecified; E78.5 Hyperlipidemia, unspecified; G89.29 Other chronic pain; M54.9 Dorsalgia, unspecified; M25.551 Pain in right hip; G47.00 Insomnia, unspecified; R41.3 Other amnesia; F17.210 Nicotine dependence, cigarettes, uncomplicated; T50.916A Underdosing of multiple unspecified drugs, medicaments and biological substances, initial encounter; Z91.138 Patient's unintentional underdosing of medication regimen for other reason; Z79.899 Other long term (current) drug therapy; Z87.820 Personal history of traumatic brain injury; Z59.7 Insufficient social insurance and welfare support; Z62.810 Personal history of physical and sexual abuse in childhood; Z78.0 Asymptomatic menopausal state; Z88.5 Allergy status to narcotic agent; Z88.8 Allergy status to other drugs, medicaments and biological substances; Z71.51 Drug abuse counseling and surveillance of drug abuser; Z71.41 Alcohol abuse counseling and surveillance of alcoholic; Z71.6 Tobacco abuse counseling
CPT/HCPCS: 36415; 80053; 80061; 80178; 80306; 81001; 82075; 83036; 84436; 84439; 84443; 84480; 85027; 87635; 99285

== ENCOUNTER → 2022-10-04 | Outpatient (CLI) | payer MEDICARE, OTHER ==
--- NOTE | 2022-10-09 14:25 | MR ---
EXAMINATION TYPE: MR lumbar spine wo con DATE OF EXAM: 10/04/2022 COMPARISON: 01/03/2019 HISTORY: Numbness in toes, tops of feet and up shins. TECHNIQUE: Multiplanar, multisequence images of the lumbar spine were acquired without IV contrast. L1-L2: Normal disc appearance without desiccation. No herniation, protrusion or disc bulging. No ca nal stenosis is present. Foramina are patent bilaterally. L2-L3: Normal disc appearance without desiccation. No herniation, protrusion or disc bulging. No ca nal stenosis is present. Foramina are patent bilaterally. L3-L4: There is mild disc desiccation compatible with degenerative disc disease. Posterior disc bulge with minimal effacement ventral thecal sac. No evidence for disc herniation or protrusion. No centra l stenosis or foraminal encroachment. L4-L5: There is mild disc desiccation compatible with degenerative disc disease. Posterior disc bulge with minimal effacement ventral thecal sac. No evidence for disc herniation or protrusion. No centra l stenosis or foraminal encroachment. L5-S1: There is mild disc desiccation compatible with degenerative disc disease. Posterior disc bulge with minimal effacement ventral thecal sac. No evidence for disc herniation or protrusion. No centra l stenosis or foraminal encroachment. Lumbar segments are intact. No paraspinal masses are identified. Conus medullaris has a normal appe arance. There appears to be a transitional lumbar vertebral segment with partial sacralization of S1 and rudimentary S1-S2 disc. IMPRESSION: 1. Mild stable degenerative disc disease and minimal disc bulging.
== END | disposition home or self-care (01) ==
LOC: RADMRIMAIN 15:04
PROVIDERS: ATTEND Internal Medicine
DX: M51.36 Other intervertebral disc degeneration, lumbar region (principal)
CPT/HCPCS: 72148

== ENCOUNTER → 2022-10-11 | Outpatient (CLI) | payer MEDICARE, OTHER ==
--- NOTE | 2022-10-11 13:33 | XR ---
EXAMINATION TYPE: XR chest 2V DATE OF EXAM: 10/11/2022 COMPARISON: 01/01/2019 TECHNIQUE: PA and lateral views submitted. HISTORY: Shortness of breath FINDINGS: The lungs are clear and there is no pneumothorax, pleural effusion, or focal pneumonia. Heart size normal and no overt failure. Osseous structures demonstrate hypertrophic and degenerative changes of the spine. Postsurgical change right shoulder. Hyperinflation suggests COPD. IMPRESSION: 1. No acute process. Correlate for COPD.
--- NOTE | 2022-10-12 10:10 | MM ---
Reason for Exam: Screening (asymptomatic). Last mammogram was performed 1 year(s) and 8 month(s) ago. Patient History: Menarche at age 17. First Full-Term at age 22. Hysterectomy at age 32. Postmenopausal. Patient used Hormonal Contraceptives for 10 years. Benign Excisional Biopsy on the left side. Benign Excisional Biopsy on the left side. Benign Ultrasound-Guided Core Biopsy on the left side. 02/11/2020, Benign Core Biopsy on the left side. Risk Values: Patricia 5 year model risk: 1.5%. NCI Lifetime model risk: 9.8%. Prior Study Comparison: 01/07/2020 Left Diagnostic Mammogram, [facility]. 08/15/2020 Left Diagnostic Mammogram, [facility]. 01/26/2021 Bilateral Diagnostic Mammogram, [facility]. Tissue Density: The breast tissue is heterogeneously dense. This may lower the sensitivity of mammography. Findings: Analyzed By CAD. Pattern appears symmetrical and stable. A core marker is within the left breast. Benign spherical calcifications within the left breast. Some benign punctate calcifications are within the right breast. No significant interval changes. There is chronic nodularity within the right breast No suspicious groups of microcalcifications, spiculated or lobular masses, architectural distortion or other secondary signs of malignancy are mammographically apparent. Overall Assessment: Benign, BI-RAD 2 Management: Screening Mammogram of both breasts in 1 year. A negative mammogram report should not preclude additional follow up of suspicious palpable abnormalities. Patient should continue monthly self breast exam. A clinical breast exam by your physician is recommended on an annual basis and results should be correlated with mammographic findings. Electronically signed and approved by: Justice Downey D.O. Radiologis
== END | disposition home or self-care (01) ==
LOC: RADMAMWWP 12:54
PROVIDERS: ATTEND Internal Medicine
DX: Z12.31 Encounter for screening mammogram for malignant neoplasm of breast (principal); R06.02 Shortness of breath; Z78.0 Asymptomatic menopausal state
CPT/HCPCS: 71046; 77063; 77067

== ENCOUNTER → 2022-11-01 | Outpatient (CLI) | payer MEDICARE, OTHER | END | disposition home or self-care (01) | LOC: RADCTMAIN 12:57 | PROVIDERS: ATTEND Internal Medicine | DX: Z53.9 Procedure and treatment not carried out, unspecified reason (principal) ==

== ENCOUNTER → 2022-12-07 | Outpatient (CLI) | payer MEDICARE, OTHER ==
--- NOTE | 2022-12-07 09:02 | XR ---
EXAMINATION TYPE: XR chest 2V DATE OF EXAM: 12/07/2022 COMPARISON: 10/11/2022 TECHNIQUE: PA and lateral views submitted. HISTORY: Shortness of breath FINDINGS: The lungs are clear and there is no pneumothorax, pleural effusion, or focal pneumonia. Heart size normal and no overt failure. Osseous structures demonstrate hypertrophic and degenerative changes of the spine. Postsurgical change right shoulder with evidence of previous trauma. Emphysematous changes noted. IMPRESSION: 1. No acute process.
== END | disposition home or self-care (01) ==
LOC: RADXRMAIN 08:02
PROVIDERS: ATTEND Internal Medicine
DX: R06.02 Shortness of breath (principal); R05.9 Cough, unspecified
CPT/HCPCS: 71046

== ENCOUNTER 2023-02-01 10:36 | Day surgery (SDC) | payer MEDICARE, OTHER ==
[2023-01-29 15:27] VITALS: BMI 30.9
--- NOTE | 2023-02-01 01:35 | HP ---
HISTORY AND PHYSICAL CHIEF COMPLAINT: Laryngeal lesion. HISTORY OF PRESENT ILLNESS: This patient is a 57-year-old female, who was recently seen in my office with complaints of hoarseness and an abnormal finding on her CAT scan. The patient states that she used to smoke up to 2 packs of cigarettes per day, but is now down to less than one-half a pack of cigarettes per day. I urged her to continue to quit smoking. In addition, she states that she is a former alcoholic and has not had any alcoholic beverages to drink for 15 years. She denies any referred otalgia or dysphagia. She states that she has had a chronic cough. At the time that she was seen in my office, clinical examination including indirect laryngoscopy revealed that there was some asymmetry of the aryepiglottic fold with a possible lesion located in the area of the left true vocal cord. Because of the patient's history of heavy smoking and because of these findings, it was recommended that she undergo a suspension microlaryngoscopy with biopsy of laryngeal lesion under general anesthesia. PAST MEDICAL HISTORY: Reveals that the patient has no known allergies to medications. CURRENT MEDICATIONS: Include: 1. Tramadol. 2. Albuterol. 3. Symbicort. 4. Clonazepam. 5. Nexium. 6. Amlodipine. 7. Atorvastatin. 8. Paxil. REVIEW OF SYSTEMS: Reveals that the cardiovascular system is positive for hypertension, respiratory system is positive for COPD/emphysema, gastrointestinal system is positive for GERD (gastroesophageal reflux disorder). The metabolic endocrine system is positive for hypercholesterolemia. The remainder of the review of systems is unremarkable. PREVIOUS SURGERIES: Include benign breast biopsy, anterior cervical fusion, cholecystectomy, appendectomy, removal of a skin cancer. She is 3 para, 1 , 2 C-sections. PHYSICAL EXAMINATION: GENERAL: This patient is a 57-year-old female, who was alert and cooperative. HEENT: The patient is normocephalic. Tympanic membranes are normal. Middle ear spaces are free of any fluid or infection. Pupils are equal, round, and reactive to light and accommodation. Extraocular movements within normal limits. Intranasal examination reveals moderate septal deviation with compensatory hypertrophy of the inferior turbinates. Examination of oropharynx is unremarkable. Examination of the larynx, findings as described above and will not be repeated here. Palpation of the neck, cranial nerves II through XII, and the remainder of the head and neck exam are all within normal limits. CHEST/CARDIOVASCULAR: Both lung gilmore are clear to percussion and auscultation. The patient is in regular sinus rhythm. S1 and S2 are present without any murmurs. Peripheral pulses are bilaterally symmetrical. ABDOMEN: There is no evidence of any masses, megaly, or tenderness. The abdomen is soft. SKIN: Unremarkable. MUSCULOSKELETAL AND NEUROLOGICAL: Within normal limits. PELVIC AND RECTAL: Deferred at this time because the patient has this done on a regular basis at her family physician's office. The remainder of the physical exam is unremarkable. IMPRESSION: Laryngeal lesion. PLAN: The patient is scheduled to undergo a suspension microlaryngoscopy and biopsy of laryngeal lesion under general anesthesia in a.m. Attention, RNs in the pre-surgical area: I have not ordered any pre-surgical prophylactic antibiotics for this patient. If the pharmacy department sends any pre- surgical prophylactic antibiotics to the pre-surgical area for this patient, please cancel that order and return that medication to the pharmacy department. Also make sure that the patient's account is credited appropriately. I have ordered for the patient to receive 1000 mg of Ofirmev IV to be given once an intravenous line has been established. I have discussed the risks, benefits and alternative therapies for the above-mentioned procedure and for both sedation/analgesia as well as necessary blood product administration, if indicated, as they pertain to this patient. The patient has indicated her understanding and acceptance of the risks and procedures discussed. HARRY / MICHELLE: [id number] /
[~2023-02-01 10:36] MED LIST changes: -LACTATED RINGERS 1,000 ML IV SCH; +Pre Op ABX Message 1 EACH MISC MISCELLANE ONE
[2023-02-01] MEDS ORDERED: ACETAMINOPHEN IV (For NPO) 1,000 MG in EMPTY BAG 1 BAG IVPB ONE (11:40)
[2023-02-01] MEDS ORDERED: ONDANSETRON 4 MG/2 ML VIAL IVP ONE (12:39)
[2023-02-01] MEDS ORDERED: MIDAZOLAM 2 MG/2 ML VIAL IV PRN (12:39)
[2023-02-01] MEDS ORDERED: DEXAMETHASONE SOD PHOSPHATE 4 MG/ML 1 ML VIAL IV ONE (12:39)
[2023-02-01] MEDS ORDERED: fentaNYL (PF) 50 MCG/ML 2 ML AMP IV PRN (12:39)
[2023-02-01] MEDS ORDERED: SCOPOLAMINE 1 MG/72 HR PATCH TRANSDERM ONE (12:39)
[2023-02-01] MEDS ORDERED: LACTATED RINGERS 1,000 ML IV SCH (12:39)
[2023-02-01] MEDS ORDERED: ONDANSETRON 4 MG/2 ML VIAL ONE (12:40)
[2023-02-01] MEDS ORDERED: PROPOFOL 10 MG/ML 20 ML VIAL IV ONE (13:08)
[2023-02-01] MEDS ORDERED: ROCURONIUM 10 MG/ML (5 ML VIAL) IV ONE (13:08)
[2023-02-01] MEDS ORDERED: MIDAZOLAM 2 MG/2 ML VIAL ONE (13:08)
[2023-02-01] MEDS ORDERED: fentaNYL (PF) 50 MCG/ML 2 ML AMP ONE (13:08)
[2023-02-01] MEDS ORDERED: SUGAMMADEX SODIUM 200 MG/2 ML SDV IV ONE (13:08)
[2023-02-01] MEDS ORDERED: DEXAMETHASONE SOD PHOSPHATE 4 MG/ML 1 ML VIAL ONE (13:08)
[2023-02-01] MEDS ORDERED: LIDOCAINE 1% INJ 10MG/ML (20 ML MDV) ONE (13:08)
[2023-02-01 14:15] VITALS: RESP 16; TEMP 97.2
[2023-02-01 15:04] VITALS: BP 122/74; PULSE 75
--- NOTE | 2023-02-04 17:46 | OP ---
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 POSTOPERATIVE DIAGNOSIS: Chronic laryngitis with laryngeal lesion of the left aryepiglottic fold, final pathology is pending. ANESTHESIA: General. OPERATIVE PROCEDURE: Suspension microlaryngoscopy with biopsy of the left aryepiglottic fold. COMPLICATIONS: None. ESTIMATED BLOOD LOSS: Less than 1 mL. DESCRIPTION OF PROCEDURE: The patient was placed on the operating table in supine position. After uneventful induction and endotracheal intubation, satisfactory general anesthesia was obtained. Next, the patient's head was draped in the usual customary fashion. Following this, the laryngoscope was introduced into the patient's oropharynx and the entire hypopharynx including the right and left piriform sinuses, base of tongue, valleculae, and epiglottis were inspected and found to be free of any suspicious lesions. Next, the tip of the laryngoscope was placed and the laryngeal introitus was subsequently suspended on the patient's chest using the Lewy apparatus. Next, using the Zeiss operating microscope and under magnified visualization, one could see that there appeared to be an area where there was suspicious tissue located on the left aryepiglottic fold. Therefore, using a pair of up-biting microlaryngeal forceps, multiple biopsies of this area were taken and were sent to Pathology in formalin for permanent sectioning. The patient was given 10 mg of Decadron intraoperatively to reduce any postoperative laryngeal edema. At this point, the procedure was terminated. There were no intraoperative complications. The patient tolerated the procedure well and was returned to the recovery room in satisfactory condition. Final pathology is pending. MMODL / IJN: [id number] /
== END 2023-02-01 14:54 | disposition home or self-care (01) ==
LOC: OR 10:36
PROVIDERS: ATTEND Otolaryngology
DX: J37.0 Chronic laryngitis (principal); J44.9 Chronic obstructive pulmonary disease, unspecified; K21.9 Gastro-esophageal reflux disease without esophagitis; Z79.51 Long term (current) use of inhaled steroids; Z79.899 Other long term (current) drug therapy
CPT/HCPCS: 31536; 88305; J2250; J1100; J2405; J2001; J3010; J0131; J2704

== ENCOUNTER → 2023-02-19 | Outpatient (CLI) | payer MEDICARE, OTHER ==
--- NOTE | 2023-02-19 11:58 | MR ---
EXAMINATION TYPE: MR lumbar spine wo con DATE OF EXAM: 02/19/2023 COMPARISON: MR lumbar spine 10/04/2022, lumbosacral spine radiograph 09/26/2021 HISTORY: Lower back pain. TECHNIQUE: Multiplanar, multisequence images of the lumbar spine were acquired without IV contrast. FINDINGS: L1-L2: Normal disc appearance without desiccation. No herniation, protrusion or disc bulging. No ca nal stenosis is present. Foramina are patent bilaterally. L2-L3: Normal disc appearance without desiccation. No herniation, protrusion or disc bulging. No ca nal stenosis is present. Foramina are patent bilaterally. L3-L4: No evidence for disc herniation or protrusion. No central stenosis. Bilateral facet arthropath y without significant neural foraminal narrowing. L4-L5: Minimal broad-based disc bulge without significant central canal stenosis. No evidence for di sc herniation or protrusion. Bilateral facet arthropathy without significant neural foraminal narrowi ng. L5-S1: Minimal broad-based disc bulge without significant central canal stenosis. No evidence for di sc herniation or protrusion. Bilateral facet arthropathy without significant neural foraminal narrowi ng. Lumbar segments are intact. No paraspinal masses are identified. Conus medullaris has a normal appe arance. Multilevel disc desiccation. Redemonstration of transitional lumbar vertebral segment with pa rtial sacralization of S1 and rudimentary S1-S2 disc. IMPRESSION: Similar minimal multilevel degenerative disc disease and facet arthropathy. No evidence for significa nt central canal stenosis or disc herniation.
== END | disposition home or self-care (01) ==
LOC: RADMRIMAIN 10:20
PROVIDERS: ATTEND Internal Medicine
DX: M51.36 Other intervertebral disc degeneration, lumbar region (principal); M47.816 Spondylosis without myelopathy or radiculopathy, lumbar region
CPT/HCPCS: 72148

== ENCOUNTER → 2023-04-03 | Outpatient (CLI) | payer MEDICARE, OTHER ==
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
== END ==
LOC: 3 N SLEEP 10:25
PROVIDERS: ATTEND Internal Medicine
DX: G47.33 Obstructive sleep apnea (adult) (pediatric) (principal); G25.81 Restless legs syndrome; G47.00 Insomnia, unspecified; F31.9 Bipolar disorder, unspecified; F41.9 Anxiety disorder, unspecified; F43.10 Post-traumatic stress disorder, unspecified; E78.5 Hyperlipidemia, unspecified; F12.90 Cannabis use, unspecified, uncomplicated; I10 Essential (primary) hypertension; J44.9 Chronic obstructive pulmonary disease, unspecified; Z91.81 History of falling; Z87.891 Personal history of nicotine dependence; Z79.899 Other long term (current) drug therapy; Z88.5 Allergy status to narcotic agent; Z88.8 Allergy status to other drugs, medicaments and biological substances
CPT/HCPCS: 99211

== ENCOUNTER 2023-05-02 19:25 | Outpatient (CLI) | payer MEDICARE, OTHER ==
--- NOTE | 2023-05-08 15:07 | P.PCN ---
Description of Procedure: POLYSOMNOGRAPHY REPORT PROCEDURE(S)/DATE(S): Polysomnography 05/02/2023 CLINICAL: Patient has been seen in the sleep center for evaluation of obstructive sleep apnea-hypopnea syndrome. Please see my consultation. Sleep study has been done for evaluation of patient breathing during the sleep. PROCEDURE: The standard montage for clinical polysomnography included the electroencephalogram, the electrooculogram, the mentalis surface electromyography and Lead II cardiography. The respiratory battery consisted of measurements of nasal/buccal air flow, pressure transducer measurements from nose, thoracic and/or abdominal effort and intercostal surface electromyography. Video monitoring has been done to check for any parasomnia events. Nocturnal oxyhemoglobin saturations were obtained by finger oximetry. Step-wadsworth titration with positive airway pressure was utilized to control the respiratory events, if necessary. RESULTS: During the diagnostic sleep study sleep efficiency was significantly decreased to 61.8%. Latency to sleep onset was significantly prolonged to 103.0 min. Sleep architecture showed stage NI significantly increased to 19.3%, Delta sleep was absent 0%, REM sleep was short 13.0%. Respiratory channel showed 0 obstructive apneas, 0 mixed apneas, 0 central apneas, 19 hypopneas with lowest oxygen level 90%. Total apnea hypopnea index was 4.5. Heart rate was in the range between 56 and 68, average 63. EMG showed 0 periodic limb movements per hour. IMPRESSIONS: 1. Very minimal abnormalities of respiration, total apnea-hypopnea index 4.5 following CMS criteria's, which is in normal range following present recommendations. No significant oxygen desaturation 2. No significant periodic limb movements have been documented. 3. Long sleep latency, low sleep efficiency may indicate insomnia or first night adaptation respond. 4. Snoring have been documented during the sleep study. Please see other impressions from consultation PLAN: 1. I will see patient for follow-up visit to explain results of the test and recommendations. 2. Sleep hygiene with regular time in bed for at least 7-1/2 hours. 3. No driving if feeling sleepiness. Thank you very much for allowing me to participate in the management of your patient. Sincerely, Angel Terrell MD, PhD, FAASM. Diplomat of [place] [employer], Sleep Medicine Board by [place] [employer] Tattoo Artist [facility] [place]
== END 2023-05-03 05:45 | disposition home or self-care (01) ==
LOC: 3 N SLEEP 19:25
PROVIDERS: ATTEND Internal Medicine
DX: G47.21 Circadian rhythm sleep disorder, delayed sleep phase type (principal); G47.00 Insomnia, unspecified; R06.83 Snoring; F12.90 Cannabis use, unspecified, uncomplicated; Z88.5 Allergy status to narcotic agent; Z88.8 Allergy status to other drugs, medicaments and biological substances; Z87.891 Personal history of nicotine dependence
CPT/HCPCS: 95810

== ENCOUNTER → 2023-05-29 | Outpatient (CLI) | payer MEDICARE, OTHER ==
[2023-05-29 11:56] VITALS: BP 118/75; PULSE 70; RESP 16; TEMP 98.2
--- NOTE | 2023-05-29 12:19 | P.PN ---
Subjective DATE: 05/29/2023 FOLLOW UP VISIT. Patient returned to sleep center for follow-up visit to discuss results of sleep study and following plan. I discussed results of sleep study with patient in details. Very minimal abnormalities of respiration with apnea hypopnea index 4.5, which is in normal range by today's criteria's. Lowest oxygen level was 90%, which is normal. No significant periodic limb movements have been documented. Sleep study showed low sleep efficiency and long sleep latency. Patient has difficulties with initiating sleep at home. [place] sleepiness scale is 2. Sometimes patient feels tiredness and sleepiness during the day has to lay down in the middle of the day, but she is not always falling asleep at the time MEDICATIONS:1. Clonazepam 0.5 mg twice a day 2. Albuterol 3. Mirtazapine at night 4. Amlodipine 5. Fluoxetine 6. Pantoprazole 7. Atorvastatin During physical exam: GENERAL: A pleasant patient without any distress. VITAL SIGNS: Please see below. HEENT: PERRLA, EOMI. NECK: Supple. No JVD. LUNGS: Clear to percussion and to auscultation. Good air exchange. No wheezing or rhonchi. HEART: S1, S2 regular. ABDOMEN: Soft and nontender. EXTREMITIES: No clubbing or cyanosis. LEAD MANUFACTURING ENGINEER: Awake, alert, and oriented x3. No focal deficit. Impressions: 1. No significant respiratory abnormalities by results of polysomnogram 2. No significant amount of periodic limb movements. 3. Long sleep latency and low sleep efficiency, possibly psychophysiological insomnia and insomnia secondary to anxiety. 4. Bipolar disorder. 5. Depression. 6. Anxiety. 7. PTSD. 8. Hypertension. 9. Hyperlipidemia. 10 COPD Plan: 1. Consider to increase dose of clonazepam at bedtime to 0.75 mg, if necessary to 1 mg. Patient is using clonazepam 0.5 mg twice a day for about 10 years according to patient. 2. Sleep hygiene with regular time in bed for at least 8 hours. 3. Precautions related to driving. No driving if feel any sleepiness. Patient is aware about civil and criminal liability for unsafe driving, promised to follow recommendations. 4. Follow up visit in 4-6 months or earlier if patient has any problems. Thank you very much for allowing me to participate in the management of your patient. Angel Terrell MD, PhD, FAASM. Diplomat of [place] Board of Sleep Medicine, Sleep Medicine Board by [place] [employer] of Internal Medicine Transport Engineer [facility] [place] Objective - Vital Signs Vital signs: Vital Signs Temp 98.2 F 05/29/23 11:41 Pulse 70 05/29/23 11:41 Resp 16 05/29/23 11:41 BP 118/75 05/29/23 11:41 Pulse Ox 96 05/29/23 11:41 FiO2 Intake & Output 05/28/23 05/29/23 05/29/23 18:59 06:59 18:59 Weight 76.204 kg
== END ==
LOC: 3 N SLEEP 10:45
PROVIDERS: ATTEND Internal Medicine
DX: E78.5 Hyperlipidemia, unspecified (principal); F31.9 Bipolar disorder, unspecified; F43.10 Post-traumatic stress disorder, unspecified; G47.21 Circadian rhythm sleep disorder, delayed sleep phase type; I10 Essential (primary) hypertension; J44.9 Chronic obstructive pulmonary disease, unspecified; Z79.899 Other long term (current) drug therapy; Z88.8 Allergy status to other drugs, medicaments and biological substances; Z88.5 Allergy status to narcotic agent; Z87.891 Personal history of nicotine dependence
CPT/HCPCS: 99212

== ENCOUNTER → 2023-07-03 | Outpatient (CLI) | payer MEDICARE, OTHER ==
--- NOTE | 2023-07-03 09:05 | US ---
EXAMINATION TYPE: US pelvic complete DATE OF EXAM: 07/03/2023 COMPARISON: 2017 CLINICAL INDICATION: Female, 57 years old with history of N93.9 ABNORMAL UTERINE AND VAGINAL BLEEDING , UNSPE; Patient states hysterectomy 25 years ago TECHNIQUE: Transabdominal (TA). Transabdominal sonographic images of the pelvis were acquired. Date of LMP: over 25 years ago EXAM MEASUREMENTS: Uterus: Surgically absent Endometrial Stripe: Surgically absent Right Ovary: 1.9 x 1.1 x 1.4 cm 1. Uterus: Surgically absent. No definitive abnormal soft tissue in the hysterectomy bed. 2. Endometrium: Surgically absent 3. Right Ovary: Appears wnl 4. Left Ovary: Unable to visualize likely due to overlying bowel gas. 5. Bilateral Adnexa: wnl 6. Posterior cul-de-sac: wnl IMPRESSION: 1. Post hysterectomy without ultrasound evidence for an abnormality. 2. Nonvisualization of the left ovary likely due to overlying bowel gas.
== END | disposition home or self-care (01) ==
LOC: RADUSWWP 07:36
PROVIDERS: ATTEND Family Medicine
DX: N93.9 Abnormal uterine and vaginal bleeding, unspecified (principal); Z90.710 Acquired absence of both cervix and uterus
CPT/HCPCS: 76856

== ENCOUNTER → 2023-08-30 | Day surgery (SDC) | payer MEDICARE, OTHER ==
[2023-08-28 11:17] VITALS: BMI 30.1
--- NOTE | 2023-08-29 17:51 | HP ---
HISTORY AND PHYSICAL CHIEF COMPLAINT: Chronic laryngitis. HISTORY OF PRESENT ILLNESS: This patient is a 57-year-old female, who is well known to my office. She smokes approximately 1/2 to 1 pack of cigarettes per day, although she states she is trying to quit. She recently presented to my office complaining of having intermittent chronic laryngitis with significant hoarseness for several months. She had previously undergone a suspension microlaryngoscopy with removal of a benign lesion from the left true vocal cord. She had been advised to quit smoking. The patient states she is a reformed alcoholic and does not drink any alcohol for the past 15 years. She denied any referred otalgia or difficulty swallowing. At the time that she was seen in my office, clinical examination including indirect laryngoscopy with a headlight, mirror revealed a possible suspicious lesion on the anterior left true vocal cord. However, the patient does have an overhanging epiglottis, and it was difficult to assess the entire larynx. Because of a history of heavy smoking, it was recommended that she undergo a repeat suspension microlaryngoscopy with biopsy and possible laser under general anesthesia. PAST MEDICAL HISTORY: Reveals she has allergies to morphine. MEDICATIONS: Her current medications include: 1. Tramadol. 2. Symbicort. 3. Prozac. 4. Atorvastatin. 5. Amlodipine. 6. Nexium. 7. [place]. 8. Symbicort. 9. Zoloft. 10.Mirtazapine. 11.Albuterol. REVIEW OF SYSTEMS: Reveals, CARDIOVASCULAR SYSTEM: Positive for hypotension. RESPIRATORY: Positive for COPD/emphysema. GASTROINTESTINAL: Positive for GERD (gastroesophageal reflux disorder). METABOLIC/ENDOCRINE SYSTEM: Positive for hypercholesterolemia. The remainder of the review of systems is unremarkable. PREVIOUS SURGERIES: Include: 1. Suspension microlaryngoscopy with biopsy and laser. 2. Three benign breast biopsies. 3. Appendectomy. 4. Cholecystectomy. 5. Two shoulder surgeries. PHYSICAL EXAMINATION: GENERAL: This patient is a 57-year-old female, who was alert and cooperative. HEENT: The patient is normocephalic. Tympanic membranes are normal. Middle ear space is free of any fluid or infection. Pupils are equal, round, and reactive to light and accommodation. Extraocular movements are within normal limits. Intranasal examination reveals moderate to severe septal deviation with compensatory hypertrophy of inferior turbinates and a moderate amount of mucus on the mucous membranes draining down to the posterior pharynx. Examination of the oropharynx and larynx is as described above and will not be repeated here. Remainder of the head and neck exam is essentially within normal limits. CHEST/CARDIOVASCULAR: Lung gilmore are clear to percussion and auscultation. Lung sounds are distant. The patient is in regular sinus rhythm. S1, S2 are present without any murmurs, S3s, or S4s. Peripheral pulses are bilaterally symmetrical. ABDOMEN: There is no evidence any masses, megaly, or tenderness. The abdomen is soft. SKIN: Unremarkable. MUSCULOSKELETAL/NEUROLOGICAL: Within normal limits. PELVIC/RECTAL: This should be printed. The pelvic/rectal exam is deferred at this time because the patient has this done on a regular basis at her family physician's office. Remainder of physical exam is unremarkable. ASSESSMENT: Chronic laryngitis with vocal cord lesion. PLAN: The patient is scheduled to undergo a suspension microlaryngoscopy and biopsy and possible CO2 laser under general anesthesia. Attention, RNs in the pre-surgical area, I have not ordered any pre-surgical prophylactic antibiotics for this patient. If the Pharmacy Department sends any pre- surgical prophylactic antibiotics to the pre-surgical area for this patient, that order should be cancelled, and the medication should be returned to the pharmacy department. Please make sure that the patient's account is credited appropriately. I have ordered for this patient to receive 1000 mg of Ofirmev IV to be given once an intravenous line has been established. I have discussed the risks, benefits and alternative therapies for the above-mentioned procedure and for both sedation/analgesia as well as necessary blood product administration, if indicated, as they pertain to this patient. The patient has indicated her understanding and acceptance of the risks and procedures discussed. MMODL / IJN: [id number] /
[~2023-08-30] MED LIST changes: +DEXAMETHASONE SOD PHOSPHATE 4 MG/ML 1 ML VIAL ONE; +HYDROmorphone (PF) 1 MG/ML ONE; +LIDOCAINE 1% (10MG/ML) FOR IV START INTRADERMA PRN; +MIDAZOLAM 2 MG/2 ML VIAL IV PRN; +MIDAZOLAM 2 MG/2 ML VIAL ONE; +PROPOFOL 10 MG/ML 20 ML VIAL IV ONE; +ROCURONIUM 10 MG/ML (5 ML VIAL) IV ONE; +SUCCINYLCHOLINE CHLORIDE 200 MG/10 ML VIAL IV ONE; +fentaNYL (PF) 50 MCG/ML 2 ML AMP IVP PRN; +fentaNYL (PF) 50 MCG/ML 2 ML AMP ONE
[2023-08-30] MEDS: ONDANSETRON 4 MG/2 ML VIAL IVP ONE (09:10)
[2023-08-30] MEDS: DEXAMETHASONE SOD PHOSPHATE 4 MG/ML 1 ML VIAL IV ONE (09:10)
[2023-08-30] MEDS: ACETAMINOPHEN IV (For NPO) 1,000 MG in EMPTY BAG 1 BAG IVPB ONE (09:11)
[2023-08-30] MEDS: LACTATED RINGERS 1,000 ML IV SCH (09:11)
[2023-08-30] MEDS: IV FLUID CONTINUATION 1,000 ML IV ONE (09:22)
[2023-08-30 11:50] VITALS: TEMP 98
[2023-08-30 12:01] VITALS: RESP 16
[2023-08-30] MEDS: HYDROmorphone 0.5 MG/0.5 ML SYRINGE IVP PRN (12:03)
[2023-08-30 12:59] VITALS: BP 122/72; PULSE 72
--- NOTE | 2023-09-02 17:20 | OP ---
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 POSTOPERATIVE DIAGNOSIS: Chronic laryngitis with left true vocal cord polyp. ANESTHESIA: General. OPERATIVE PROCEDURE: Suspension microlaryngoscopy with laser of polyp of the left true vocal cord. COMPLICATIONS: None. ESTIMATED BLOOD LOSS: None. It is to be noted that a biopsy was not taken because the polyp appeared completely benign. DESCRIPTION OF PROCEDURE: The patient was placed on operating table in supine position and after uneventful induction and endotracheal intubation, satisfactory general anesthesia was obtained. Next, the patient's head was draped in the usual and customary fashion. Following this, the laryngoscope was introduced into the patient's oropharynx. The initial use of the standard laryngoscope was not possible and therefore a special narrow laryngoscope was introduced into the hypopharynx. The patient was noted to have a receding chin and a small oropharyngeal aperture which made the procedure difficult. The entire hypopharynx including the right and left piriform sinuses, base of tongue, valleculae and epiglottis were inspected and found to be free of any suspicious lesions. Next, the tip of the laryngoscope was placed at the laryngeal introitus and the epiglottis was elevated. Next, the Lewy apparatus was attached to the handle of the laryngoscope and the laryngoscope was suspended on the patient's chest. Using the Zeiss operating microscope without any magnified visualization, one could see that there was a small polypoid lesion located in the midportion of the left true vocal cord. No other suspicious lesions were noted. Because the polypoid lesion appeared to be completely benign, it was elected not to biopsy this area. Instead, it was simply lasered using the laser on the usual settings to vaporize the lesion completely. At this point, the procedure was terminated. The patient was given 10 mg of Decadron intraoperatively to reduce any laryngeal edema. The procedure was terminated. The patient tolerated the procedure well. Estimated blood loss was 0. The patient was returned to recovery room in satisfactory condition. Again, there were no biopsy specimens. MMODL / IJN: [id number] /
== END | disposition home or self-care (01) ==
LOC: OR 08:30
PROVIDERS: ATTEND Otolaryngology
DX: J37.0 Chronic laryngitis (principal); J38.1 Polyp of vocal cord and larynx; F17.210 Nicotine dependence, cigarettes, uncomplicated; Z79.51 Long term (current) use of inhaled steroids; Z90.49 Acquired absence of other specified parts of digestive tract
CPT/HCPCS: 31541; J2250; J0330; J1100; J2405; J3010; J1170 ×2; J0131; J2704

== ENCOUNTER → 2024-05-26 | Outpatient (CLI) | payer MEDICARE, OTHER | LOC: CPPFTMAIN 08:31 | PROVIDERS: ATTEND Family Medicine | DX: J44.9 Chronic obstructive pulmonary disease, unspecified (principal); F17.210 Nicotine dependence, cigarettes, uncomplicated; F12.90 Cannabis use, unspecified, uncomplicated; Z88.5 Allergy status to narcotic agent; Z88.8 Allergy status to other drugs, medicaments and biological substances | CPT/HCPCS: 94060; 94726; 94729 ==

== ENCOUNTER → 2024-06-01 | Outpatient (CLI) | payer MEDICARE, OTHER ==
--- NOTE | 2024-06-01 12:34 | CT ---
EXAMINATION TYPE: CT soft tissue neck w con DATE OF EXAM: 06/01/2024 7:55 AM COMPARISON: None. CLINICAL INDICATION: Female, 58 years old with history of R05.9 COUGH R13.10 DYSPHAGIA R49.0 HOARSENE SS, dysphagia TECHNIQUE: Axial images at 3 mm thick sections. Reconstructed images in the coronal plane and sagitt al plane are reviewed. Contrast used:100 mL of Isovue 300 with IV Contrast, (none if empty) Oral contrast used: (none if empty) CT DLP: 520.1 mGycm, Automated exposure control for dose reduction was used. FINDINGS: Limited CT sections are obtained the lung apices. The lung apices appear clear. CT neck: The torus tubarius and fossa of Rosenmuller are indistinct with fullness in the posterior na aminata passage. Direct visualization is recommended. [employer] spaces are normal. Minimal mucosal thi ckening in the left sphenoid sinus. Remaining visualized paranasal sinuses and mastoid air cells are clear. Parotid glands appear normal and symmetrical. Submandibular glands, are normal. Parapharyngeal spac es are normal. No suspicious adenopathy is evident. The hypopharynx appears within normal limits. Vocal cord level appear symmetrical. There is a 1.3 cm hypodensity within the right lobe thyroid. Correlate with ultrasound. Osseous structures are normal. Anterior cervical disc spacer is present lower cervical spine. IMPRESSION: 1. Fullness within the posterior nasal passage. Direct visualization recommended. 2. Hypodense nodule right lobe thyroid. Correlate with ultrasound. [facility], , 06/01/2024 12:31 PM
== END | disposition home or self-care (01) ==
LOC: RADCTMAIN 07:36
PROVIDERS: ATTEND Otolaryngology
DX: E04.1 Nontoxic single thyroid nodule (principal); R05.9 Cough, unspecified; R49.0 Dysphonia
CPT/HCPCS: 70491; Q9967

== ENCOUNTER → 2024-06-02 | Outpatient (CLI) | payer MEDICARE, OTHER ==
--- NOTE | 2024-06-02 11:51 | FL ---
EXAMINATION TYPE: FL barium swallow DATE OF EXAM: 06/02/2024 9:52 AM COMPARISON: None. CLINICAL INDICATION: Female, 58 years old with history of R13.10 DYSPHAGIA, UNSPECIFIED, patient with history of vocal cord polyps and 2 previous surgeries for removal. Patient complaining of food and d rink any stuck in the throat. History of GERD. Total Fluoroscopy Time: 2 minutes 9 seconds Total DAP: 125 mGycm2 50 images obtained. FINDINGS: During swallows, intermittent deep penetration is noted with light coating of the vocal fol ds. No aspiration is seen. Patient status post C5-C6 ACDF. There is some coating along the posterior pharyngeal wall which suggests some cervical dysmotility. Otherwise, hypopharyngeal anatomy is mainta ined. The thoracic portion as a normal course and caliber and normal motility. Only mild tertiary peristalt ic waves are encountered. The mucosa is normal and no persistent filling defect is encountered. There is a variably small to moderate-sized sliding hiatal hernia with severe gastroesophageal reflux visualized. IMPRESSION: 1. During swallows, there is intermittent deep penetration that results in light coating of the vocal folds. No aspiration. Some pharyngeal dysmotility is also noted. 2. No stricture or suspicious filling defect. 3. Variably small to moderate-sized sliding hiatal hernia with severe gastroesophageal reflux. [facility], , 06/02/2024 11:49 AM
== END | disposition home or self-care (01) ==
LOC: RADFLMAIN 08:30
PROVIDERS: ATTEND Otolaryngology
DX: K21.9 Gastro-esophageal reflux disease without esophagitis (principal); K44.9 Diaphragmatic hernia without obstruction or gangrene; R13.10 Dysphagia, unspecified
CPT/HCPCS: 74220

== ENCOUNTER → 2024-06-29 | Outpatient (CLI) | payer MEDICARE, OTHER ==
--- NOTE | 2024-06-30 10:31 | CTL ---
EXAMINATION TYPE: CT Low Dose Lung DATE OF EXAM: 06/29/2024 1:03 PM COMPARISON: 12/14/2020 SCREENING VISIT: Initial CT DIAGNOSTIC QUALITY: Limited, but interpretable CLINICAL INDICATION: Female, 58 years old with history of Z12.2 LUNG CA SC Z87.891 FORMER R22.1 SWELL [place] N, current smoker 1 pack a day for 44 years, Lung cancer screening, History of tobacco use. TECHNIQUE: Low dose computed tomography scan was performed through the chest at 1 mm thick sections a nd reconstructed images in the coronal plane at 1 mm thick sections. Contrast used: mL of , (none if empty) Oral contrast used: (none if empty) CT DLP: 76 mGycm, Automated exposure control for dose reduction was used. CT CTDI: 2.04 mGy, Automated exposure control for dose reduction was used. FINDINGS: LUNG NODULES: None. LUNGS: COPD: Severity: None Fibrosis: Severity: None Lymph nodes: None Other findings: Minimal groundglass opacities may be related to atelectasis at the right base. RIGHT PLEURAL SPACE: Effusion: None Calcification: None Thickening: None Pneumothorax: None LEFT PLEURAL SPACE: Effusion: None Calcification: None Thickening: None Pneumothorax: None HEART: Other: Ascending thoracic aorta at the level the main pulmonary artery measures 3.6 cm. The main pul monary artery at the bifurcation measures 2.7 cm. Heart Size: Normal Coronary calcification: Mild coronary artery calcifications present. Pericardial effusion: None OTHER FINDINGS: Upper abdomen: Normal Bony thorax: Normal Supraclavicular region: Normal IMPRESSION: No suspicious changes for primary or metastatic neoplasm FOLLOW UP CT CHEST RECOMMENDATION: Follow-up low-dose CT chest one year CT LUNG RAD: Lung-Rad 2 Benign Appearance or Behavior [facility], , 06/30/2024 10:29 AM
== END | disposition home or self-care (01) ==
LOC: RADCTMAIN 11:52
PROVIDERS: ATTEND Family Medicine
DX: Z12.2 Encounter for screening for malignant neoplasm of respiratory organs (principal); F17.210 Nicotine dependence, cigarettes, uncomplicated; R22.1 Localized swelling, mass and lump, neck
CPT/HCPCS: 71271